=== PATIENT | female | born 1980 | race American Indian/Alaskan Native ===

== ENCOUNTER 2016-06-23 22:30 | Emergency (ER) | payer BC, MEDICAID ==
[2016-06-23] MEDS ORDERED: Sodium Chloride 0.9% 1,000 ML IV ONE (22:44)
[2016-06-23 22:50] VITALS: BP 124/79
[2016-06-23 23:21] LABS: CHLORIDE,CL 105 mmol/L (101-111); SODIUM,NA 134 mmol/L (135-145)
[2016-06-23] MEDS ORDERED: Potassium Chloride 10 MEQ in Premix Bag 1 BAG IV ONE (23:30)
[2016-06-24] MEDS ORDERED: Sodium Chloride 0.9% 1,000 ML IV ONE (00:09)
[2016-06-24] MEDS ORDERED: Metoclopramide 10 MG/2 ML SDV IVPUSH ONE (00:13)
[2016-06-24] MEDS ORDERED: Potassium Chloride 10 MEQ in Premix Bag 1 BAG IV ONE (01:13)
--- NOTE | 2016-06-24 02:43 | EDM.PDOC ---
ED HPI GENERAL MEDICAL PROBLEM - General Chief Complaint: Gastrointestinal Problem Stated Complaint: VOMITING X4 DAYS, Time Seen by Provider: 06/23/16 23:00 Source of Information: Reports: Patient History Limitations: Reports: No Limitations - History of Present Illness INITIAL COMMENTS - FREE TEXT/NARRATIVE: c/o nausea and vomiting x 4 days, not feeling movement, estimates 21 weeks , LMP sometime around end january. At S on Saturday, given 2 liters of fluid and potassium , notes was told would get something for nausea but only got vitamins. No OB visit yet. Staes with vomiting feels like she is leaking mucus type fluid. Quality: Reports: Burning Severity: Moderate Associated Symptoms: Reports: Loss of Appetite, Malaise, Nausea/Vomiting ( unable to keep even sips of liquid down today.) Abdomen Pain Score (Numeric/FACES): 8 - Related Data Allergies Allergy/AdvReac Type Severity Reaction Status Date / Time No Known Allergies Allergy Verified 06/23/16 22:47 Home Meds: Home Meds Vits #93/Iron Fum/FA [ Formula Tablet] 1 tab PO DAILY 09/09/15 [History] Past Medical History HEENT History: Reports: None Cardiovascular History: Reports: None Respiratory History: Reports: None Gastrointestinal History: Reports: Other (See Below) Other Gastrointestinal History: "stomach infection" Genitourinary History: Reports: None [employer] History: Reports: Other OB/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 21 weeks along Musculoskeletal History: Reports: RA Neurological History: Reports: None Psychiatric History: Reports: Addiction, Depression Endocrine/Metabolic History: Reports: None Hematologic History: Reports: Anemia Other Immunologic History: RA Oncologic (Cancer) History: Reports: None Dermatologic History: Reports: Cellulitis, Eczema Other Dermatologic History: eczema - Infectious Disease History Infectious Disease History: Reports: Chicken Pox, Shingles Social & Family History - Tobacco Use Smoking Status *Q: Never Smoker Years of Tobacco use: 10 Packs/Tins Daily: 0.3 Used Tobacco, but Quit: No Second Hand Smoke Exposure: No - Caffeine Use Caffeine Use: Reports: Coffee - Recreational Drug Use Recreational Drug Use: No Drug Use in Last 12 Months: Yes Recreational Drug Type: Reports: Marijuana/Hashish Recreational Drug Use Frequency: Socially Recreational Drug Last Use: t-3 ED ROS GENERAL - Review of Systems Review Of Systems: ROS reveals no pertinent complaints other than HPI. ED EXAM, GI/ABD - Physical Exam Exam: See Below Exam Limited By: No Limitations General Appearance: Alert, Moderate Distress, Thin Eyes: Bilateral: EOMI Ears: Normal External Exam, Normal TMs Nose: Normal Inspection Throat/Mouth: Normal Inspection Head: Atraumatic, Normocephalic Neck: Normal Inspection, Supple, Non-Tender Respiratory/Chest: No Respiratory Distress, Lungs Clear Cardiovascular: Normal Peripheral Pulses, Regular Rate, Rhythm GI/Abdominal: Normal Bowel Sounds, Soft (Female) Exam: Deferred, Other (FHT doppled 140-150) Extremities: Normal Inspection Neurological: Alert, Oriented, Normal Cognition Psychiatric: Normal Affect Skin Exam: Warm, Dry, Intact, Normal Color Course - Vital Signs Last Recorded V/S: Last Vital Signs Temp 97.0 F 06/23/16 22:47 Pulse 85 06/23/16 22:47 Resp 18 06/23/16 22:47 BP 124/79 06/23/16 22:47 Pulse Ox 100 06/23/16 22:47 - Orders/Labs/Meds Orders: Active Orders 24 hr Category Date Time Status EKG 12 Lead [EKG Documentation Completion] [RC] URGENT Care 06/23/16 23:33 Active OB Ltd 1 or More Fetus [US] Urgent Exams 06/23/16 23:10 Taken Labs: Laboratory Tests 06/23/16 06/23/16 06/23/16 Range/Units 22:43 22:43 22:54 WBC 6.7 (5.0-10.0) 10^3/uL RBC 4.21 (4.2-5.4) 10^6/uL Hgb 12.0 (12.0-16.0) g/dL Hct 35.3 L (37.0-47.0) % MCV 83.8 (80-100) fL MCH 28.5 (27.0-34.0) pg MCHC 34.0 (33.0-35.0) g/dL Plt Count 240 (150-450) 10^3/uL Neut % (Auto) 73.3 (42.2-75.2) % Lymph % (Auto) 15.9 L (20.5-50.1) % [place] % (Auto) 10.7 H (2-8) % Eos % (Auto) 0.0 L (1.0-3.0) % Baso % (Auto) 0.1 (0.0-1.0) % Sodium (135-145) mmol/L Potassium (3.6-5.0) mmol/L Chloride (101-111) mmol/L Carbon Dioxide (21.0-31.0) mmol/L Anion Gap BUN (7-18) mg/dL Creatinine (0.6-1.3) mg/dL Est Cr Clr Drug Dosing mL/min Estimated GFR (MDRD) BUN/Creatinine Ratio Glucose (74-105) mg/dL Calcium (8.4-10.2) mg/dl Magnesium (1.8-2.5) mg/dL Total Bilirubin (0.2-1.0) mg/dL AST (10-42) IU/L ALT (10-60) IU/L Alkaline Phosphatase (42-121) IU/L Total Protein (6.7-8.2) g/dl Albumin (3.2-5.5) g/dl Globulin Albumin/Globulin Ratio Amylase (28-100) U/L Lipase (22-51) U/L HCG, Quant (0-25) mIU/ml Beta HCG, Quant mIU/ml Urine Color Dark yellow (YELLOW) Urine Appearance Slightly cloudy (CLEAR) Urine pH 7.0 (5.0-9.0) Ur Specific [place] 1.015 (1.005-1.030) Urine Protein 30 H (NEGATIVE) Urine Glucose (UA) Negative (NEGATIVE) Urine Ketones 80 H (NEGATIVE) Urine Occult Blood Negative (NEGATIVE) Urine Nitrite Negative (NEGATIVE) Urine Bilirubin Moderate H (NEGATIVE) Urine Urobilinogen 2.0 H (0.2-1.0) mg/dL Ur Leukocyte Esterase Negative (NEGATIVE) Urine RBC 0-5 /HPF Urine WBC 10-20 H (0-5/HPF) /HPF Ur Epithelial Cells Moderate H /HPF Urine Bacteria Few (0-FEW/HPF) /HPF Urine Mucus Few H /LPF Urine Opiates Screen Negative (NEGATIVE) Ur Oxycodone Screen Negative (NEGATIVE) Urine Methadone Screen Negative (NEGATIVE) Ur Barbiturates Screen Negative (NEGATIVE) U Tricyclic Antidepress Negative (NEGATIVE) Ur Phencyclidine Scrn Negative (NEGATIVE) Ur Amphetamine Screen Negative (NEGATIVE) U Methamphetamines Scrn Negative (NEGATIVE) Urine MDMA Screen Negative (NEGATIVE) U Benzodiazepines Scrn Negative (NEGATIVE) Urine Cocaine Screen Negative (NEGATIVE) U Marijuana (THC) Screen Positive H (NEGATIVE) Ethyl Alcohol mg/dL 06/23/16 06/23/16 Range/Units 22:54 22:54 WBC (5.0-10.0) 10^3/uL RBC (4.2-5.4) 10^6/uL Hgb (12.0-16.0) g/dL Hct (37.0-47.0) % MCV (80-100) fL MCH (27.0-34.0) pg MCHC (33.0-35.0) g/dL Plt Count (150-450) 10^3/uL Neut % (Auto) (42.2-75.2) % Lymph % (Auto) (20.5-50.1) % [place] % (Auto) (2-8) % Eos % (Auto) (1.0-3.0) % Baso % (Auto) (0.0-1.0) % Sodium 134 L (135-145) mmol/L Potassium 2.4 L (3.6-5.0) mmol/L Chloride 105 (101-111) mmol/L Carbon Dioxide 23.0 (21.0-31.0) mmol/L Anion Gap 8.4 BUN 9 (7-18) mg/dL Creatinine 0.4 L (0.6-1.3) mg/dL Est Cr Clr Drug Dosing 166.28 mL/min Estimated GFR (MDRD) > 60 BUN/Creatinine Ratio 22.50 Glucose 92 (74-105) mg/dL Calcium 8.4 (8.4-10.2) mg/dl Magnesium 1.8 (1.8-2.5) mg/dL Total Bilirubin 0.9 (0.2-1.0) mg/dL AST 18 (10-42) IU/L ALT 13 (10-60) IU/L Alkaline Phosphatase 37 L (42-121) IU/L Total Protein 6.9 (6.7-8.2) g/dl Albumin 3.2 (3.2-5.5) g/dl Globulin 3.7 Albumin/Globulin Ratio 0.86 Amylase 131 H (28-100) U/L Lipase 42 (22-51) U/L HCG, Quant > 1370 H (0-25) mIU/ml Beta HCG, Quant 61662 mIU/ml Urine Color (YELLOW) Urine Appearance (CLEAR) Urine pH (5.0-9.0) Ur Specific [place] (1.005-1.030) Urine Protein (NEGATIVE) Urine Glucose (UA) (NEGATIVE) Urine Ketones (NEGATIVE) Urine Occult Blood (NEGATIVE) Urine Nitrite (NEGATIVE) Urine Bilirubin (NEGATIVE) Urine Urobilinogen (0.2-1.0) mg/dL Ur Leukocyte Esterase (NEGATIVE) Urine RBC /HPF Urine WBC (0-5/HPF) /HPF Ur Epithelial Cells /HPF Urine Bacteria (0-FEW/HPF) /HPF Urine Mucus /LPF Urine Opiates Screen (NEGATIVE) Ur Oxycodone Screen (NEGATIVE) Urine Methadone Screen (NEGATIVE) Ur Barbiturates Screen (NEGATIVE) U Tricyclic Antidepress (NEGATIVE) Ur Phencyclidine Scrn (NEGATIVE) Ur Amphetamine Screen (NEGATIVE) U Methamphetamines Scrn (NEGATIVE) Urine MDMA Screen (NEGATIVE) U Benzodiazepines Scrn (NEGATIVE) Urine Cocaine Screen (NEGATIVE) U Marijuana (THC) Screen (NEGATIVE) Ethyl Alcohol < 5 mg/dL Meds: Medications Discontinued Medications Generic Name Dose Route Start Last Admin Trade Name Freq PRN Reason Stop Dose Admin Famotidine Confirm 06/24/16 02:45 06/24/16 02:49 Pepcid Administered 06/24/16 02:46 Not Given Dose 20 mg .ROUTE .STK-MED ONE Sodium Chloride 1,000 mls @ 999 mls/hr 06/23/16 22:44 06/23/16 22:56 Normal Saline IV 06/23/16 23:44 999 mls/hr .BOLUS ONE Administration Potassium Chloride 10 meq/ 100 mls @ 100 mls/hr 06/23/16 23:30 06/23/16 23:54 Premix IV 06/24/16 00:29 100 mls/hr ONETIME ONE Administration Sodium Chloride 1,000 mls @ 400 mls/hr 06/24/16 00:09 06/24/16 00:10 Normal Saline IV 06/24/16 02:38 400 mls/hr .BOLUS ONE Administration Potassium Chloride 10 meq/ 100 mls @ 100 mls/hr 06/24/16 01:13 06/24/16 01:25 Premix IV 06/24/16 02:12 100 mls/hr ONETIME ONE Administration Metoclopramide HCl 10 mg 06/24/16 00:13 06/24/16 00:18 Reglan IVPUSH 06/24/16 00:14 10 mg ONETIME ONE Administration Ondansetron HCl Confirm 06/24/16 02:45 06/24/16 02:49 Zofran Odt Administered 06/24/16 02:46 Not Given Dose 12 mg .ROUTE .STK-MED ONE - Radiology Interpretation Free Text/Narrative:: OB ultrasound, 31/03, normal appearing placenta and level of amniotic fluid. - Re-Assessments/Exams Free Text/Narrative Re-Assessment/Exam: 06/24/16 05:14 nausea improved, continued mild burning in stomach TC consult dr Jansen, recommend continued outpatient management with adition of pepcid and zofran to manage symptoms. Patient is agreeable. Departure - Departure Time of Disposition: 02:35 Disposition: Home, Self-Care 01 Condition: fair Clinical Impression: Hypokalemia, Second trimester Hyperemesis Qualifiers: Vomiting type: cyclical vomiting Nausea presence: with nausea Qualified Code(s) : G43.A1 - Cyclical vomiting, intractable - Discharge Information Instructions: Dehydration, Adult, [id number] Forms: ED Department Discharge Additional Instructions: Recheck potassium on saturday high potassium food, watermelon potatoes, melons and bananas zofran odt 4mg every 6 hours as needed for nausea pepcid 20mg daily for indigestion heartburn follow up with OB - My Orders Last 24 Hours: My Active Orders 06/23/16 23:10 OB Ltd 1 or More Fetus [US] Urgent 06/23/16 23:33 EKG 12 Lead [EKG Documentation Completion] [RC] URGENT - Assessment/Plan Last 24 Hours: My Active Orders 06/23/16 23:10 OB Ltd 1 or More Fetus [US] Urgent 06/23/16 23:33 EKG 12 Lead [EKG Documentation Completion] [RC] URGENT
[2016-06-24] MEDS ORDERED: Famotidine 20 MG Tab ONE (02:45)
[2016-06-24] MEDS ORDERED: Ondansetron 4 MG Tab.DIS ONE (02:45)
[2016-06-24] MEDS ORDERED: Famotidine 20 MG Tab PO ONE (02:45)
[2016-06-24] MEDS ORDERED: Ondansetron 4 MG Tab.DIS PO ONE (02:45)
--- NOTE | 2016-06-26 14:07 | EKG ---
06/23/2016 - SELVIN SHEA I reviewed the EKG, agree with the machine's reading. [facility] /[id number]
== END 2016-06-24 02:47 | disposition home or self-care (01) ==
LOC: DL.ED 22:30
DX: O09.522 Supervision of elderly multigravida, second trimester (principal); O99.282 Endocrine, nutritional and metabolic diseases complicating pregnancy, second trimester; E87.6 Hypokalemia; G43.A1 Cyclical vomiting, in migraine, intractable; F32.9 Major depressive disorder, single episode, unspecified; D64.9 Anemia, unspecified; M06.9 Rheumatoid arthritis, unspecified; Z3A.21 21 weeks gestation of pregnancy; Z79.899 Other long term (current) drug therapy
CPT/HCPCS: 36415; 76815; 80053; 80305; 81001; 82150; 83690; 83735; 84702; 85025; 93005; 93010; 96361; 96365; 96366; 96375; 99284; G0480; J2765; J3480; J7030; A9270-GY

== ENCOUNTER 2017-02-20 13:39 | Observation (INO) | payer MEDICAID, OTHER ==
[2017-02-20] MEDS ORDERED: Ondansetron 4 MG/2 ML SDV IV ONE ×2 (16:01→21:26)
[2017-02-20] MEDS ORDERED: Sodium Chloride 0.9% 1,000 ML IV ONE (16:01)
--- NOTE | 2017-02-20 16:07 | EDM.PDOC ---
<Naila Faith - Last Filed: 02/20/17 17:15> ED HPI GENERAL MEDICAL PROBLEM - General Chief Complaint: Abdominal Pain Stated Complaint: SICK X 3 DAYS, [facility] WOULD NOT SEE Time Seen by Provider: 02/20/17 15:56 Source of Information: Reports: Patient, RN, RN Notes Reviewed History Limitations: Reports: No Limitations - History of Present Illness INITIAL COMMENTS - FREE TEXT/NARRATIVE: Pt presents to the ER with c/o vomiting for 3 days. She states she cannot hold water down. She c/o "stomach and kidney pain". She rates the pain 11/20. Pt admits to fever, chills, N/V/D, chest pain, SOB, burning, frequency, urgency with urination. Pt also c/o metallic taste in the mouth. Onset: Sudden Onset Date: 02/17/17 Duration: Getting Worse Location: Reports: Abdomen Quality: Reports: Sharp, Throbbing Improves with: Reports: None Worsens with: Reports: None Associated Symptoms: Reports: Chest Pain, Cough, Fever/Chills, Loss of Appetite , Nausea/Vomiting, Shortness of Breath, Weakness Abdomen Pain Score (Numeric/FACES): 10 - Related Data Allergies Allergy/AdvReac Type Severity Reaction Status Date / Time No Known Allergies Allergy Verified 02/20/17 14:27 Past Medical History HEENT History: Reports: None Cardiovascular History: Reports: None Respiratory History: Reports: None Gastrointestinal History: Reports: Other (See Below) Other Gastrointestinal History: "stomach infection" Genitourinary History: Reports: 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 21 weeks along Musculoskeletal History: Reports: RA Neurological History: Reports: None Psychiatric History: Reports: Addiction, Depression Endocrine/Metabolic History: Reports: None Hematologic History: Reports: Anemia Other Immunologic History: RA Oncologic (Cancer) History: Reports: None Dermatologic History: Reports: Cellulitis, Eczema Other Dermatologic History: eczema - Infectious Disease History Infectious Disease History: Reports: Chicken Pox, Shingles Social & Family History - Tobacco Use Smoking Status *Q: Never Smoker Years of Tobacco use: 10 Packs/Tins Daily: 0.3 Used Tobacco, but Quit: No Second Hand Smoke Exposure: Yes - Caffeine Use Caffeine Use: Reports: Coffee, Soda - Recreational Drug Use Recreational Drug Use: No Drug Use in Last 12 Months: Yes Recreational Drug Type: Reports: Marijuana/Hashish Recreational Drug Use Frequency: Socially Recreational Drug Last Use: t-3 ED ROS GENERAL - Review of Systems Review Of Systems: ROS reveals no pertinent complaints other than HPI. ED EXAM, GI/ABD - Physical Exam Exam: See Below Exam Limited By: No Limitations General Appearance: Alert, WD/WN, Moderate Distress Eyes: Bilateral: Normal Appearance, EOMI Ears: Normal External Exam, Hearing Grossly Normal Nose: Normal Inspection Throat/Mouth: Normal Inspection, Normal Voice, No Airway Compromise Head: Atraumatic, Normocephalic Neck: Normal Inspection, Full Range of Motion Respiratory/Chest: No Respiratory Distress, Lungs Clear, Normal Breath Sounds, No Accessory Muscle Use, Chest Non-Tender Cardiovascular: Normal Peripheral Pulses, Regular Rate, Rhythm, No Edema, No Gallop, No JVD, No Murmur, No Rub GI/Abdominal Exam: Normal Bowel Sounds, Soft, Tender (Female) Exam: Deferred Rectal (Female) Exam: Deferred Back Exam: Normal Inspection, Full Range of Motion Extremities: Normal Inspection, Normal Range of Motion, Non-Tender, No Pedal Edema, Normal Capillary Refill Neurological: Alert, Oriented, CN II-XII Intact, Normal Cognition, No Motor/ Sensory Deficits Psychiatric: Normal Affect, Depressed Mood, Tearful Skin Exam: Warm, Dry, Intact, Normal Color, No Rash Lymphatic: No Adenopathy Course - Vital Signs Last Recorded V/S: Last Vital Signs Temp 38.2 C H 02/21/17 02:55 Pulse 93 02/21/17 02:55 Resp 16 02/21/17 02:55 BP 135/79 02/21/17 02:55 Pulse Ox 100 02/21/17 02:55 - Orders/Labs/Meds Orders: Active Orders 24 hr Category Date Time Status Vital Signs [RC] Q4H Care 02/20/17 21:46 Active Clear Liquid Diet [DIET] Diet 02/20/17 Dinner Active CBC WITH AUTO DIFF [HEME] Stat Lab 02/21/17 07:01 Ordered COMPREHENSIVE METABOLIC PN,CMP [CHEM] Stat Lab 02/21/17 07:01 Ordered CULTURE BLOOD [BC] Stat Lab 02/20/17 15:48 Received CULTURE BLOOD [BC] Stat Lab 02/20/17 17:16 Received MAGNESIUM [CHEM] Stat Lab 02/21/17 07:01 Ordered Acetaminophen [Tylenol] Med 02/21/17 03:19 Active 650 mg PO ONETIME PRN Blood Culture x2 Reflex Set [OM.PC] Stat Oth 02/20/17 16:01 Ordered Medication Orders Acetaminophen (Tylenol) 650 mg PO ONETIME PRN PRN Reason: Fever Stop: 02/21/17 07:30 Last Admin: 02/21/17 03:54 Dose: 650 mg Labs: Laboratory Tests 02/20/17 02/20/17 02/20/17 Range/Units 14:45 14:45 14:45 WBC (5.0-10.0) 10^3/uL RBC (4.2-5.4) 10^6/uL Hgb (12.0-16.0) g/dL Hct (37.0-47.0) % MCV (80-100) fL MCH (27.0-34.0) pg MCHC (33.0-35.0) g/dL Plt Count (150-450) 10^3/uL Neut % (Auto) (42.2-75.2) % Lymph % (Auto) (20.5-50.1) % [place] % (Auto) (2-8) % Eos % (Auto) (1.0-3.0) % Baso % (Auto) (0.0-1.0) % Sodium (135-145) mmol/L Potassium (3.6-5.0) mmol/L Chloride (101-111) mmol/L Carbon Dioxide (21.0-31.0) mmol/L Anion Gap BUN (7-18) mg/dL Creatinine (0.6-1.3) mg/dL Est Cr Clr Drug Dosing mL/min Estimated GFR (MDRD) BUN/Creatinine Ratio Glucose (74-105) mg/dL Lactic Acid (0.5-2.2) mmol/L Calcium (8.4-10.2) mg/dl Total Bilirubin (0.2-1.0) mg/dL AST (10-42) IU/L ALT (10-60) IU/L Alkaline Phosphatase (42-121) IU/L Total Protein (6.7-8.2) g/dl Albumin (3.2-5.5) g/dl Globulin Albumin/Globulin Ratio Urine Color Dark yellow (YELLOW) Urine Appearance Turbid (CLEAR) Urine pH 5.5 (5.0-9.0) Ur Specific [place] 1.025 (1.005-1.030) Urine Protein 30 H (NEGATIVE) Urine Glucose (UA) Negative (NEGATIVE) Urine Ketones Trace H (NEGATIVE) Urine Occult Blood Negative (NEGATIVE) Urine Nitrite Negative (NEGATIVE) Urine Bilirubin Negative (NEGATIVE) Urine Urobilinogen 0.2 (0.2-1.0) mg/dL Ur Leukocyte Esterase Negative (NEGATIVE) Urine RBC 0-5 /HPF Urine WBC 5-10 H (0-5/HPF) /HPF Ur Epithelial Cells Few /HPF Amorphous Sediment Many H (0/HPF) /HPF Urine Bacteria Few (0-FEW/HPF) /HPF Urine Mucus Moderate H /LPF Urine HCG, Qual Negative Urine Opiates Screen Negative (NEGATIVE) Ur Oxycodone Screen Negative (NEGATIVE) Urine Methadone Screen Negative (NEGATIVE) Ur Barbiturates Screen Negative (NEGATIVE) U Tricyclic Antidepress Negative (NEGATIVE) Ur Phencyclidine Scrn Negative (NEGATIVE) Ur Amphetamine Screen Negative (NEGATIVE) U Methamphetamines Scrn Negative (NEGATIVE) Urine MDMA Screen Negative (NEGATIVE) U Benzodiazepines Scrn Negative (NEGATIVE) Urine Cocaine Screen Negative (NEGATIVE) U Marijuana (THC) Screen Positive H (NEGATIVE) Ethyl Alcohol mg/dL 02/20/17 02/20/17 02/20/17 Range/Units 15:48 15:48 15:48 WBC 8.6 (5.0-10.0) 10^3/uL RBC 5.56 H (4.2-5.4) 10^6/uL Hgb 13.4 (12.0-16.0) g/dL Hct 41.4 (37.0-47.0) % MCV 74.5 L D (80-100) fL MCH 24.1 L (27.0-34.0) pg MCHC 32.4 L (33.0-35.0) g/dL Plt Count 423 D (150-450) 10^3/uL Neut % (Auto) 67.7 (42.2-75.2) % Lymph % (Auto) 20.4 L (20.5-50.1) % [place] % (Auto) 11.8 H (2-8) % Eos % (Auto) 0.0 L (1.0-3.0) % Baso % (Auto) 0.1 (0.0-1.0) % Sodium 138 (135-145) mmol/L Potassium 2.8 L (3.6-5.0) mmol/L Chloride 98 L (101-111) mmol/L Carbon Dioxide 29.0 (21.0-31.0) mmol/L Anion Gap 13.8 BUN 20 H (7-18) mg/dL Creatinine 0.7 (0.6-1.3) mg/dL Est Cr Clr Drug Dosing 86.18 mL/min Estimated GFR (MDRD) > 60 BUN/Creatinine Ratio 28.57 Glucose 101 (74-105) mg/dL Lactic Acid 1.5 (0.5-2.2) mmol/L Calcium 9.6 (8.4-10.2) mg/dl Total Bilirubin 0.4 (0.2-1.0) mg/dL AST 27 (10-42) IU/L ALT 17 (10-60) IU/L Alkaline Phosphatase 73 (42-121) IU/L Total Protein 9.7 H (6.7-8.2) g/dl Albumin 5.0 (3.2-5.5) g/dl Globulin 4.7 Albumin/Globulin Ratio 1.06 Urine Color (YELLOW) Urine Appearance (CLEAR) Urine pH (5.0-9.0) Ur Specific [place] (1.005-1.030) Urine Protein (NEGATIVE) Urine Glucose (UA) (NEGATIVE) Urine Ketones (NEGATIVE) Urine Occult Blood (NEGATIVE) Urine Nitrite (NEGATIVE) Urine Bilirubin (NEGATIVE) Urine Urobilinogen (0.2-1.0) mg/dL Ur Leukocyte Esterase (NEGATIVE) Urine RBC /HPF Urine WBC (0-5/HPF) /HPF Ur Epithelial Cells /HPF Amorphous Sediment (0/HPF) /HPF Urine Bacteria (0-FEW/HPF) /HPF Urine Mucus /LPF Urine HCG, Qual Urine Opiates Screen (NEGATIVE) Ur Oxycodone Screen (NEGATIVE) Urine Methadone Screen (NEGATIVE) Ur Barbiturates Screen (NEGATIVE) U Tricyclic Antidepress (NEGATIVE) Ur Phencyclidine Scrn (NEGATIVE) Ur Amphetamine Screen (NEGATIVE) U Methamphetamines Scrn (NEGATIVE) Urine MDMA Screen (NEGATIVE) U Benzodiazepines Scrn (NEGATIVE) Urine Cocaine Screen (NEGATIVE) U Marijuana (THC) Screen (NEGATIVE) Ethyl Alcohol < 5 mg/dL 02/20/17 Range/Units 20:10 WBC (5.0-10.0) 10^3/uL RBC (4.2-5.4) 10^6/uL Hgb (12.0-16.0) g/dL Hct (37.0-47.0) % MCV (80-100) fL MCH (27.0-34.0) pg MCHC (33.0-35.0) g/dL Plt Count (150-450) 10^3/uL Neut % (Auto) (42.2-75.2) % Lymph % (Auto) (20.5-50.1) % [place] % (Auto) (2-8) % Eos % (Auto) (1.0-3.0) % Baso % (Auto) (0.0-1.0) % Sodium 140 (135-145) mmol/L Potassium 3.4 L (3.6-5.0) mmol/L Chloride 108 (101-111) mmol/L Carbon Dioxide 26.0 (21.0-31.0) mmol/L Anion Gap 9.4 BUN 16 (7-18) mg/dL Creatinine 0.5 L (0.6-1.3) mg/dL Est Cr Clr Drug Dosing 120.66 mL/min Estimated GFR (MDRD) > 60 BUN/Creatinine Ratio Glucose 112 H (74-105) mg/dL Lactic Acid (0.5-2.2) mmol/L Calcium 7.8 L D (8.4-10.2) mg/dl Total Bilirubin (0.2-1.0) mg/dL AST (10-42) IU/L ALT (10-60) IU/L Alkaline Phosphatase (42-121) IU/L Total Protein (6.7-8.2) g/dl Albumin (3.2-5.5) g/dl Globulin Albumin/Globulin Ratio Urine Color (YELLOW) Urine Appearance (CLEAR) Urine pH (5.0-9.0) Ur Specific [place] (1.005-1.030) Urine Protein (NEGATIVE) Urine Glucose (UA) (NEGATIVE) Urine Ketones (NEGATIVE) Urine Occult Blood (NEGATIVE) Urine Nitrite (NEGATIVE) Urine Bilirubin (NEGATIVE) Urine Urobilinogen (0.2-1.0) mg/dL Ur Leukocyte Esterase (NEGATIVE) Urine RBC /HPF Urine WBC (0-5/HPF) /HPF Ur Epithelial Cells /HPF Amorphous Sediment (0/HPF) /HPF Urine Bacteria (0-FEW/HPF) /HPF Urine Mucus /LPF Urine HCG, Qual Urine Opiates Screen (NEGATIVE) Ur Oxycodone Screen (NEGATIVE) Urine Methadone Screen (NEGATIVE) Ur Barbiturates Screen (NEGATIVE) U Tricyclic Antidepress (NEGATIVE) Ur Phencyclidine Scrn (NEGATIVE) Ur Amphetamine Screen (NEGATIVE) U Methamphetamines Scrn (NEGATIVE) Urine MDMA Screen (NEGATIVE) U Benzodiazepines Scrn (NEGATIVE) Urine Cocaine Screen (NEGATIVE) U Marijuana (THC) Screen (NEGATIVE) Ethyl Alcohol mg/dL Meds: Medications Generic Name Dose Route Start Last Admin Trade Name Freq PRN Reason Stop Dose Admin Acetaminophen 650 mg 02/21/17 03:19 02/21/17 03:54 Tylenol PO 02/21/17 07:30 650 mg ONETIME PRN Administration Fever Discontinued Medications Generic Name Dose Route Start Last Admin Trade Name Freq PRN Reason Stop Dose Admin Acetaminophen 650 mg 02/20/17 17:06 02/20/17 18:04 Tylenol PO 02/20/17 17:07 650 mg NOW ONE Administration Famotidine 20 mg 02/20/17 21:25 02/20/17 21:40 Pepcid IVPUSH 02/20/17 21:26 20 mg ONETIME ONE Administration Sodium Chloride 1,000 mls @ 999 mls/hr 02/20/17 16:01 02/20/17 16:12 Normal Saline IV 02/20/17 17:01 999 mls/hr .BOLUS ONE Administration Potassium Chloride/Sodium Chloride 1,000 mls @ 500 mls/hr 02/20/17 17:00 11/28 20:19 Normal Saline With 20 Meq Kcl IV 500 mls/hr ASDIRECTED LINA Administration Dextrose/Sodium Chloride 1,000 mls @ 150 mls/hr 02/20/17 22:27 Dextrose 5%-1/4 Ns IV 02/21/17 05:06 ONETIME ONE Dextrose/Sodium Chloride 1,000 mls @ 125 mls/hr 02/20/17 22:37 02/21/17 01:44 Dextrose 5%-1/2 Ns IV 02/21/17 06:36 Not Given ONETIME ONE Dextrose/Sodium Chloride 500 mls @ 150 mls/hr 02/20/17 22:44 02/21/17 01:45 Dextrose 5%-1/4 Ns IV 02/21/17 01:46 150 mls/hr ONETIME ONE Administration Metoclopramide HCl 10 mg 02/21/17 03:51 02/21/17 03:54 Reglan IVPUSH 02/21/17 03:52 10 mg ONETIME ONE Administration Ondansetron HCl 4 mg 02/20/17 16:01 02/20/17 16:12 Zofran IV 02/20/17 16:02 4 mg ONETIME ONE Administration Ondansetron HCl 4 mg 02/20/17 21:26 02/20/17 21:38 Zofran IV 02/20/17 21:27 4 mg ONETIME ONE Administration Departure - Departure Disposition: Refer to Observation Clinical Impression: Gastroenteritis, Hypokalemia - Discharge Information Forms: ED Department Discharge - My Orders Last 24 Hours: My Active Orders 02/20/17 Dinner Clear Liquid Diet [DIET] 02/21/17 07:01 CBC WITH AUTO DIFF [HEME] Stat COMPREHENSIVE METABOLIC PN,CMP [CHEM] Stat MAGNESIUM [CHEM] Stat - Assessment/Plan Last 24 Hours: My Active Orders 02/20/17 Dinner Clear Liquid Diet [DIET] 02/21/17 07:01 CBC WITH AUTO DIFF [HEME] Stat COMPREHENSIVE METABOLIC PN,CMP [CHEM] Stat MAGNESIUM [CHEM] Stat <Taina Martinez - Last Filed: 02/21/17 06:51> Course - Re-Assessments/Exams Free Text/Narrative Re-Assessment/Exam: 02/20/17 21:26 Resting, VSS. C/O nausea and burning in stomach. IVF continue infusing. Orders for IV pepcid and zofran. 02/21/17 06:50 Intermittent dozing through night. C/o continued nausea, no vomiting, limited oral intake. Fever T max 100.[address] Barney. Departure - Departure Time of Disposition: 22:39 - My Orders Last 24 Hours: My Active Orders 02/20/17 Dinner Clear Liquid Diet [DIET] 02/21/17 07:01 CBC WITH AUTO DIFF [HEME] Stat COMPREHENSIVE METABOLIC PN,CMP [CHEM] Stat MAGNESIUM [CHEM] Stat - Assessment/Plan Last 24 Hours: My Active Orders 02/20/17 Dinner Clear Liquid Diet [DIET] 02/21/17 07:01 CBC WITH AUTO DIFF [HEME] Stat COMPREHENSIVE METABOLIC PN,CMP [CHEM] Stat MAGNESIUM [CHEM] Stat <EctorFengian - Last Filed: 02/21/17 07:27> Course - Re-Assessments/Exams Free Text/Narrative Re-Assessment/Exam: 02/21/17 07:23 Assumed care of pt from Taina BUCHANAN at 0700HR shift change with pt on the medical floor as an extended ER stay. The pt is well past a 4HR extended ER stay with continued nausea and low potassium. Morning labs pending. Pt will be converted to observation status and admitted by Dr. Mitchell. Departure - Departure Time of Disposition: 07:26 (admitted to Dr. Mitchell) Condition: Fair
[2017-02-20 16:34] LABS: CHLORIDE,CL 98 mmol/L (101-111); SODIUM,NA 138 mmol/L (135-145)
[2017-02-20] MEDS ORDERED: Acetaminophen 325 MG Tab PO ONE (17:06)
[2017-02-20] MEDS: NS + KCl 20mEq/L 1,000 ML IV SCH ×2 (18:04→20:19)
[2017-02-20 20:41] LABS: CHLORIDE,CL 108 mmol/L (101-111); SODIUM,NA 140 mmol/L (135-145)
[2017-02-20] MEDS ORDERED: Famotidine 20 MG/2 ML SDV IVPUSH ONE (21:25)
[2017-02-20] MEDS ORDERED: Dextrose 5 %-0.2 % NaCl 1,000 ML IV ONE (22:27)
[2017-02-20] MEDS ORDERED: Dextrose 5%-0.45% NaCl 1,000 ML IV ONE (22:37)
[2017-02-21] MEDS ORDERED: Acetaminophen 325 MG Tab PO PRN ×2 (03:19→08:00)
[2017-02-21] MEDS ORDERED: Metoclopramide 10 MG/2 ML SDV IVPUSH ONE (03:51)
[2017-02-21 07:52] LABS: CHLORIDE,CL 108 mmol/L (101-111); SODIUM,NA 138 mmol/L (135-145)
[2017-02-21] MEDS ORDERED: Ondansetron 4 MG/2 ML SDV IV PRN (07:58)
[2017-02-21] MEDS ORDERED: Sodium Chloride 0.9% 10 ML Syringe FLUSH PRN (08:00)
[2017-02-21] MEDS ORDERED: Zolpidem 5 MG Tab PO PRN (08:00)
--- NOTE | 2017-02-21 08:15 | PCM.HP ---
H&P History of Present Illness - General Date of Service: 02/21/17 Admit Problem/Dx: Admission Diagnosis/Problem Admission Diagnosis/Problem Nausea and vomiting Source of Information: Patient - History of Present Illness Initial Comments - Free Text/Narative: The patient is a 37-year-old lady with a history of alcohol use, marijuana use, rheumatoid arthritis. She presented with about 3 days of nausea vomiting. Associated with moderate lower abdominal pain. The pain is crampy. She describes foul-smelling urine, decreased oral intake, no blood in stool or urine. She had low-grade fever. She was noted to have severe hypokalemia. During an extended ER visit the patient has been receiving IV fluid and potassium supplement. She feels somewhat better but still has crampy pain and nausea. 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 21 weeks along Musculoskeletal History: Reports: RA Neurological History: Reports: None Psychiatric History: Reports: Addiction, Depression Endocrine/Metabolic History: Reports: None Hematologic History: Reports: Anemia Other Immunologic History: RA Oncologic (Cancer) History: Reports: None Dermatologic History: Reports: Cellulitis, Eczema Other Dermatologic History: eczema - Infectious Disease History Infectious Disease History: Reports: Chicken Pox, Shingles Social & Family History - Tobacco Use Smoking Status *Q: Never Smoker Years of Tobacco use: 10 Packs/Tins Daily: 0.3 Used Tobacco, but Quit: No Second Hand Smoke Exposure: Yes - Caffeine Use Caffeine Use: Reports: Coffee, Soda - Recreational Drug Use Recreational Drug Use: No Drug Use in Last 12 Months: Yes Recreational Drug Type: Reports: Marijuana/Hashish Recreational Drug Use Frequency: Socially Recreational Drug Last Use: t-3 H&P Review of Systems - Review of Systems: Review Of Systems: See Below General: Reports: Fever Pulmonary: Denies: Shortness of Breath, Wheezing Cardiovascular: Denies: Chest Pain, Edema Gastrointestinal: Reports: Abdominal Pain (Low abdominal, cramping) Genitourinary: Reports: Dysuria Neurological: Denies: Confusion Exam - Exam Exam: See Below - Vital Signs Vital Signs: Last Vital Signs Temp 38.2 C H 02/21/17 02:55 Pulse 93 02/21/17 02:55 Resp 16 02/21/17 02:55 BP 135/79 02/21/17 02:55 Pulse Ox 100 02/21/17 02:55 Weight: 52.163 kg - Exam General: Alert, Oriented Neck: Supple Lungs: Clear to Auscultation, Normal Respiratory Effort Cardiovascular: Regular Rate, Regular Rhythm GI/Abdominal Exam: Normal Bowel Sounds, Tender (Diffusely) Extremities: No Pedal Edema Skin: Warm, Dry Neuro Extensive - Mental Status: Alert, Oriented x3 - Patient Data Result Diagrams: 02/21/17 07:18 02/21/17 07:18 *Q Meaningful Use (ADM) - VTE *Q VTE Criteria *Q: - Stroke *Q Stroke Criteria *Q: - AMI *Q AMI Criteria *Q: - Problem List (1) Gastroenteritis SNOMED Code(s): 86855750 ICD Code: K52.9 - NONINFECTIVE GASTROENTERITIS AND COLITIS, UNSPECIFIED Status: Acute Current Visit: Yes (2) Hypokalemia SNOMED Code(s): 80807233 ICD Code: E87.6 - HYPOKALEMIA Status: Acute Current Visit: Yes (3) Fever SNOMED Code(s): 801133192 ICD Code: R50.9 - FEVER, UNSPECIFIED Status: Acute Current Visit: No Problem List Initiated/Reviewed/Updated: Yes Orders Last 24hrs: Active Orders 24 hr Category Date Time Status Patient Status [ADT] Routine ADT 02/21/17 08:00 Active Antiembolic Devices [RC] PER UNIT ROUTINE Care 02/21/17 08:01 Active Oxygen Therapy [RC] PRN Care 02/21/17 08:00 Active Peripheral IV Care [RC] . DIRECTED Care 02/21/17 08:01 Active Up With Assistance [RC] ASDIRECTED Care 02/21/17 08:00 Active VTE/DVT Education [RC] PER UNIT ROUTINE Care 02/21/17 08:00 Active Vital Signs [RC] Q4H Care 02/21/17 08:00 Active Nothing per Oral Now Diet [DIET] Diet 02/21/17 Lunch Active Acetaminophen [Tylenol] Med 02/21/17 08:00 Active 650 mg PO Q4H PRN Acetaminophen/HYDROcodone [[place] 325-10 MG] Med 02/21/17 08:00 Active 1 tab PO Q4H PRN Heparin Sodium Med 02/21/17 14:00 Active 5,000 units SUBCUT Q8HR Lactated Ringers [Ringers, Lactated] 1,000 ml Med 02/21/17 08:00 Active IV ASDIRECTED Morphine Med 02/21/17 07:59 Active 1 mg IVPUSH Q4H PRN Ondansetron [Zofran] Med 02/21/17 07:58 Active 4 mg IV Q6H PRN Pantoprazole [ProTONIX IV] Med 02/21/17 08:00 Active 40 mg IVPUSH Q12H Potassium Chloride [KCl 10 MEQ in Water 100 ML] 10 meq Med 02/21/17 08:15 Ordered Premix Bag 1 bag IV .Q2H Sodium Chloride 0.9% [Saline Flush] Med 02/21/17 08:00 Active 10 ml FLUSH ASDIRECTED PRN Zolpidem [Ambien] Med 02/21/17 08:00 Active 5 mg PO BEDTIME PRN Antiembolic Hose [OM.PC] Per Unit Routine Oth 02/21/17 08:01 Ordered Peripheral IV Insertion Adult [OM.PC] Routine Oth 02/21/17 08:00 Ordered Resuscitation Status Routine Resus Stat 02/21/17 08:00 Ordered Medication Orders Acetaminophen (Tylenol) 650 mg PO Q4H PRN PRN Reason: Pain (Mild 1-3)/fever Hydrocodone Bitart/Acetaminophen ([place] 325-10 Mg) 1 tab PO Q4H PRN PRN Reason: Pain (moderate 4-6) Heparin Sodium (Porcine) (Heparin Sodium) 5,000 units SUBCUT Q8HR LINA Lactated Ringer's (Ringers, Lactated) 1,000 mls @ 100 mls/hr IV ASDIRECTED LINA Potassium Chloride 10 meq/ (Premix) 100 mls @ 100 mls/hr IV .Q2H LINA Morphine Sulfate (Morphine) 1 mg IVPUSH Q4H PRN PRN Reason: Pain Ondansetron HCl (Zofran) 4 mg IV Q6H PRN PRN Reason: Nausea/Vomiting Pantoprazole Sodium (Protonix Iv) 40 mg IVPUSH Q12H LINA Sodium Chloride (Saline Flush) 10 ml FLUSH ASDIRECTED PRN PRN Reason: Keep Vein Open Zolpidem Tartrate (Ambien) 5 mg PO BEDTIME PRN PRN Reason: Sleep Assessment/Plan Comment:: Nausea, vomiting abdominal pain Patient's labs other than hypokalemia relatively benign. There is increased prevalence of similar nausea and vomiting episodes in the community activity relating to a viral infection. We'll treat the patient symptomatically For now keep nothing by mouth, use pain medication, nausea medication, Protonix. Hypokalemia Likely relates to the nausea, vomiting, decreased oral intake Will continue to supplement IV Hydrate the patient No apparent urinary tract infection or signs of kidney dysfunction or kidney stone Discussed with Dr. Barney
[2017-02-21] MEDS: Lactated Ringers 1,000 ML IV SCH ×2 (08:40→19:59)
[2017-02-21] MEDS: Pantoprazole 40 MG Vial IVPUSH SCH ×2 (08:47→19:48)
[2017-02-21] MEDS: Morphine 2 MG/ML Syringe IVPUSH PRN ×2 (08:51→14:03)
[2017-02-21] MEDS: Potassium Chloride 10 MEQ in Premix Bag 1 BAG IV SCH ×7 (12:56→19:45)
[2017-02-21] MEDS: Heparin Sodium 5,000 Units/ML Vial SUBCUT SCH ×2 (13:06→22:03)
[2017-02-21] MEDS: Acetaminophen/HYDROcodone 325-10 MG Tab PO PRN ×2 (17:16→22:02)
[2017-02-22] MEDS: Heparin Sodium 5,000 Units/ML Vial SUBCUT SCH (06:02)
[2017-02-22] MEDS: Lactated Ringers 1,000 ML IV SCH (06:07)
[2017-02-22] MEDS: Acetaminophen/HYDROcodone 325-10 MG Tab PO PRN ×2 (06:08→10:49)
[2017-02-22] MEDS: Pantoprazole 40 MG Vial IVPUSH SCH (08:36)
[2017-02-22] MEDS ORDERED: Potassium Chloride 10 MEQ Tab.ER PO ONE (10:27)
--- NOTE | 2017-02-22 10:43 | PCM.DCSUM1 ---
Discharge Summary - Hospital Course Free Text/Narrative:: Presented with nausea, vomiting, few watery bowel movements. Was complaining of abdominal pain, crampy pain. Noted to have severe hypokalemia Nausea, vomiting abdominal pain Patient's labs other than hypokalemia relatively benign. There is increased incidence of similar nausea and vomiting episodes in the community activity relating to a viral infection. Treated the patient symptomatically Hypokalemia Likely relates to the nausea, vomiting, decreased oral intake received IV supplement No apparent urinary tract infection or signs of kidney dysfunction or kidney stone has normal WBC, doubt abdominal infection, Follow-up with her primary care physician in a few days - Discharge Data Discharge Date: 02/22/17 Discharge Disposition: Home, Self-Care 01 Condition: Good - Discharge Diagnosis/Problem(s) (1) Gastroenteritis SNOMED Code(s): 15249620 ICD Code: K52.9 - NONINFECTIVE GASTROENTERITIS AND COLITIS, UNSPECIFIED Status: Acute Current Visit: Yes (2) Hypokalemia SNOMED Code(s): 27456353 ICD Code: E87.6 - HYPOKALEMIA Status: Acute Current Visit: Yes (3) Fever SNOMED Code(s): 495805736 ICD Code: R50.9 - FEVER, UNSPECIFIED Status: Acute Current Visit: No - Patient Instructions Diet: Usual Diet as Tolerated Activity: As Tolerated - Discharge Plan Prescriptions/Med Rec: Acetaminophen/HYDROcodone [[place] 325-10 MG] 1 tab PO Q4H PRN #12 tablet PRN Reason: Pain (Moderate 4-6) Home Medications: Home Meds Acetaminophen/HYDROcodone [[place] 325-10 MG] 1 tab PO Q4H PRN #12 tablet [Rx] Forms: ED Department Discharge Referrals: Bianca Sousa MD [Physician] - (in 3 days re: hypokalemia, abd pain, n/v) - General Info Date of Service: 02/22/17 - Review of Systems General: Denies: Fever, Weakness Pulmonary: Denies: Shortness of Breath Cardiovascular: Denies: Chest Pain Gastrointestinal: Reports: Abdominal Pain (Still some crampy pain but has improved). Denies: Nausea, Vomiting Genitourinary: Denies: Dysuria Neurological: Denies: Confusion - Patient Data Vitals - Most Recent: Last Vital Signs Temp 35.9 C 02/22/17 08:00 Pulse 55 L 02/22/17 08:00 Resp 18 02/22/17 08:00 BP 126/72 02/22/17 08:00 Pulse Ox 100 02/22/17 10:06 Weight - Most Recent: 51.347 kg I&O - Last 24 hours: Intake & Output 02/21/17 02/22/17 02/22/17 22:59 06:59 14:59 Intake Total 1083 1260 Balance 1083 1260 Med Orders - Current: Current Medications Acetaminophen (Tylenol) 650 mg PO Q4H PRN PRN Reason: Pain (Mild 1-3)/fever Hydrocodone Bitart/Acetaminophen ([place] 325-10 Mg) 1 tab PO Q4H PRN PRN Reason: Pain (moderate 4-6) Last Admin: 02/22/17 06:08 Dose: 1 tab Heparin Sodium (Porcine) (Heparin Sodium) 5,000 units SUBCUT Q8HR [facility] Last Admin: 02/22/17 06:02 Dose: 5,000 units Lactated Ringer's (Ringers, Lactated) 1,000 mls @ 100 mls/hr IV ASDIRECTED [facility] Last Admin: 02/22/17 06:07 Dose: 100 mls/hr Morphine Sulfate (Morphine) 1 mg IVPUSH Q4H PRN PRN Reason: Pain Last Admin: 02/21/17 14:03 Dose: 1 mg Ondansetron HCl (Zofran) 4 mg IV Q6H PRN PRN Reason: Nausea/Vomiting Last Admin: 02/21/17 13:18 Dose: 4 mg Pantoprazole Sodium (Protonix Iv) 40 mg IVPUSH Q12H [facility] Last Admin: 02/22/17 08:36 Dose: 40 mg Sodium Chloride (Saline Flush) 10 ml FLUSH ASDIRECTED PRN PRN Reason: Keep Vein Open Last Admin: 02/22/17 08:36 Dose: 10 ml Zolpidem Tartrate (Ambien) 5 mg PO BEDTIME PRN PRN Reason: Sleep Last Admin: 02/21/17 22:02 Dose: 5 mg Discontinued Medications Acetaminophen (Tylenol) 650 mg PO NOW ONE Stop: 02/20/17 17:07 Last Admin: 02/20/17 18:04 Dose: 650 mg Acetaminophen (Tylenol) 650 mg PO ONETIME PRN PRN Reason: Fever Stop: 02/21/17 07:30 Last Admin: 02/21/17 03:54 Dose: 650 mg Famotidine (Pepcid) 20 mg IVPUSH ONETIME ONE Stop: 02/20/17 21:26 Last Admin: 02/20/17 21:40 Dose: 20 mg Sodium Chloride (Normal Saline) 1,000 mls @ 999 mls/hr IV .BOLUS ONE Stop: 02/20/17 17:01 Last Admin: 02/20/17 16:12 Dose: 999 mls/hr Potassium Chloride/Sodium Chloride (Normal Saline With 20 Meq Kcl) 1,000 mls @ 500 mls/hr IV ASDIRECTED [facility] Last Admin: 02/20/17 20:19 Dose: 500 mls/hr Dextrose/Sodium Chloride (Dextrose 5%-1/4 Ns) 1,000 mls @ 150 mls/hr IV ONETIME ONE Stop: 02/21/17 05:06 Last Admin: 02/21/17 12:57 Dose: Not Given Dextrose/Sodium Chloride (Dextrose 5%-1/2 Ns) 1,000 mls @ 125 mls/hr IV ONETIME ONE Stop: 02/21/17 06:36 Last Admin: 02/21/17 01:44 Dose: Not Given Dextrose/Sodium Chloride (Dextrose 5%-1/4 Ns) 500 mls @ 150 mls/hr IV ONETIME ONE Stop: 02/21/17 01:46 Last Admin: 02/21/17 12:59 Dose: Not Given Potassium Chloride 10 meq/ (Premix) 100 mls @ 100 mls/hr IV Q2H [facility] Stop: 02/21/17 15:29 Last Admin: 02/21/17 13:24 Dose: Not Given Potassium Chloride 10 meq/ (Premix) 100 mls @ 100 mls/hr IV Q2H [facility] Stop: 02/21/17 19:59 Last Admin: 02/21/17 19:45 Dose: 50 mls/hr Metoclopramide HCl (Reglan) 10 mg IVPUSH ONETIME ONE Stop: 02/21/17 03:52 Last Admin: 02/21/17 03:54 Dose: 10 mg Ondansetron HCl (Zofran) 4 mg IV ONETIME ONE Stop: 02/20/17 16:02 Last Admin: 02/20/17 16:12 Dose: 4 mg Ondansetron HCl (Zofran) 4 mg IV ONETIME ONE Stop: 02/20/17 21:27 Last Admin: 02/20/17 21:38 Dose: 4 mg Potassium Chloride (Klor-Con 10) 40 meq PO ONETIME ONE Stop: 02/22/17 10:28 - Exam General: Reports: Alert, Oriented Neck: Reports: Supple Lungs: Reports: Clear to Auscultation, Normal Respiratory Effort GI/Abdominal Exam: Normal Bowel Sounds, Soft, Non-Tender, No Distention. No: Distended Extremities: No Pedal Edema *Q Meaningful Use (DIS) - VTE *Q VTE Criteria *Q: - Stroke *Q Stroke Criteria *Q: - AMI *Q AMI Criteria *Q:
[2017-02-22 11:29] VITALS: BP 137/78
== END 2017-02-22 13:25 | disposition home or self-care (01) ==
LOC: DL.ED 13:39 → DL.MS 02-21 07:42 → UNDOADMOB 02-21 07:42 → DL.MS 02-21 08:00
PROVIDERS: ADMIT Internal Medicine; ATTEND Internal Medicine
DX: K52.9 Noninfective gastroenteritis and colitis, unspecified (principal); E87.6 Hypokalemia; R50.9 Fever, unspecified; M06.9 Rheumatoid arthritis, unspecified
CPT/HCPCS: 36415; 80048; 80053; 80305; 81001; 81025; 83605; 83735; 85025; 87040; A9270; C9113; G0480; J1644; J2270; J2405; J2765; J3480; J7030; J7042; J7050; J7120; 96365; 96366; 96367; 96375; 96376; 99285; S0028

== ENCOUNTER 2017-02-27 12:21 | Emergency (ER) | payer OTHER ==
[2017-02-27 12:41] VITALS: BP 117/72
[2017-02-27 13:23] LABS: ACETAMINOPHEN < 10; CHLORIDE,CL 97 mmol/L (101-111); SODIUM,NA 138 mmol/L (135-145)
[2017-02-27] MEDS ORDERED: Ondansetron 4 MG/2 ML SDV IV ONE (13:51)
[2017-02-27] MEDS ORDERED: Sodium Chloride 0.9% 1,000 ML IV ONE (13:51)
[2017-02-27] MEDS ORDERED: Iopamidol 612 MG/ML 75 ML Bottle IVPUSH ONE (14:03)
--- NOTE | 2017-02-27 14:03 | EDM.PDOC ---
ED HPI GENERAL MEDICAL PROBLEM - General Chief Complaint: Abdominal Pain Stated Complaint: VOMITTING,STOMACH CRAMPING X 2 DAYS Time Seen by Provider: 02/27/17 13:45 Source of Information: Reports: Patient History Limitations: Reports: No Limitations - History of Present Illness INITIAL COMMENTS - FREE TEXT/NARRATIVE: This 37 yo female patient reports to the ED with a 2 day history of lower abdominal cramping and nausea. The patient reports she was seen in the ED about 1 week ago with similar symptoms. The patient reports that she was feeling well up to last night (after eating potatoes and velez). The patient reports she tried to smoke marijuana to stimulate her appetite. The patient questioned if it was possible to test for anyone poisoning her at her home. The patient reports that there are people at her house that she does not trust. Onset: Sudden Onset Date: 02/26/17 Duration: Constant Location: Reports: Abdomen Quality: Reports: Ache, Dull Severity: Moderate Improves with: Reports: None Worsens with: Reports: None Associated Symptoms: Reports: No Other Symptoms Lower Abdominal Pain Score (Numeric/FACES): 8 - Related Data Allergies Allergy/AdvReac Type Severity Reaction Status Date / Time No Known Allergies Allergy Verified 02/21/17 12:28 Home Meds: Home Meds Acetaminophen/HYDROcodone [[place] 325-10 MG] 1 tab PO Q4H PRN #12 tablet [Rx] Past Medical History HEENT History: Reports: None Cardiovascular History: Reports: None Respiratory History: Reports: None Gastrointestinal History: Reports: Other (See Below) Other Gastrointestinal History: "stomach infection" Genitourinary History: Reports: None [employer] History: Reports: Other OB/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 21 weeks along Musculoskeletal History: Reports: RA Neurological History: Reports: None Psychiatric History: Reports: Addiction, Depression Endocrine/Metabolic History: Reports: None Hematologic History: Reports: Anemia Other Immunologic History: RA Oncologic (Cancer) History: Reports: None Dermatologic History: Reports: Cellulitis, Eczema Other Dermatologic History: eczema - Infectious Disease History Infectious Disease History: Reports: Chicken Pox, Shingles - Past Surgical History HEENT Surgical History: Reports: None Cardiovascular Surgical History: Reports: None Respiratory Surgical History: Reports: None GI Surgical History: Reports: None Female Surgical History: Reports: Tubal Ligation Endocrine Surgical History: Reports: None Neurological Surgical History: Reports: None Musculoskeletal Surgical History: Reports: None Oncologic Surgical History: Reports: None Dermatological Surgical History: Reports: None Social & Family History - Family History Family Medical History: Noncontributory - Tobacco Use Smoking Status *Q: Never Smoker Years of Tobacco use: 15 Packs/Tins Daily: 1 Used Tobacco, but Quit: Yes Month Tobacco Last Used: 1-14 Second Hand Smoke Exposure: Yes - Caffeine Use Caffeine Use: Reports: Coffee, Energy Drinks, Soda, Tea - Recreational Drug Use Recreational Drug Use: Yes Drug Use in Last 12 Months: Yes Recreational Drug Type: Reports: Marijuana/Hashish Recreational Drug Use Frequency: Socially Recreational Drug Last Use: t-3 ED ROS GENERAL - Review of Systems Review Of Systems: ROS reveals no pertinent complaints other than HPI. ED EXAM, GI/ABD - Physical Exam Exam: See Below Exam Limited By: No Limitations General Appearance: Alert, WD/WN, Moderate Distress Eyes: Bilateral: Normal Appearance, EOMI Ears: Normal External Exam, Normal Canal, Hearing Grossly Normal, Normal TMs Nose: Normal Inspection, Normal Mucosa, No Blood Throat/Mouth: Normal Inspection, Normal Lips, Normal Teeth, Normal Gums, Normal Oropharynx, Normal Voice, No Airway Compromise Head: Atraumatic, Normocephalic Neck: Normal Inspection, Supple, Non-Tender, Full Range of Motion Respiratory/Chest: No Respiratory Distress, Lungs Clear, Normal Breath Sounds, No Accessory Muscle Use, Chest Non-Tender GI/Abdominal Exam: Normal Bowel Sounds, Soft, No Organomegaly, No Distention, No Abnormal Bruit, No Mass, Pelvis Stable, Tender (lower abdomen) (Female) Exam: Deferred Rectal (Female) Exam: Deferred Back Exam: Normal Inspection, Full Range of Motion, NT Extremities: Normal Inspection, Normal Range of Motion, Non-Tender, Normal Capillary Refill, No Pedal Edema Neurological: Alert, Oriented, CN II-XII Intact, Normal Cognition, Normal Gait, Normal Reflexes, No Motor/Sensory Deficits Psychiatric: Normal Affect, Normal Mood Skin Exam: Warm, Dry, Intact, Normal Color, No Rash Lymphatic: No Adenopathy Course - Vital Signs Last Recorded V/S: Last Vital Signs Temp 36.4 C 02/27/17 12:30 Pulse 111 H 02/27/17 12:30 Resp 18 02/27/17 12:30 BP 117/72 02/27/17 12:30 Pulse Ox 99 02/27/17 12:30 - Orders/Labs/Meds Orders: Active Orders 24 hr Category Date Time Status Abdomen Pelvis w Cont [CT] Urgent Exams 02/27/17 14:03 Taken Labs: Laboratory Tests 02/27/17 02/27/17 02/27/17 Range/Units 12:46 12:46 12:46 WBC (5.0-10.0) 10^3/uL RBC (4.2-5.4) 10^6/uL Hgb (12.0-16.0) g/dL Hct (37.0-47.0) % MCV (80-100) fL MCH (27.0-34.0) pg MCHC (33.0-35.0) g/dL Plt Count (150-450) 10^3/uL Neut % (Auto) (42.2-75.2) % Lymph % (Auto) (20.5-50.1) % [place] % (Auto) (2-8) % Eos % (Auto) (1.0-3.0) % Baso % (Auto) (0.0-1.0) % Sodium (135-145) mmol/L Potassium (3.6-5.0) mmol/L Chloride (101-111) mmol/L Carbon Dioxide (21.0-31.0) mmol/L Anion Gap BUN (7-18) mg/dL Creatinine (0.6-1.3) mg/dL Est Cr Clr Drug Dosing mL/min Estimated GFR (MDRD) BUN/Creatinine Ratio Glucose (74-105) mg/dL Calcium (8.4-10.2) mg/dl Magnesium (1.8-2.5) mg/dL Total Bilirubin (0.2-1.0) mg/dL AST (10-42) IU/L ALT (10-60) IU/L Alkaline Phosphatase (42-121) IU/L Ammonia (11-35) umol/L Total Protein (6.7-8.2) g/dl Albumin (3.2-5.5) g/dl Globulin Albumin/Globulin Ratio Amylase (28-100) U/L Lipase (22-51) U/L Urine Color Yellow (YELLOW) Urine Appearance Slightly cloudy (CLEAR) Urine pH 5.5 (5.0-9.0) Ur Specific [place] 1.020 (1.005-1.030) Urine Protein 100 H (NEGATIVE) Urine Glucose (UA) Negative (NEGATIVE) Urine Ketones 40 H (NEGATIVE) Urine Occult Blood Negative (NEGATIVE) Urine Nitrite Negative (NEGATIVE) Urine Bilirubin Small H (NEGATIVE) Urine Urobilinogen 0.2 (0.2-1.0) mg/dL Ur Leukocyte Esterase Trace H (NEGATIVE) Urine RBC 0-5 /HPF Urine WBC 5-10 H (0-5/HPF) /HPF Ur Epithelial Cells Moderate H /HPF Amorphous Sediment Many H (0/HPF) /HPF Urine Bacteria Few (0-FEW/HPF) /HPF Urine Mucus Many H /LPF Urine HCG, Qual Negative Urine Opiates Screen Negative (NEGATIVE) Ur Oxycodone Screen Negative (NEGATIVE) Urine Methadone Screen Negative (NEGATIVE) Acetaminophen Ur Barbiturates Screen Negative (NEGATIVE) U Tricyclic Antidepress Negative (NEGATIVE) Ur Phencyclidine Scrn Negative (NEGATIVE) Ur Amphetamine Screen Negative (NEGATIVE) U Methamphetamines Scrn Negative (NEGATIVE) Urine MDMA Screen Negative (NEGATIVE) U Benzodiazepines Scrn Negative (NEGATIVE) Urine Cocaine Screen Negative (NEGATIVE) U Marijuana (THC) Screen Positive H (NEGATIVE) 02/27/17 02/27/17 02/27/17 Range/Units 12:55 12:55 12:55 WBC 4.7 L (5.0-10.0) 10^3/uL RBC 5.71 H (4.2-5.4) 10^6/uL Hgb 13.9 D (12.0-16.0) g/dL Hct 43.3 (37.0-47.0) % MCV 75.8 L (80-100) fL MCH 24.3 L (27.0-34.0) pg MCHC 32.1 L (33.0-35.0) g/dL Plt Count 402 D (150-450) 10^3/uL Neut % (Auto) 63.6 (42.2-75.2) % Lymph % (Auto) 21.7 (20.5-50.1) % [place] % (Auto) 14.3 H (2-8) % Eos % (Auto) 0.2 L (1.0-3.0) % Baso % (Auto) 0.2 (0.0-1.0) % Sodium (135-145) mmol/L Potassium (3.6-5.0) mmol/L Chloride (101-111) mmol/L Carbon Dioxide (21.0-31.0) mmol/L Anion Gap BUN (7-18) mg/dL Creatinine (0.6-1.3) mg/dL Est Cr Clr Drug Dosing mL/min Estimated GFR (MDRD) BUN/Creatinine Ratio Glucose (74-105) mg/dL Calcium (8.4-10.2) mg/dl Magnesium 2.3 (1.8-2.5) mg/dL Total Bilirubin (0.2-1.0) mg/dL AST (10-42) IU/L ALT (10-60) IU/L Alkaline Phosphatase (42-121) IU/L Ammonia 20 (11-35) umol/L Total Protein (6.7-8.2) g/dl Albumin (3.2-5.5) g/dl Globulin Albumin/Globulin Ratio Amylase 92 (28-100) U/L Lipase 40 (22-51) U/L Urine Color (YELLOW) Urine Appearance (CLEAR) Urine pH (5.0-9.0) Ur Specific [place] (1.005-1.030) Urine Protein (NEGATIVE) Urine Glucose (UA) (NEGATIVE) Urine Ketones (NEGATIVE) Urine Occult Blood (NEGATIVE) Urine Nitrite (NEGATIVE) Urine Bilirubin (NEGATIVE) Urine Urobilinogen (0.2-1.0) mg/dL Ur Leukocyte Esterase (NEGATIVE) Urine RBC /HPF Urine WBC (0-5/HPF) /HPF Ur Epithelial Cells /HPF Amorphous Sediment (0/HPF) /HPF Urine Bacteria (0-FEW/HPF) /HPF Urine Mucus /LPF Urine HCG, Qual Urine Opiates Screen (NEGATIVE) Ur Oxycodone Screen (NEGATIVE) Urine Methadone Screen (NEGATIVE) Acetaminophen < 10 Ur Barbiturates Screen (NEGATIVE) U Tricyclic Antidepress (NEGATIVE) Ur Phencyclidine Scrn (NEGATIVE) Ur Amphetamine Screen (NEGATIVE) U Methamphetamines Scrn (NEGATIVE) Urine MDMA Screen (NEGATIVE) U Benzodiazepines Scrn (NEGATIVE) Urine Cocaine Screen (NEGATIVE) U Marijuana (THC) Screen (NEGATIVE) 02/27/17 Range/Units 12:55 WBC (5.0-10.0) 10^3/uL RBC (4.2-5.4) 10^6/uL Hgb (12.0-16.0) g/dL Hct (37.0-47.0) % MCV (80-100) fL MCH (27.0-34.0) pg MCHC (33.0-35.0) g/dL Plt Count (150-450) 10^3/uL Neut % (Auto) (42.2-75.2) % Lymph % (Auto) (20.5-50.1) % [place] % (Auto) (2-8) % Eos % (Auto) (1.0-3.0) % Baso % (Auto) (0.0-1.0) % Sodium 138 (135-145) mmol/L Potassium 3.1 L (3.6-5.0) mmol/L Chloride 97 L (101-111) mmol/L Carbon Dioxide 29.0 (21.0-31.0) mmol/L Anion Gap 15.1 BUN 18 (7-18) mg/dL Creatinine 0.9 (0.6-1.3) mg/dL Est Cr Clr Drug Dosing 67.03 mL/min Estimated GFR (MDRD) > 60 BUN/Creatinine Ratio 20.00 Glucose 131 H (74-105) mg/dL Calcium 9.5 (8.4-10.2) mg/dl Magnesium (1.8-2.5) mg/dL Total Bilirubin 0.7 (0.2-1.0) mg/dL AST 29 (10-42) IU/L ALT 31 (10-60) IU/L Alkaline Phosphatase 67 (42-121) IU/L Ammonia (11-35) umol/L Total Protein 9.1 H (6.7-8.2) g/dl Albumin 4.9 (3.2-5.5) g/dl Globulin 4.2 Albumin/Globulin Ratio 1.17 Amylase (28-100) U/L Lipase (22-51) U/L Urine Color (YELLOW) Urine Appearance (CLEAR) Urine pH (5.0-9.0) Ur Specific [place] (1.005-1.030) Urine Protein (NEGATIVE) Urine Glucose (UA) (NEGATIVE) Urine Ketones (NEGATIVE) Urine Occult Blood (NEGATIVE) Urine Nitrite (NEGATIVE) Urine Bilirubin (NEGATIVE) Urine Urobilinogen (0.2-1.0) mg/dL Ur Leukocyte Esterase (NEGATIVE) Urine RBC /HPF Urine WBC (0-5/HPF) /HPF Ur Epithelial Cells /HPF Amorphous Sediment (0/HPF) /HPF Urine Bacteria (0-FEW/HPF) /HPF Urine Mucus /LPF Urine HCG, Qual Urine Opiates Screen (NEGATIVE) Ur Oxycodone Screen (NEGATIVE) Urine Methadone Screen (NEGATIVE) Acetaminophen Ur Barbiturates Screen (NEGATIVE) U Tricyclic Antidepress (NEGATIVE) Ur Phencyclidine Scrn (NEGATIVE) Ur Amphetamine Screen (NEGATIVE) U Methamphetamines Scrn (NEGATIVE) Urine MDMA Screen (NEGATIVE) U Benzodiazepines Scrn (NEGATIVE) Urine Cocaine Screen (NEGATIVE) U Marijuana (THC) Screen (NEGATIVE) Meds: Medications Discontinued Medications Generic Name Dose Route Start Last Admin Trade Name Freq PRN Reason Stop Dose Admin Sodium Chloride 1,000 mls @ 999 mls/hr 02/27/17 13:51 02/27/17 14:15 Normal Saline IV 02/27/17 14:51 999 mls/hr .BOLUS ONE Administration Iopamidol 75 ml 02/27/17 14:03 02/27/17 14:59 Isovue-300 (61%) IVPUSH 02/27/17 14:04 75 ml ONETIME ONE Administration Ondansetron HCl 4 mg 02/27/17 13:51 02/27/17 14:16 Zofran IV 02/27/17 13:52 4 mg ONETIME ONE Administration Departure - Departure Time of Disposition: 15:34 Disposition: Home, Self-Care 01 Condition: Fair Clinical Impression: Gastroenteritis Adverse effect of cannabis Qualifiers: Encounter type: initial encounter Qualified Code(s): T40.7X5A - Adverse effect of cannabis (derivatives), initial encounter - Discharge Information Instructions: Viral Gastroenteritis, Adult, [id number], Cannabis Use Disorder Forms: ED Department Discharge Care Plan Goals: The patient was advised of the examination, lab and CT results during the visit. The patient was encouraged to avoid marijuana use. The patient was given a script for Zofran (4 mg) #20 to take 1 by mouth every 6 hours as needed for nausea. The patient was encouraged to stick to a BRAT diet (Bananas, Rice, Applesauce and [place]) over the next 48 hours with small frequent sips of fluid. If the patient has any additional symptoms or concern, the patient should follow -up with her primary care facility or return to the emergency department. - My Orders Last 24 Hours: My Active Orders 02/27/17 14:03 Abdomen Pelvis w Cont [CT] Urgent - Assessment/Plan Last 24 Hours: My Active Orders 02/27/17 14:03 Abdomen Pelvis w Cont [CT] Urgent
== END 2017-02-27 16:04 | disposition home or self-care (01) ==
LOC: DL.ED 12:21
DX: K52.9 Noninfective gastroenteritis and colitis, unspecified (principal); T40.7X5A Adverse effect of cannabis (derivatives), initial encounter
CPT/HCPCS: 36415; 74177; 80053; 80305; 81001; 81025; 82140; 82150; 83690; 83735; 85025; 87804; 96361; 96374; 99284; G0480; J2405; J7030; Q9967

== ENCOUNTER 2017-06-30 13:14 | Emergency (ER) | payer OTHER ==
[2017-06-30] MEDS ORDERED: Ondansetron 4 MG Tab.DIS PO ONE (13:15)
[2017-06-30] MEDS ORDERED: Sodium Chloride 0.9% 1,000 ML IV ONE (14:15)
[2017-06-30] MEDS ORDERED: Ondansetron 4 MG/2 ML SDV IV ONE (14:15)
[2017-06-30 14:31] LABS: ACETAMINOPHEN < 10
[2017-06-30 14:46] LABS: CHLORIDE,CL 104 mmol/L (101-111); SODIUM,NA 138 mmol/L (135-145)
[2017-06-30] MEDS ORDERED: Potassium Chloride 10 MEQ in Premix Bag 1 BAG IV ONE (14:53)
--- NOTE | 2017-06-30 17:39 | EDM.PDOC ---
Scribed by Winnie Garcia 06/30/17 1739 for Fermín Duval PA ED HPI GENERAL MEDICAL PROBLEM - General Chief Complaint: Gastrointestinal Problem Stated Complaint: vomiting sick [id number] Time Seen by Provider: 06/30/17 14:10 Source of Information: Reports: Patient, RN, RN Notes Reviewed History Limitations: Reports: No Limitations - History of Present Illness INITIAL COMMENTS - FREE TEXT/NARRATIVE: Patient presents to ER stating that on Saturday she started feeling sick with a headache and went home and vomited. She stopped drinking coffee and started drinking other liquids. She vomited 3 times today. She has painful urination today as well as diarrhea. Onset: Gradual Duration: Getting Worse Location: Reports: Abdomen Quality: Reports: Ache Severity: Moderate Improves with: Reports: None Worsens with: Reports: None Associated Symptoms: Reports: No Other Symptoms Abdomen Pain Score (Numeric/FACES): 10 - Related Data Allergies Allergy/AdvReac Type Severity Reaction Status Date / Time No Known Allergies Allergy Verified 02/21/17 12:28 Past Medical History HEENT History: Reports: None Cardiovascular History: Reports: None Respiratory History: Reports: None Gastrointestinal History: Reports: Other (See Below) Other Gastrointestinal History: "stomach infection" Genitourinary History: Reports: None 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 21 weeks along Musculoskeletal History: Reports: RA Neurological History: Reports: None Psychiatric History: Reports: Addiction, Depression Endocrine/Metabolic History: Reports: None Hematologic History: Reports: Anemia Other Immunologic History: RA Oncologic (Cancer) History: Reports: None Dermatologic History: Reports: Cellulitis, Eczema Other Dermatologic History: eczema - Infectious Disease History Infectious Disease History: Reports: Chicken Pox, Shingles - Past Surgical History HEENT Surgical History: Reports: None Cardiovascular Surgical History: Reports: None Respiratory Surgical History: Reports: None GI Surgical History: Reports: None Female Surgical History: Reports: Tubal Ligation Endocrine Surgical History: Reports: None Neurological Surgical History: Reports: None Musculoskeletal Surgical History: Reports: None Oncologic Surgical History: Reports: None Dermatological Surgical History: Reports: None Social & Family History - Family History Family Medical History: Noncontributory - Tobacco Use Smoking Status *Q: Former Smoker Used Tobacco, but Quit: Yes Month/Year Tobacco Last Used: 06/2013 - Caffeine Use Caffeine Use: Reports: Coffee, Energy Drinks, Soda, Tea - Recreational Drug Use Recreational Drug Use: No ED ROS GENERAL - Review of Systems Review Of Systems: ROS reveals no pertinent complaints other than HPI. ED EXAM, GI/ABD - Physical Exam Exam: See Below Exam Limited By: No Limitations General Appearance: Other (weak and pale.) Eyes: Bilateral: Normal Appearance Ears: Normal External Exam, Normal Canal, Hearing Grossly Normal, Normal TMs Nose: Normal Inspection, Normal Mucosa, No Blood Throat/Mouth: Normal Inspection, Normal Lips, Normal Teeth, Normal Gums, Normal Oropharynx, Normal Voice, No Airway Compromise Head: Atraumatic, Normocephalic Neck: Normal Inspection, Supple, Non-Tender, Full Range of Motion Respiratory/Chest: No Respiratory Distress, Lungs Clear, Normal Breath Sounds, No Accessory Muscle Use, Chest Non-Tender Cardiovascular: Normal Peripheral Pulses, Regular Rate, Rhythm, No Edema, No Gallop, No JVD, No Murmur, No Rub GI/Abdominal Exam: Other (diffuse tenderness) (Female) Exam: Deferred Rectal (Female) Exam: Deferred Back Exam: Normal Inspection, Full Range of Motion, NT Extremities: Normal Inspection, Normal Range of Motion, Non-Tender, Normal Capillary Refill, No Pedal Edema Neurological: Alert, Oriented, CN II-XII Intact, Normal Cognition, Normal Gait, Normal Reflexes, No Motor/Sensory Deficits Psychiatric: Normal Affect, Normal Mood Skin Exam: Warm, Dry, Intact, Normal Color, No Rash Lymphatic: No Adenopathy Course - Vital Signs Last Recorded V/S: Last Vital Signs Temp 37.9 C 06/30/17 15:24 Pulse 71 06/30/17 16:20 Resp 16 06/30/17 16:20 BP 140/86 06/30/17 16:20 Pulse Ox 100 06/30/17 16:20 - Orders/Labs/Meds Orders: Active Orders 24 hr Category Date Time Status CULTURE BLOOD [BC] Stat Lab 06/30/17 14:00 Received CULTURE BLOOD [BC] Stat Lab 06/30/17 14:05 Received DRUG SCREEN URINE BIORAD [URCHEM] Stat Lab 06/30/17 16:51 Ordered UA W/MICROSCOPIC [URIN] Stat Lab 06/30/17 16:51 Ordered Blood Culture x2 Reflex Set [OM.PC] Stat Oth 06/30/17 13:53 Ordered Labs: Laboratory Tests 06/30/17 06/30/17 06/30/17 Range/Units 14:00 14:00 14:00 WBC (5.0-10.0) 10^3/uL RBC (4.2-5.4) 10^6/uL Hgb (12.0-16.0) g/dL Hct (37.0-47.0) % MCV (80-100) fL MCH (27.0-34.0) pg MCHC (33.0-35.0) g/dL Plt Count (150-450) 10^3/uL Neut % (Auto) (42.2-75.2) % Lymph % (Auto) (20.5-50.1) % Kern % (Auto) (2-8) % Eos % (Auto) (1.0-3.0) % Baso % (Auto) (0.0-1.0) % Sodium (135-145) mmol/L Potassium (3.6-5.0) mmol/L Chloride (101-111) mmol/L Carbon Dioxide (21.0-31.0) mmol/L Anion Gap BUN (7-18) mg/dL Creatinine (0.6-1.3) mg/dL Est Cr Clr Drug Dosing mL/min Estimated GFR (MDRD) BUN/Creatinine Ratio Glucose (74-105) mg/dL Lactic Acid 1.0 (0.5-2.2) mmol/L Calcium (8.4-10.2) mg/dl Total Bilirubin (0.2-1.0) mg/dL AST (10-42) IU/L ALT (10-60) IU/L Alkaline Phosphatase (42-121) IU/L Ammonia 16 (11-35) umol/L Total Protein (6.7-8.2) g/dl Albumin (3.2-5.5) g/dl Globulin Albumin/Globulin Ratio Amylase 103 H (28-100) U/L Lipase 35 (22-51) U/L Urine Color (YELLOW) Urine Appearance (CLEAR) Urine pH (5.0-9.0) Ur Specific [place] (1.005-1.030) Urine Protein (NEGATIVE) Urine Glucose (UA) (NEGATIVE) Urine Ketones (NEGATIVE) Urine Occult Blood (NEGATIVE) Urine Nitrite (NEGATIVE) Urine Bilirubin (NEGATIVE) Urine Urobilinogen (0.2-1.0) mg/dL Ur Leukocyte Esterase (NEGATIVE) Urine RBC /HPF Urine WBC (0-5/HPF) /HPF Ur Epithelial Cells /HPF Urine Bacteria (0-FEW/HPF) /HPF Urine Mucus /LPF Salicylates < 4 Urine Opiates Screen (NEGATIVE) Ur Oxycodone Screen (NEGATIVE) Urine Methadone Screen (NEGATIVE) Acetaminophen < 10 Ur Barbiturates Screen (NEGATIVE) U Tricyclic Antidepress (NEGATIVE) Ur Phencyclidine Scrn (NEGATIVE) Ur Amphetamine Screen (NEGATIVE) U Methamphetamines Scrn (NEGATIVE) Urine MDMA Screen (NEGATIVE) U Benzodiazepines Scrn (NEGATIVE) Urine Cocaine Screen (NEGATIVE) U Marijuana (THC) Screen (NEGATIVE) 06/30/17 06/30/17 06/30/17 Range/Units 14:00 14:00 16:51 WBC 6.0 (5.0-10.0) 10^3/uL RBC 4.83 (4.2-5.4) 10^6/uL Hgb 10.5 L D (12.0-16.0) g/dL Hct 33.6 L (37.0-47.0) % MCV 69.6 L D (80-100) fL MCH 21.7 L (27.0-34.0) pg MCHC 31.3 L (33.0-35.0) g/dL Plt Count 374 (150-450) 10^3/uL Neut % (Auto) 72.2 (42.2-75.2) % Lymph % (Auto) 18.1 L (20.5-50.1) % Kern % (Auto) 9.7 H (2-8) % Eos % (Auto) 0.0 L (1.0-3.0) % Baso % (Auto) 0.0 (0.0-1.0) % Sodium 138 (135-145) mmol/L Potassium 2.9 L (3.6-5.0) mmol/L Chloride 104 (101-111) mmol/L Carbon Dioxide 26.0 (21.0-31.0) mmol/L Anion Gap 10.9 BUN 14 (7-18) mg/dL Creatinine 0.4 L (0.6-1.3) mg/dL Est Cr Clr Drug Dosing 150.82 mL/min Estimated GFR (MDRD) > 60 BUN/Creatinine Ratio 35.00 Glucose 103 (74-105) mg/dL Lactic Acid (0.5-2.2) mmol/L Calcium 9.0 (8.4-10.2) mg/dl Total Bilirubin 0.3 (0.2-1.0) mg/dL AST 21 (10-42) IU/L ALT 14 (10-60) IU/L Alkaline Phosphatase 56 (42-121) IU/L Ammonia (11-35) umol/L Total Protein 8.3 H (6.7-8.2) g/dl Albumin 4.2 (3.2-5.5) g/dl Globulin 4.1 Albumin/Globulin Ratio 1.02 Amylase (28-100) U/L Lipase (22-51) U/L Urine Color Yellow (YELLOW) Urine Appearance Slightly cloudy (CLEAR) Urine pH 6.0 (5.0-9.0) Ur Specific [place] 1.025 (1.005-1.030) Urine Protein 100 H (NEGATIVE) Urine Glucose (UA) Negative (NEGATIVE) Urine Ketones 80 H (NEGATIVE) Urine Occult Blood Negative (NEGATIVE) Urine Nitrite Negative (NEGATIVE) Urine Bilirubin Negative (NEGATIVE) Urine Urobilinogen 0.2 (0.2-1.0) mg/dL Ur Leukocyte Esterase Negative (NEGATIVE) Urine RBC 0-5 /HPF Urine WBC 5-10 H (0-5/HPF) /HPF Ur Epithelial Cells Many H /HPF Urine Bacteria Many H (0-FEW/HPF) /HPF Urine Mucus Many H /LPF Salicylates Urine Opiates Screen (NEGATIVE) Ur Oxycodone Screen (NEGATIVE) Urine Methadone Screen (NEGATIVE) Acetaminophen Ur Barbiturates Screen (NEGATIVE) U Tricyclic Antidepress (NEGATIVE) Ur Phencyclidine Scrn (NEGATIVE) Ur Amphetamine Screen (NEGATIVE) U Methamphetamines Scrn (NEGATIVE) Urine MDMA Screen (NEGATIVE) U Benzodiazepines Scrn (NEGATIVE) Urine Cocaine Screen (NEGATIVE) U Marijuana (THC) Screen (NEGATIVE) 06/30/17 Range/Units 16:51 WBC (5.0-10.0) 10^3/uL RBC (4.2-5.4) 10^6/uL Hgb (12.0-16.0) g/dL Hct (37.0-47.0) % MCV (80-100) fL MCH (27.0-34.0) pg MCHC (33.0-35.0) g/dL Plt Count (150-450) 10^3/uL Neut % (Auto) (42.2-75.2) % Lymph % (Auto) (20.5-50.1) % Kern % (Auto) (2-8) % Eos % (Auto) (1.0-3.0) % Baso % (Auto) (0.0-1.0) % Sodium (135-145) mmol/L Potassium (3.6-5.0) mmol/L Chloride (101-111) mmol/L Carbon Dioxide (21.0-31.0) mmol/L Anion Gap BUN (7-18) mg/dL Creatinine (0.6-1.3) mg/dL Est Cr Clr Drug Dosing mL/min Estimated GFR (MDRD) BUN/Creatinine Ratio Glucose (74-105) mg/dL Lactic Acid (0.5-2.2) mmol/L Calcium (8.4-10.2) mg/dl Total Bilirubin (0.2-1.0) mg/dL AST (10-42) IU/L ALT (10-60) IU/L Alkaline Phosphatase (42-121) IU/L Ammonia (11-35) umol/L Total Protein (6.7-8.2) g/dl Albumin (3.2-5.5) g/dl Globulin Albumin/Globulin Ratio Amylase (28-100) U/L Lipase (22-51) U/L Urine Color (YELLOW) Urine Appearance (CLEAR) Urine pH (5.0-9.0) Ur Specific [place] (1.005-1.030) Urine Protein (NEGATIVE) Urine Glucose (UA) (NEGATIVE) Urine Ketones (NEGATIVE) Urine Occult Blood (NEGATIVE) Urine Nitrite (NEGATIVE) Urine Bilirubin (NEGATIVE) Urine Urobilinogen (0.2-1.0) mg/dL Ur Leukocyte Esterase (NEGATIVE) Urine RBC /HPF Urine WBC (0-5/HPF) /HPF Ur Epithelial Cells /HPF Urine Bacteria (0-FEW/HPF) /HPF Urine Mucus /LPF Salicylates Urine Opiates Screen Negative (NEGATIVE) Ur Oxycodone Screen Negative (NEGATIVE) Urine Methadone Screen Negative (NEGATIVE) Acetaminophen Ur Barbiturates Screen Negative (NEGATIVE) U Tricyclic Antidepress Negative (NEGATIVE) Ur Phencyclidine Scrn Negative (NEGATIVE) Ur Amphetamine Screen Negative (NEGATIVE) U Methamphetamines Scrn Negative (NEGATIVE) Urine MDMA Screen Negative (NEGATIVE) U Benzodiazepines Scrn Negative (NEGATIVE) Urine Cocaine Screen Negative (NEGATIVE) U Marijuana (THC) Screen Positive H (NEGATIVE) Meds: Medications Discontinued Medications Generic Name Dose Route Start Last Admin Trade Name Freq PRN Reason Stop Dose Admin Sodium Chloride 1,000 mls @ 999 mls/hr 06/30/17 14:15 06/30/17 15:02 Normal Saline IV 06/30/17 15:15 999 mls/hr .BOLUS ONE Administration Potassium Chloride 10 meq/ 100 mls @ 100 mls/hr 06/30/17 14:53 06/30/17 15:07 Premix IV 06/30/17 15:52 100 mls/hr ONETIME ONE Administration Ondansetron HCl 4 mg 06/30/17 14:15 06/30/17 15:05 Zofran IV 06/30/17 14:16 4 mg ONETIME ONE Administration Departure - Departure Time of Disposition: 17:35 Disposition: Home, Self-Care 01 Condition: Fair Clinical Impression: Gastroenteritis, Hypokalemia Nausea & vomiting Qualifiers: Vomiting type: unspecified Vomiting Intractability: intractable Qualified Code( s): R11.2 - Nausea with vomiting, unspecified - Discharge Information Instructions: Viral Gastroenteritis, Adult, [id number], Dehydration, Adult, [id number], Nausea and Vomiting, Adult, [id number], Potassium Content of Foods Referrals: PCP,None [Primary Care Provider] - Forms: ED Department Discharge Care Plan Goals: The patient was advised of the examination and lab results during the visit. The patient was given IV fluids for dehydration, IV Zofran for nausea and IV potassium for low potassium levels. The patient was discharged with Zofran ODT ( 4 mg) #3 to take 1 by mouth every 6 hours as well as a script for Zofran (4 mg) #20 to take 1 by mouth every 6 hours as needed. The patient was encouraged to stick to a BRAT diet (bananas, rice, applesauce and toast) with small frequent sips of fluid over the next 48 hours. If the patient has any additional symptoms or concerns, the patient should follow-up with her primary care facility or return to the emergency department. - My Orders Last 24 Hours: My Active Orders 06/30/17 13:53 Blood Culture x2 Reflex Set [OM.PC] Stat 06/30/17 14:00 CULTURE BLOOD [BC] Stat 06/30/17 14:05 CULTURE BLOOD [BC] Stat 06/30/17 16:51 DRUG SCREEN URINE BIORAD [URCHEM] Stat UA W/MICROSCOPIC [URIN] Stat - Assessment/Plan Last 24 Hours: My Active Orders 06/30/17 13:53 Blood Culture x2 Reflex Set [OM.PC] Stat 06/30/17 14:00 CULTURE BLOOD [BC] Stat 06/30/17 14:05 CULTURE BLOOD [BC] Stat 06/30/17 16:51 DRUG SCREEN URINE BIORAD [URCHEM] Stat UA W/MICROSCOPIC [URIN] Stat I have read and agree with the documentation that has been completed regarding this visit. By signing this record, I attest that the documentation was completed in my physical presence and is an accurate record of the encounter.
[2017-06-30] MEDS ORDERED: Ondansetron 4 MG Tab.DIS ONE (17:42)
[2017-06-30 17:57] VITALS: BP 122/70
== END 2017-06-30 17:51 | disposition home or self-care (01) ==
LOC: DL.ED 13:14
DX: K52.9 Noninfective gastroenteritis and colitis, unspecified (principal); E87.6 Hypokalemia; Z87.891 Personal history of nicotine dependence
CPT/HCPCS: 36415; 80053; 80305; 81001; 82140; 82150; 83605; 83690; 85025; 87040; 96361; 96365; 96375; 99284; A9270; G0480; J2405; J3480; J7030

== ENCOUNTER 2017-07-01 17:43 | Observation (INO) | payer MEDICAID, OTHER ==
[2017-07-01] MEDS ORDERED: Sodium Chloride 0.9% 1,000 ML IV ONE ×2 (19:00→20:57)
[2017-07-01] MEDS ORDERED: Metoclopramide 10 MG/2 ML SDV IVPUSH ONE (19:00)
[2017-07-01 20:14] LABS: CHLORIDE,CL 105 mmol/L (101-111); SODIUM,NA 140 mmol/L (135-145)
[2017-07-01] MEDS ORDERED: Potassium Chloride 10 MEQ in Premix Bag 1 BAG IV ONE (20:30)
[2017-07-01] MEDS ORDERED: Morphine 2 MG/ML Syringe IVPUSH PRN (22:28)
[2017-07-01] MEDS ORDERED: Ondansetron 4 MG/2 ML SDV IVPUSH PRN (22:28)
[2017-07-01] MEDS ORDERED: Ondansetron 4 MG Tab.DIS PO PRN (22:28)
[2017-07-01] MEDS ORDERED: Zolpidem 5 MG Tab PO PRN (22:28)
[2017-07-01] MEDS ORDERED: NS + KCl 20mEq/L 1,000 ML IV SCH (22:30)
--- NOTE | 2017-07-01 22:39 | PCM.HP ---
H&P History of Present Illness - General Date of Service: 07/01/17 Admit Problem/Dx: Admission Diagnosis/Problem Admission Diagnosis/Problem Abdominal pain Source of Information: Patient - History of Present Illness Initial Comments - Free Text/Narative: The patient is a 37-year-old lady with no chronic medical history. The patient developed abdominal pain, nausea, vomiting, diarrhea last Saturday. There is no associated fever. No vomiting is clear, diarrhea was watery clear. No blood. The abdominal pain is crampy, lower abdomen. The pain improved after using marijuana. The patient was seen in the emergency room on 30 June was felt as a viral gastroenteritis. She was also noted severe hypokalemia. She was given nausea medication. She came back to the emergency room with continued nausea, abdominal pain. 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 21 weeks along Musculoskeletal History: Reports: RA Neurological History: Reports: None Psychiatric History: Reports: Addiction, Depression Endocrine/Metabolic History: Reports: None Hematologic History: Reports: Anemia Other Immunologic History: RA Oncologic (Cancer) History: Reports: None Dermatologic History: Reports: Cellulitis, Eczema Other Dermatologic History: eczema - Infectious Disease History Infectious Disease History: Reports: Chicken Pox, Shingles - Past Surgical History HEENT Surgical History: Reports: None Cardiovascular Surgical History: Reports: None Respiratory Surgical History: Reports: None GI Surgical History: Reports: None Female Surgical History: Reports: Section, Tubal Ligation Endocrine Surgical History: Reports: None Neurological Surgical History: Reports: None Musculoskeletal Surgical History: Reports: None Oncologic Surgical History: Reports: None Dermatological Surgical History: Reports: None Social & Family History - Family History Family Medical History: Noncontributory - Tobacco Use Smoking Status *Q: Never Smoker - Caffeine Use Caffeine Use: Reports: Coffee, Energy Drinks, Soda, Tea - Recreational Drug Use Recreational Drug Use: No H&P Review of Systems - Review of Systems: Review Of Systems: See Below General: Reports: Malaise, Decreased Appetite. Denies: Fever Pulmonary: Denies: Shortness of Breath Cardiovascular: Denies: Chest Pain Gastrointestinal: Reports: Abdominal Pain, Diarrhea, Nausea, Vomiting. Denies: Black Stool, Bloody Stool, Hematochezia, Melena Genitourinary: Denies: Dysuria, Frequency, Burning Musculoskeletal: Denies: Neck Pain Skin: Reports: No Symptoms Psychiatric: Reports: No Symptoms Neurological: Reports: No Symptoms Exam - Exam Exam: See Below - Vital Signs Vital Signs: Last Vital Signs Temp 37.1 C 07/01/17 21:43 Pulse 72 07/01/17 21:43 Resp 18 07/01/17 21:43 BP 145/82 H 07/01/17 21:43 Pulse Ox 100 07/01/17 21:43 Orthostatic Blood Pressure [ 138/81 Standing] Orthostatic Blood Pressure [ 141/82 Sitting] Orthostatic Blood Pressure [ 129/61 Supine] Weight: 58.967 kg - Exam General: Alert, Oriented HEENT: EOMI Neck: Supple Lungs: Clear to Auscultation, Normal Respiratory Effort Cardiovascular: Regular Rate, Regular Rhythm GI/Abdominal Exam: Normal Bowel Sounds, Soft, No Organomegaly, No Distention, No Abnormal Bruit, No Mass, Tender (Diffusely tender). No: Distended, Rigid, Rebound Extremities: No Pedal Edema Skin: Warm, Dry Neuro Extensive - Mental Status: Alert, Oriented x3, Normal Mood/Affect - Patient Data Lab Results Last 24 hrs: Laboratory Results - last 24 hr 07/01/17 07/01/17 07/01/17 Range/Units 19:43 19:43 19:43 WBC 5.3 (5.0-10.0) 10^3/uL RBC 5.12 (4.2-5.4) 10^6/uL Hgb 11.1 L (12.0-16.0) g/dL Hct 35.6 L (37.0-47.0) % MCV 69.5 L (80-100) fL MCH 21.7 L (27.0-34.0) pg MCHC 31.2 L (33.0-35.0) g/dL Plt Count 379 (150-450) 10^3/uL Neut % (Auto) 55.4 (42.2-75.2) % Lymph % (Auto) 31.5 (20.5-50.1) % [place] % (Auto) 12.9 H (2-8) % Eos % (Auto) 0.0 L (1.0-3.0) % Baso % (Auto) 0.2 (0.0-1.0) % Sodium 140 (135-145) mmol/L Potassium 2.9 L (3.6-5.0) mmol/L Chloride 105 (101-111) mmol/L Carbon Dioxide 26.0 (21.0-31.0) mmol/L Anion Gap 11.9 BUN 13 (7-18) mg/dL Creatinine 0.5 L (0.6-1.3) mg/dL Est Cr Clr Drug Dosing 120.66 mL/min Estimated GFR (MDRD) > 60 BUN/Creatinine Ratio 26.00 Glucose 103 (74-105) mg/dL Lactic Acid 1.0 (0.5-2.2) mmol/L Calcium 9.1 (8.4-10.2) mg/dl Total Bilirubin 0.4 (0.2-1.0) mg/dL AST 20 (10-42) IU/L ALT 15 (10-60) IU/L Alkaline Phosphatase 61 (42-121) IU/L Total Protein 8.3 H (6.7-8.2) g/dl Albumin 4.2 (3.2-5.5) g/dl Globulin 4.1 Albumin/Globulin Ratio 1.02 Amylase 103 H (28-100) U/L Lipase 36 (22-51) U/L Result Diagrams: 07/01/17 19:43 07/01/17 19:43 - Problem List (1) Nausea & vomiting SNOMED Code(s): 98265303 ICD Code: R11.2 - NAUSEA WITH VOMITING, UNSPECIFIED Status: Acute Current Visit: Yes (2) Abdominal pain SNOMED Code(s): 73890209 ICD Code: R10.9 - UNSPECIFIED ABDOMINAL PAIN Status: Acute Current Visit : Yes (3) Hypokalemia SNOMED Code(s): 39084798 ICD Code: E87.6 - HYPOKALEMIA Status: Acute Current Visit: No Problem List Initiated/Reviewed/Updated: Yes Orders Last 24hrs: Active Orders 24 hr Category Date Time Status Patient Status [ADT] Routine ADT 07/01/17 22:28 Active EKG 12 Lead [EKG Documentation Completion] [RC] URGENT Care 07/01/17 20:31 Active Orthostatic Vital Signs [RC] ASDIRECTED Care 07/01/17 20:30 Active Oxygen Therapy [RC] PRN Care 07/01/17 22:28 Active Up With Assistance [RC] ASDIRECTED Care 07/01/17 22:28 Active VTE/DVT Education [RC] PER UNIT ROUTINE Care 07/01/17 22:28 Active Vital Signs [RC] Q4H Care 07/01/17 22:28 Active Clear Liquid Diet [DIET] Diet 07/01/17 Breakfast Active BASIC METABOLIC PANEL,BMP [CHEM] AM Lab 07/02/17 05:15 Ordered CBC WITH AUTO DIFF [HEME] AM Lab 07/02/17 05:15 Ordered HCG QUALITATIVE,URINE [URCHEM] Routine Lab 07/01/17 22:31 Ordered MAGNESIUM [CHEM] AM Lab 07/02/17 05:11 Ordered PHOSPHORUS [CHEM] AM Lab 07/02/17 05:11 Ordered UA W/MICROSCOPIC [URIN] Stat Lab 07/01/17 19:01 Ordered Acetaminophen [Tylenol] Med 07/01/17 22:28 Ordered 650 mg PO Q4H PRN Heparin Sodium Med 07/02/17 06:00 Ordered 5,000 units SUBCUT Q8HR Morphine Med 07/01/17 22:28 Ordered 2 mg IVPUSH Q2H PRN NS + KCl 20mEq/L [Normal Saline with 20 mEq KCl] 1,000 Med 07/01/17 22:30 Ordered ml IV ASDIRECTED Ondansetron [Zofran ODT] Med 07/01/17 22:28 Ordered 4 mg PO Q6H PRN Ondansetron [Zofran] Med 07/01/17 22:28 Ordered 4 mg IVPUSH Q6H PRN Pantoprazole [ProTONIX IV] Med 07/01/17 23:00 Ordered 40 mg IVPUSH Q12HR Potassium Chloride [KCl 10 MEQ in Water 100 ML] 10 meq Med 07/01/17 22:30 Ordered Premix Bag 1 bag IV Q2H Zolpidem [Ambien] Med 07/01/17 22:28 Ordered 5 mg PO BEDTIME PRN oxyCODONE Med 07/01/17 22:28 Ordered 5 mg PO Q4H PRN Antiembolic Hose [OM.PC] Per Unit Routine Oth 07/01/17 22:29 Ordered Resuscitation Status Routine Resus Stat 07/01/17 22:28 Ordered Medication Orders Acetaminophen (Tylenol) 650 mg PO Q4H PRN PRN Reason: Pain (Mild 1-3)/fever Heparin Sodium (Porcine) (Heparin Sodium) 5,000 units SUBCUT Q8HR [facility] Potassium Chloride 10 meq/ (Premix) 100 mls @ 50 mls/hr IV Q2H LINA Stop: 07/02/17 08:29 Potassium Chloride/Sodium Chloride (Normal Saline With 20 Meq Kcl) 1,000 mls @ 50 mls/hr IV ASDIRECTED [facility] Morphine Sulfate (Morphine) 2 mg IVPUSH Q2H PRN PRN Reason: Pain (severe 7-10) Ondansetron HCl (Zofran Odt) 4 mg PO Q6H PRN PRN Reason: nausea, able to take PO Ondansetron HCl (Zofran) 4 mg IVPUSH Q6H PRN PRN Reason: Nausea/Vomiting Oxycodone HCl (Oxycodone) 5 mg PO Q4H PRN PRN Reason: Pain (moderate 4-6) Pantoprazole Sodium (Protonix Iv) 40 mg IVPUSH Q12HR [facility] Zolpidem Tartrate (Ambien) 5 mg PO BEDTIME PRN PRN Reason: Sleep Assessment/Plan Comment:: 37-year-old lady who presented with a few days history of abdominal pain, nausea , vomiting, diarrhea. Noted to have severe hypokalemia. #1 abdominal discomfort, nausea vomiting. The differential diagnosis is wide. The patient's abdominal exam is benign, no apparent surgical abdomen. Laboratory studies are also quite unremarkable. This might represent gastroenteritis, ulcer. For now treat empirically. Will use oxycodone, morphine as needed for pain control. Rehydrate. Electrolytes supplement. Check urine . If no improvement in 12 hours with the treatment consider further imaging. #2 nausea, vomiting Treat empirically with Zofran, Give Protonix #3 severe hypokalemia This is likely due to nausea, vomiting, diarrhea, GI losses. Give IV potassium, hydration. #4 DVT prophylaxis with subcutaneous heparin
[2017-07-01] MEDS: oxyCODONE 5 MG Tab PO PRN (23:02)
[2017-07-01] MEDS: Pantoprazole 40 MG Vial IVPUSH SCH (23:02)
[2017-07-01] MEDS: Potassium Chloride 10 MEQ in Premix Bag 1 BAG IV SCH (23:05)
[2017-07-02] MEDS ORDERED: Potassium Chloride 100 ML ONE (00:56)
[2017-07-02] MEDS: Potassium Chloride 10 MEQ in Premix Bag 1 BAG IV SCH ×3 (00:57→07:38)
[2017-07-02] MEDS: Heparin Sodium 5,000 Units/ML Vial SUBCUT SCH ×2 (05:55→13:24)
[2017-07-02] MEDS: oxyCODONE 5 MG Tab PO PRN ×2 (06:14→10:19)
[2017-07-02] MEDS: Acetaminophen 325 MG Tab PO PRN ×2 (06:19→10:18)
[2017-07-02 07:00] LABS: CHLORIDE,CL 110 mmol/L (101-111); SODIUM,NA 139 mmol/L (135-145)
[2017-07-02] MEDS: Pantoprazole 40 MG Vial IVPUSH SCH (08:53)
--- NOTE | 2017-07-02 09:37 | PCM.DCSUM1 ---
Discharge Summary - Hospital Course Free Text/Narrative:: 37-year-old lady who presented with a few days history of abdominal pain, nausea , vomiting, diarrhea. Noted to have severe hypokalemia. #1 abdominal discomfort, nausea vomiting. The differential diagnosis is wide. Symptoms started after eating hamburger and hot dog. According to the patient other family members had similar symptoms after same meal. The patient's abdominal exam is benign, no apparent surgical abdomen. Laboratory studies are also quite unremarkable. This might represent gastroenteritis, ulcer. Overnight that was treated with IV fluids, electrolyte replacement, pain medication and Zofran. By the morning of her symptoms much improved. Abdominal pain resolved. Able to tolerate food. She has already called and arranged appointment with her primary care physician for tomorrow #2 severe hypokalemia This is likely due to nausea, vomiting, diarrhea, GI losses. Resolved with IV potassium, hydration. - Discharge Data Discharge Date: 07/02/17 Discharge Disposition: Home, Self-Care 01 Condition: Fair - Discharge Diagnosis/Problem(s) (1) Nausea & vomiting SNOMED Code(s): 49262463 ICD Code: R11.2 - NAUSEA WITH VOMITING, UNSPECIFIED Status: Acute Current Visit: Yes (2) Abdominal pain SNOMED Code(s): 45730680 ICD Code: R10.9 - UNSPECIFIED ABDOMINAL PAIN Status: Acute Current Visit : Yes (3) Hypokalemia SNOMED Code(s): 01236072 ICD Code: E87.6 - HYPOKALEMIA Status: Acute Current Visit: No - Discharge Plan Prescriptions/Med Rec: Pantoprazole Sodium 40 mg PO DAILY #10 tablet.dr Georges Medications: Home Meds Ondansetron [Zofran ODT] 4 mg PO Q6H PRN 07/01/17 [History] Pantoprazole Sodium 40 mg PO DAILY #10 tablet. 07/02/17 [Rx] Forms: ED Department Discharge - General Info Date of Service: 07/02/17 Functional Status: Reports: Pain Controlled - Review of Systems General: Denies: Fever, Weakness Pulmonary: Denies: Shortness of Breath Cardiovascular: Denies: Chest Pain Gastrointestinal: Denies: Abdominal Pain, Nausea, Vomiting Neurological: Denies: Confusion - Patient Data Vitals - Most Recent: Last Vital Signs Temp 37.1 C 07/02/17 07:44 Pulse 63 07/02/17 07:44 Resp 20 07/02/17 07:44 BP 142/76 H 07/02/17 07:44 Pulse Ox 100 07/02/17 07:44 Orthostatic Blood Pressure [ 138/81 Standing] Orthostatic Blood Pressure [ 141/82 Sitting] Orthostatic Blood Pressure [ 129/61 Supine] Weight - Most Recent: 58.967 kg I&O - Last 24 hours: Intake & Output 07/01/17 07/02/17 07/02/17 22:59 06:59 14:59 Intake Total 250 Output Total 400 200 Balance -400 50 Lab Results - Last 24 hrs: Laboratory Results - last 24 hr 07/01/17 07/01/17 07/01/17 Range/Units 19:43 19:43 19:43 WBC 5.3 (5.0-10.0) 10^3/uL RBC 5.12 (4.2-5.4) 10^6/uL Hgb 11.1 L (12.0-16.0) g/dL Hct 35.6 L (37.0-47.0) % MCV 69.5 L (80-100) fL MCH 21.7 L (27.0-34.0) pg MCHC 31.2 L (33.0-35.0) g/dL Plt Count 379 (150-450) 10^3/uL Neut % (Auto) 55.4 (42.2-75.2) % Lymph % (Auto) 31.5 (20.5-50.1) % [place] % (Auto) 12.9 H (2-8) % Eos % (Auto) 0.0 L (1.0-3.0) % Baso % (Auto) 0.2 (0.0-1.0) % Sodium 140 (135-145) mmol/L Potassium 2.9 L (3.6-5.0) mmol/L Chloride 105 (101-111) mmol/L Carbon Dioxide 26.0 (21.0-31.0) mmol/L Anion Gap 11.9 BUN 13 (7-18) mg/dL Creatinine 0.5 L (0.6-1.3) mg/dL Est Cr Clr Drug Dosing 120.66 mL/min Estimated GFR (MDRD) > 60 BUN/Creatinine Ratio 26.00 Glucose 103 (74-105) mg/dL Lactic Acid 1.0 (0.5-2.2) mmol/L Calcium 9.1 (8.4-10.2) mg/dl Phosphorus (2.5-4.6) mg/dL Magnesium (1.8-2.5) mg/dL Total Bilirubin 0.4 (0.2-1.0) mg/dL AST 20 (10-42) IU/L ALT 15 (10-60) IU/L Alkaline Phosphatase 61 (42-121) IU/L Total Protein 8.3 H (6.7-8.2) g/dl Albumin 4.2 (3.2-5.5) g/dl Globulin 4.1 Albumin/Globulin Ratio 1.02 Amylase 103 H (28-100) U/L Lipase 36 (22-51) U/L Urine Color (YELLOW) Urine Appearance (CLEAR) Urine pH (5.0-9.0) Ur Specific [place] (1.005-1.030) Urine Protein (NEGATIVE) Urine Glucose (UA) (NEGATIVE) Urine Ketones (NEGATIVE) Urine Occult Blood (NEGATIVE) Urine Nitrite (NEGATIVE) Urine Bilirubin (NEGATIVE) Urine Urobilinogen (0.2-1.0) mg/dL Ur Leukocyte Esterase (NEGATIVE) Urine RBC /HPF Urine WBC (0-5/HPF) /HPF Ur Epithelial Cells /HPF Urine Bacteria (0-FEW/HPF) /HPF Urine Mucus /LPF Urine HCG, Qual 07/01/17 07/01/17 07/02/17 Range/Units 22:24 22:24 06:08 WBC (5.0-10.0) 10^3/uL RBC (4.2-5.4) 10^6/uL Hgb (12.0-16.0) g/dL Hct (37.0-47.0) % MCV (80-100) fL MCH (27.0-34.0) pg MCHC (33.0-35.0) g/dL Plt Count (150-450) 10^3/uL Neut % (Auto) (42.2-75.2) % Lymph % (Auto) (20.5-50.1) % [place] % (Auto) (2-8) % Eos % (Auto) (1.0-3.0) % Baso % (Auto) (0.0-1.0) % Sodium 139 (135-145) mmol/L Potassium 3.6 (3.6-5.0) mmol/L Chloride 110 (101-111) mmol/L Carbon Dioxide 23.0 (21.0-31.0) mmol/L Anion Gap 9.6 BUN 12 (7-18) mg/dL Creatinine 0.4 L (0.6-1.3) mg/dL Est Cr Clr Drug Dosing 150.82 mL/min Estimated GFR (MDRD) > 60 BUN/Creatinine Ratio Glucose 114 H (74-105) mg/dL Lactic Acid (0.5-2.2) mmol/L Calcium 8.2 L (8.4-10.2) mg/dl Phosphorus 2.6 (2.5-4.6) mg/dL Magnesium 1.8 (1.8-2.5) mg/dL Total Bilirubin (0.2-1.0) mg/dL AST (10-42) IU/L ALT (10-60) IU/L Alkaline Phosphatase (42-121) IU/L Total Protein (6.7-8.2) g/dl Albumin (3.2-5.5) g/dl Globulin Albumin/Globulin Ratio Amylase (28-100) U/L Lipase (22-51) U/L Urine Color Yellow (YELLOW) Urine Appearance Slightly cloudy (CLEAR) Urine pH 7.0 (5.0-9.0) Ur Specific [place] 1.020 (1.005-1.030) Urine Protein 30 H (NEGATIVE) Urine Glucose (UA) Negative (NEGATIVE) Urine Ketones Trace H (NEGATIVE) Urine Occult Blood Negative (NEGATIVE) Urine Nitrite Negative (NEGATIVE) Urine Bilirubin Negative (NEGATIVE) Urine Urobilinogen 0.2 (0.2-1.0) mg/dL Ur Leukocyte Esterase Negative (NEGATIVE) Urine RBC 0-5 /HPF Urine WBC 0-5 (0-5/HPF) /HPF Ur Epithelial Cells Few /HPF Urine Bacteria Few (0-FEW/HPF) /HPF Urine Mucus Many H /LPF Urine HCG, Qual Negative 07/02/17 Range/Units 06:08 WBC 5.3 (5.0-10.0) 10^3/uL RBC 4.54 (4.2-5.4) 10^6/uL Hgb 9.7 L (12.0-16.0) g/dL Hct 31.8 L (37.0-47.0) % MCV 70.0 L (80-100) fL MCH 21.4 L (27.0-34.0) pg MCHC 30.5 L (33.0-35.0) g/dL Plt Count 329 (150-450) 10^3/uL Neut % (Auto) 49.7 (42.2-75.2) % Lymph % (Auto) 37.2 (20.5-50.1) % [place] % (Auto) 12.7 H (2-8) % Eos % (Auto) 0.2 L (1.0-3.0) % Baso % (Auto) 0.2 (0.0-1.0) % Sodium (135-145) mmol/L Potassium (3.6-5.0) mmol/L Chloride (101-111) mmol/L Carbon Dioxide (21.0-31.0) mmol/L Anion Gap BUN (7-18) mg/dL Creatinine (0.6-1.3) mg/dL Est Cr Clr Drug Dosing mL/min Estimated GFR (MDRD) BUN/Creatinine Ratio Glucose (74-105) mg/dL Lactic Acid (0.5-2.2) mmol/L Calcium (8.4-10.2) mg/dl Phosphorus (2.5-4.6) mg/dL Magnesium (1.8-2.5) mg/dL Total Bilirubin (0.2-1.0) mg/dL AST (10-42) IU/L ALT (10-60) IU/L Alkaline Phosphatase (42-121) IU/L Total Protein (6.7-8.2) g/dl Albumin (3.2-5.5) g/dl Globulin Albumin/Globulin Ratio Amylase (28-100) U/L Lipase (22-51) U/L Urine Color (YELLOW) Urine Appearance (CLEAR) Urine pH (5.0-9.0) Ur Specific [place] (1.005-1.030) Urine Protein (NEGATIVE) Urine Glucose (UA) (NEGATIVE) Urine Ketones (NEGATIVE) Urine Occult Blood (NEGATIVE) Urine Nitrite (NEGATIVE) Urine Bilirubin (NEGATIVE) Urine Urobilinogen (0.2-1.0) mg/dL Ur Leukocyte Esterase (NEGATIVE) Urine RBC /HPF Urine WBC (0-5/HPF) /HPF Ur Epithelial Cells /HPF Urine Bacteria (0-FEW/HPF) /HPF Urine Mucus /LPF Urine HCG, Qual Med Orders - Current: Current Medications Acetaminophen (Tylenol) 650 mg PO Q4H PRN PRN Reason: Pain (Mild 1-3)/fever Last Admin: 07/02/17 06:19 Dose: 650 mg Heparin Sodium (Porcine) (Heparin Sodium) 5,000 units SUBCUT Q8HR [facility] Last Admin: 07/02/17 05:55 Dose: Not Given Potassium Chloride/Sodium Chloride (Normal Saline With 20 Meq Kcl) 1,000 mls @ 50 mls/hr IV ASDIRECTED [facility] Morphine Sulfate (Morphine) 2 mg IVPUSH Q2H PRN PRN Reason: Pain (severe 7-10) Last Admin: 07/02/17 06:20 Dose: 2 mg Ondansetron HCl (Zofran Odt) 4 mg PO Q6H PRN PRN Reason: nausea, able to take PO Ondansetron HCl (Zofran) 4 mg IVPUSH Q6H PRN PRN Reason: Nausea/Vomiting Last Admin: 07/01/17 23:00 Dose: 4 mg Oxycodone HCl (Oxycodone) 5 mg PO Q4H PRN PRN Reason: Pain (moderate 4-6) Last Admin: 07/02/17 06:14 Dose: 5 mg Pantoprazole Sodium (Protonix Iv) 40 mg IVPUSH Q12HR [facility] Last Admin: 07/02/17 08:53 Dose: 40 mg Zolpidem Tartrate (Ambien) 5 mg PO BEDTIME PRN PRN Reason: Sleep Last Admin: 07/01/17 23:16 Dose: 5 mg Discontinued Medications Sodium Chloride (Normal Saline) 1,000 mls @ 999 mls/hr IV .BOLUS ONE Stop: 07/01/17 20:00 Last Admin: 07/01/17 19:50 Dose: 999 mls/hr Potassium Chloride 10 meq/ (Premix) 100 mls @ 100 mls/hr IV ONETIME ONE Stop: 07/01/17 21:29 Last Admin: 07/01/17 20:40 Dose: 100 mls/hr Sodium Chloride (Normal Saline) 1,000 mls @ 999 mls/hr IV .BOLUS ONE Stop: 07/01/17 21:57 Last Admin: 07/01/17 20:59 Dose: 999 mls/hr Potassium Chloride 10 meq/ (Premix) 100 mls @ 50 mls/hr IV Q2H [facility] Stop: 07/02/17 08:29 Last Admin: 07/02/17 07:38 Dose: 50 mls/hr Potassium Chloride (Kcl 10 Meq In Water 100 Ml) Confirm Administered Dose 100 mls @ as directed .ROUTE .STK-MED ONE Stop: 07/02/17 00:57 Last Admin: 07/02/17 01:11 Dose: Not Given Metoclopramide HCl (Reglan) 10 mg IVPUSH ONETIME ONE Stop: 07/01/17 19:01 Last Admin: 07/01/17 19:46 Dose: 10 mg - Exam General: Reports: Alert, Oriented Neck: Reports: Supple Lungs: Reports: Clear to Auscultation, Normal Respiratory Effort GI/Abdominal Exam: Normal Bowel Sounds, Soft, Non-Tender Skin: Reports: Warm, Dry Neurological: Reports: No New Focal Deficit Psy/Mental Status: Reports: Alert, Normal Affect, Normal Mood
[2017-07-02 11:25] VITALS: BP 141/74
--- NOTE | 2017-07-03 00:26 | EDM.PDOC ---
ED HPI GENERAL MEDICAL PROBLEM - General Chief Complaint: Gastrointestinal Problem Stated Complaint: SAME YESTERDAY,CAN'T KEEP ANYTHING DONE Time Seen by Provider: 07/01/17 19:00 Source of Information: Reports: Patient History Limitations: Reports: No Limitations - History of Present Illness INITIAL COMMENTS - FREE TEXT/NARRATIVE: ED with c/o generalized weakness, has had vomiting and diarrhea since Saturday. In ED yesterday for fluids, home with zzofran. Has not helped, continued to vomit at lest 30 times today. Abdominal Pain Score (Numeric/FACES): 7 - Related Data Allergies Allergy/AdvReac Type Severity Reaction Status Date / Time No Known Allergies Allergy Verified 07/01/17 22:23 Home Meds: Home Meds Ondansetron [Zofran ODT] 4 mg PO Q6H PRN 07/01/17 [History] Pantoprazole Sodium 40 mg PO DAILY #10 tablet. 07/02/17 [Rx] Past Medical History HEENT History: Reports: None Cardiovascular History: Reports: None Respiratory History: Reports: None Gastrointestinal History: Reports: Other (See Below) Other Gastrointestinal History: "stomach infection" Genitourinary History: Reports: None [employer] History: Reports: Other OB/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 21 weeks along Musculoskeletal History: Reports: RA Neurological History: Reports: None Psychiatric History: Reports: Addiction, Depression Endocrine/Metabolic History: Reports: None Hematologic History: Reports: Anemia Other Immunologic History: RA Oncologic (Cancer) History: Reports: None Dermatologic History: Reports: Cellulitis, Eczema Other Dermatologic History: eczema - Infectious Disease History Infectious Disease History: Reports: Chicken Pox, Shingles - Past Surgical History HEENT Surgical History: Reports: None Cardiovascular Surgical History: Reports: None Respiratory Surgical History: Reports: None GI Surgical History: Reports: None Female Surgical History: Reports: Section, Tubal Ligation Endocrine Surgical History: Reports: None Neurological Surgical History: Reports: None Musculoskeletal Surgical History: Reports: None Oncologic Surgical History: Reports: None Dermatological Surgical History: Reports: None Social & Family History - Family History Family Medical History: Noncontributory - Tobacco Use Smoking Status *Q: Never Smoker Second Hand Smoke Exposure: No - Caffeine Use Caffeine Use: Reports: Coffee, Energy Drinks, Soda, Tea - Recreational Drug Use Recreational Drug Use: No ED ROS GENERAL - Review of Systems Review Of Systems: See Below Constitutional: Reports: Chills, Weakness, Decreased Appetite HEENT: Reports: No Symptoms Respiratory: Reports: No Symptoms Cardiovascular: Reports: Lightheadedness GI/Abdominal: Reports: Abdominal Pain (general), Diarrhea, Decreased Appetite, Nausea, Vomiting : Reports: No Symptoms Musculoskeletal: Reports: No Symptoms Skin: Reports: No Symptoms Neurological: Reports: No Symptoms ED EXAM, GENERAL - Physical Exam Exam: See Below Exam Limited By: No Limitations General Appearance: Alert, Moderate Distress Eye Exam: Bilateral Eye: EOMI Ears: Normal External Exam, Normal TMs Nose: Normal Inspection Throat/Mouth: Normal Inspection, Normal Lips Head: Atraumatic, Normocephalic Neck: Normal Inspection Respiratory/Chest: No Respiratory Distress, Lungs Clear Cardiovascular: Normal Peripheral Pulses, Regular Rate, Rhythm, No Murmur GI/Abdominal: Normal Bowel Sounds, Soft, Non-Tender Back Exam: Normal Inspection Extremities: Normal Inspection, Normal Range of Motion Neurological: Alert, Oriented, Normal Cognition Psychiatric: Normal Affect, Normal Mood Skin Exam: Warm, Dry, Intact, Pallor Course - Vital Signs Last Recorded V/S: Last Vital Signs Temp 98.5 F 07/02/17 11:20 Pulse 61 07/02/17 11:20 Resp 20 07/02/17 11:20 BP 141/74 H 07/02/17 11:20 Pulse Ox 100 07/02/17 11:20 Orthostatic Blood Pressure [ 138/81 Standing] Orthostatic Blood Pressure [ 141/82 Sitting] Orthostatic Blood Pressure [ 129/61 Supine] - Orders/Labs/Meds Labs: Laboratory Tests 07/01/17 07/01/17 07/01/17 Range/Units 19:43 19:43 19:43 WBC 5.3 (5.0-10.0) 10^3/uL RBC 5.12 (4.2-5.4) 10^6/uL Hgb 11.1 L (12.0-16.0) g/dL Hct 35.6 L (37.0-47.0) % MCV 69.5 L (80-100) fL MCH 21.7 L (27.0-34.0) pg MCHC 31.2 L (33.0-35.0) g/dL Plt Count 379 (150-450) 10^3/uL Neut % (Auto) 55.4 (42.2-75.2) % Lymph % (Auto) 31.5 (20.5-50.1) % [place] % (Auto) 12.9 H (2-8) % Eos % (Auto) 0.0 L (1.0-3.0) % Baso % (Auto) 0.2 (0.0-1.0) % Sodium 140 (135-145) mmol/L Potassium 2.9 L (3.6-5.0) mmol/L Chloride 105 (101-111) mmol/L Carbon Dioxide 26.0 (21.0-31.0) mmol/L Anion Gap 11.9 BUN 13 (7-18) mg/dL Creatinine 0.5 L (0.6-1.3) mg/dL Est Cr Clr Drug Dosing 120.66 mL/min Estimated GFR (MDRD) > 60 BUN/Creatinine Ratio 26.00 Glucose 103 (74-105) mg/dL Lactic Acid 1.0 (0.5-2.2) mmol/L Calcium 9.1 (8.4-10.2) mg/dl Total Bilirubin 0.4 (0.2-1.0) mg/dL AST 20 (10-42) IU/L ALT 15 (10-60) IU/L Alkaline Phosphatase 61 (42-121) IU/L Total Protein 8.3 H (6.7-8.2) g/dl Albumin 4.2 (3.2-5.5) g/dl Globulin 4.1 Albumin/Globulin Ratio 1.02 Amylase 103 H (28-100) U/L Lipase 36 (22-51) U/L Urine Color (YELLOW) Urine Appearance (CLEAR) Urine pH (5.0-9.0) Ur Specific [place] (1.005-1.030) Urine Protein (NEGATIVE) Urine Glucose (UA) (NEGATIVE) Urine Ketones (NEGATIVE) Urine Occult Blood (NEGATIVE) Urine Nitrite (NEGATIVE) Urine Bilirubin (NEGATIVE) Urine Urobilinogen (0.2-1.0) mg/dL Ur Leukocyte Esterase (NEGATIVE) Urine RBC /HPF Urine WBC (0-5/HPF) /HPF Ur Epithelial Cells /HPF Urine Bacteria (0-FEW/HPF) /HPF Urine Mucus /LPF Urine HCG, Qual 05/21/18 05/21/18 Range/Units 22:24 22:24 WBC (5.0-10.0) 10^3/uL RBC (4.2-5.4) 10^6/uL Hgb (12.0-16.0) g/dL Hct (37.0-47.0) % MCV (80-100) fL MCH (27.0-34.0) pg MCHC (33.0-35.0) g/dL Plt Count (150-450) 10^3/uL Neut % (Auto) (42.2-75.2) % Lymph % (Auto) (20.5-50.1) % [place] % (Auto) (2-8) % Eos % (Auto) (1.0-3.0) % Baso % (Auto) (0.0-1.0) % Sodium (135-145) mmol/L Potassium (3.6-5.0) mmol/L Chloride (101-111) mmol/L Carbon Dioxide (21.0-31.0) mmol/L Anion Gap BUN (7-18) mg/dL Creatinine (0.6-1.3) mg/dL Est Cr Clr Drug Dosing mL/min Estimated GFR (MDRD) BUN/Creatinine Ratio Glucose (74-105) mg/dL Lactic Acid (0.5-2.2) mmol/L Calcium (8.4-10.2) mg/dl Total Bilirubin (0.2-1.0) mg/dL AST (10-42) IU/L ALT (10-60) IU/L Alkaline Phosphatase (42-121) IU/L Total Protein (6.7-8.2) g/dl Albumin (3.2-5.5) g/dl Globulin Albumin/Globulin Ratio Amylase (28-100) U/L Lipase (22-51) U/L Urine Color Yellow (YELLOW) Urine Appearance Slightly cloudy (CLEAR) Urine pH 7.0 (5.0-9.0) Ur Specific [place] 1.020 (1.005-1.030) Urine Protein 30 H (NEGATIVE) Urine Glucose (UA) Negative (NEGATIVE) Urine Ketones Trace H (NEGATIVE) Urine Occult Blood Negative (NEGATIVE) Urine Nitrite Negative (NEGATIVE) Urine Bilirubin Negative (NEGATIVE) Urine Urobilinogen 0.2 (0.2-1.0) mg/dL Ur Leukocyte Esterase Negative (NEGATIVE) Urine RBC 0-5 /HPF Urine WBC 0-5 (0-5/HPF) /HPF Ur Epithelial Cells Few /HPF Urine Bacteria Few (0-FEW/HPF) /HPF Urine Mucus Many H /LPF Urine HCG, Qual Negative Meds: Medications Discontinued Medications Generic Name Dose Route Start Last Admin Trade Name Freq PRN Reason Stop Dose Admin Acetaminophen 650 mg 07/01/17 22:28 07/02/17 10:18 Tylenol PO 650 mg Q4H PRN Administration Pain (Mild 1-3)/fever Heparin Sodium (Porcine) 5,000 units 07/02/17 06:00 07/02/17 13:24 Heparin Sodium SUBCUT Not Given Q8HR [facility] Sodium Chloride 1,000 mls @ 999 mls/hr 07/01/17 19:00 07/01/17 19:50 Normal Saline IV 07/01/17 20:00 999 mls/hr .BOLUS ONE Administration Potassium Chloride 10 meq/ 100 mls @ 100 mls/hr 07/01/17 20:30 07/01/17 20:40 Premix IV 07/01/17 21:29 100 mls/hr ONETIME ONE Administration Sodium Chloride 1,000 mls @ 999 mls/hr 07/01/17 20:57 07/01/17 20:59 Normal Saline IV 07/01/17 21:57 999 mls/hr .BOLUS ONE Administration Potassium Chloride 10 meq/ 100 mls @ 50 mls/hr 07/01/17 22:30 07/02/17 09:56 Premix IV 07/02/17 08:29 Infused Q2H [facility] Infusion Potassium Chloride/Sodium Chloride 1,000 mls @ 50 mls/hr 07/01/17 22:30 Normal Saline With 20 Meq Kcl IV ASDIRECTED [facility] Potassium Chloride Confirm 07/02/17 00:56 07/02/17 01:11 Kcl 10 Meq In Water 100 Ml Administered 07/02/17 00:57 Not Given Dose 100 mls @ as directed .ROUTE .STK-MED ONE Metoclopramide HCl 10 mg 07/01/17 19:00 07/01/17 19:46 Reglan IVPUSH 07/01/17 19:01 10 mg ONETIME ONE Administration Morphine Sulfate 2 mg 07/01/17 22:28 07/02/17 06:20 Morphine IVPUSH 2 mg Q2H PRN Administration Pain (severe 7-10) Ondansetron HCl 4 mg 07/01/17 22:28 Zofran Odt PO Q6H PRN nausea, able to take PO Ondansetron HCl 4 mg 07/01/17 22:28 07/01/17 23:00 Zofran IVPUSH 4 mg Q6H PRN Administration Nausea/Vomiting Oxycodone HCl 5 mg 07/01/17 22:28 07/02/17 10:19 Oxycodone PO 5 mg Q4H PRN Administration Pain (moderate 4-6) Pantoprazole Sodium 40 mg 07/01/17 23:00 07/02/17 08:53 Protonix Iv IVPUSH 40 mg Q12HR [facility] Administration Zolpidem Tartrate 5 mg 07/01/17 22:28 07/01/17 23:16 Ambien PO 5 mg BEDTIME PRN Administration Sleep - Re-Assessments/Exams Free Text/Narrative Re-Assessment/Exam: 07/03/17 00:24 Dr. Mitchell accepting of patient for admission for further evaluation and managment of hypokalemia and vomiting Departure - Departure Time of Disposition: 21:55 Disposition: Admitted As Inpatient 65 Condition: Fair Clinical Impression: Gastroenteritis, Hypokalemia Nausea & vomiting Qualifiers: Vomiting type: unspecified Vomiting Intractability: unspecified Qualified Code( s): R11.2 - Nausea with vomiting, unspecified - Discharge Information
== END 2017-07-02 14:30 | disposition home or self-care (01) ==
LOC: DL.ED 17:43 → UNDOADMOB 22:06 → DL.MS 22:06
PROVIDERS: ADMIT Internal Medicine; ATTEND Internal Medicine
DX: R10.30 Lower abdominal pain, unspecified (principal); R11.2 Nausea with vomiting, unspecified; R19.7 Diarrhea, unspecified; E87.6 Hypokalemia; F32.9 Major depressive disorder, single episode, unspecified; Z79.899 Other long term (current) drug therapy
CPT/HCPCS: 36415; 80048; 80053; 81001; 81025; 82150; 83605; 83690; 83735; 84100; 85025; 93005; 96361; 96372; 96374; 96375; 99284; A9270; C9113; G0378; J2270; J2405; J2765; J3480; J7030; 96365

== ENCOUNTER 2018-02-21 13:07 | Emergency (ER) | payer SELFPAY ==
[2018-02-21] MEDS ORDERED: Sodium Chloride 0.9% 1,000 ML IV ONE ×2 (13:15→15:28)
[2018-02-21] MEDS ORDERED: Ondansetron 4 MG/2 ML SDV IV ONE ×2 (13:15→15:28)
[2018-02-21 13:29] VITALS: BP 146/97
[2018-02-21] MEDS: Sodium Chloride 0.9% 10 ML Syringe FLUSH PRN ×2 (13:34→16:12)
[2018-02-21] MEDS ORDERED: diphenhydrAMINE 50 MG/ML SDV IVPUSH ONE (13:45)
[2018-02-21] MEDS ORDERED: HYDROmorphone 1 MG/ML Syringe IVPUSH ONE (13:45)
[2018-02-21 13:55] LABS: ANION GAP 17.4; CHLORIDE,CL 99 mmol/L (101-111); SODIUM,NA 139 mmol/L (135-145)
[2018-02-21] MEDS ORDERED: Pantoprazole 40 MG Vial IVPUSH ONE (15:28)
--- NOTE | 2018-02-21 15:39 | EDM.PDOC ---
Scribed by Winnie Garcia 02/21/18 2041 for Feng Barney MD ED HPI GENERAL MEDICAL PROBLEM - General Chief Complaint: Abdominal Pain Stated Complaint: UNKNOWN Time Seen by Provider: 02/21/18 13:08 Source of Information: Reports: Patient, EMS, EMS Notes Reviewed, RN, RN Notes Reviewed History Limitations: Reports: No Limitations - History of Present Illness INITIAL COMMENTS - FREE TEXT/NARRATIVE: Patient presents to ER per [facility] with complaint of generalized abdominal pain with nausea and vomiting for 2 days. She feels like she might have diarrhea but has not had a bowel movement since she became ill. Admits to marijuana and methamphetamine use. Denies fever or chills. Has some urinary frequency but no pain. Pt states this has happened several times in the past, and soaking in a very hot bath seems to help. Onset Date: 02/19/18 Duration: Constant Location: Reports: Generalized Severity: Severe Improves with: Reports: None Worsens with: Reports: None Associated Symptoms: Reports: No Other Symptoms Generalized Pain Score (Numeric/FACES): 10 - Related Data Allergies Allergy/AdvReac Type Severity Reaction Status Date / Time No Known Allergies Allergy Verified 07/01/17 22:23 Home Meds: Home Meds Ondansetron [Zofran ODT] 4 mg PO Q6H PRN 07/01/17 [History] Pantoprazole Sodium 40 mg PO DAILY #10 tablet. 07/02/17 [Rx] Past Medical History HEENT History: Reports: None Cardiovascular History: Reports: None Respiratory History: Reports: None Gastrointestinal History: Reports: Other (See Below) Other Gastrointestinal History: "stomach infection" Genitourinary History: Reports: None CHILD CARE SPECIALIST History: Reports: Other CHILD CARE SPECIALIST History: 4, para 3. 21 weeks along Musculoskeletal History: Reports: RA Neurological History: Reports: None Psychiatric History: Reports: Addiction, Depression Endocrine/Metabolic History: Reports: None Hematologic History: Reports: Anemia Other Immunologic History: RA Oncologic (Cancer) History: Reports: None Dermatologic History: Reports: Cellulitis, Eczema Other Dermatologic History: eczema - Infectious Disease History Infectious Disease History: Reports: Chicken Pox, Shingles - Past Surgical History HEENT Surgical History: Reports: None Cardiovascular Surgical History: Reports: None Respiratory Surgical History: Reports: None GI Surgical History: Reports: None Female Surgical History: Reports: Section, Tubal Ligation Endocrine Surgical History: Reports: None Neurological Surgical History: Reports: None Musculoskeletal Surgical History: Reports: None Oncologic Surgical History: Reports: None Dermatological Surgical History: Reports: None Social & Family History - Family History Family Medical History: Noncontributory - Caffeine Use Caffeine Use: Reports: Coffee, Energy Drinks, Soda, Tea - Recreational Drug Use Recreational Drug Use: Yes Drug Use in Last 12 Months: Yes Recreational Drug Type: Reports: Marijuana/Hashish Recreational Drug Use Frequency: Daily (and binges on methamphetamine) ED ROS GENERAL - Review of Systems Review Of Systems: ROS reveals no pertinent complaints other than HPI. ED EXAM, GENERAL - Physical Exam Exam: See Below Exam Limited By: No Limitations General Appearance: Alert, WD/WN, No Apparent Distress, Thin Eye Exam: Bilateral Eye: Normal Inspection Nose: Normal Inspection, Normal Mucosa, No Blood Throat/Mouth: Normal Lips, Normal Teeth, Normal Gums, Normal Oropharynx, Normal Voice, No Airway Compromise, Other (Dry oral membranes) Head: Atraumatic, Normocephalic Neck: Normal Inspection, Supple, Non-Tender, Full Range of Motion Respiratory/Chest: No Respiratory Distress, Lungs Clear, Normal Breath Sounds, No Accessory Muscle Use, Chest Non-Tender Cardiovascular: Regular Rate, Rhythm, No Edema GI/Abdominal: Normal Bowel Sounds, Soft, No Distention, Tender (generalized). No: Guarding, Rigid, Rebound Back Exam: Normal Inspection, Full Range of Motion. No: CVA Tenderness (L), CVA Tenderness (R) Extremities: Normal Inspection, Normal Range of Motion, Non-Tender, Normal Capillary Refill, No Pedal Edema Neurological: Alert, Oriented, CN II-XII Intact, Normal Cognition, Normal Gait, No Motor/Sensory Deficits Psychiatric: Anxious Skin Exam: Warm, Dry, Intact, Normal Color, No Rash Course - Vital Signs Last Recorded V/S: Last Vital Signs Temp 37.2 C 02/21/18 13:08 Pulse 93 02/21/18 13:08 Resp 16 02/21/18 13:08 BP 146/97 H 02/21/18 13:08 Pulse Ox 100 02/21/18 13:08 - Orders/Labs/Meds Orders: Active Orders 24 hr Category Date Time Status Peripheral IV Care [RC] . DIRECTED Care 02/21/18 13:14 Active CHLAMYDIA AND GONORRHEA BY TMA Routine Lab 02/21/18 13:57 Ordered CULTURE URINE [RM] Stat Lab 02/21/18 13:27 Received Ondansetron [Zofran] Med 02/21/18 15:28 Once 4 mg IV ONETIME ONE Pantoprazole [ProTONIX IV] Med 02/21/18 15:28 Once 40 mg IVPUSH ONETIME ONE Sodium Chloride 0.9% [Normal Saline] 1,000 ml Med 02/21/18 15:28 Ordered IV .BOLUS Sodium Chloride 0.9% [Saline Flush] Med 02/21/18 13:13 Active 10 ml FLUSH ASDIRECTED PRN Peripheral IV Insertion Adult [OM.PC] Stat Oth 02/21/18 13:14 Ordered Medication Orders Sodium Chloride (Saline Flush) 10 ml FLUSH ASDIRECTED PRN PRN Reason: Keep Vein Open Last Admin: 02/21/18 13:34 Dose: 10 ml Labs: Laboratory Tests 02/21/18 02/21/18 02/21/18 Range/Units 13:28 13:28 13:30 WBC 4.8 L (5.0-10.0) 10^3/uL RBC 5.64 H (4.2-5.4) 10^6/uL Hgb 11.2 L D (12.0-16.0) g/dL Hct 36.5 L (37.0-47.0) % MCV 64.7 L D (80-100) fL MCH 19.9 L (27.0-34.0) pg MCHC 30.7 L (33.0-35.0) g/dL Plt Count 469 H D (150-450) 10^3/uL Neut % (Auto) 78.6 H (42.2-75.2) % Lymph % (Auto) 16.6 L (20.5-50.1) % [place] % (Auto) 4.6 (2-8) % Eos % (Auto) 0.0 L (1.0-3.0) % Baso % (Auto) 0.2 (0.0-1.0) % Sodium 139 (135-145) mmol/L Potassium 3.4 L (3.6-5.0) mmol/L Chloride 99 L (101-111) mmol/L Carbon Dioxide 26.0 (21.0-31.0) mmol/L Anion Gap 17.4 BUN 18 (7-18) mg/dL Creatinine 0.7 (0.6-1.3) mg/dL Est Cr Clr Drug Dosing 84.99 mL/min Estimated GFR (MDRD) > 60 BUN/Creatinine Ratio 25.71 Glucose 154 H (74-105) mg/dL Calcium 9.2 (8.4-10.2) mg/dl Total Bilirubin 0.6 (0.2-1.0) mg/dL AST 37 (10-42) IU/L ALT 18 (10-60) IU/L Alkaline Phosphatase 65 (42-121) IU/L Total Protein 8.6 H (6.7-8.2) g/dl Albumin 4.4 (3.2-5.5) g/dl Globulin 4.2 Albumin/Globulin Ratio 1.05 Amylase 81 (28-100) U/L Lipase 29 (22-51) U/L Urine Color (YELLOW) Urine Appearance (CLEAR) Urine pH (5.0-9.0) Ur Specific [place] (1.005-1.030) Urine Protein (NEGATIVE) Urine Glucose (UA) (NEGATIVE) Urine Ketones (NEGATIVE) Urine Occult Blood (NEGATIVE) Urine Nitrite (NEGATIVE) Urine Bilirubin (NEGATIVE) Urine Urobilinogen (0.2-1.0) mg/dL Ur Leukocyte Esterase (NEGATIVE) Urine RBC /HPF Urine WBC (0-5/HPF) /HPF Ur Epithelial Cells /HPF Urine Bacteria (0-FEW/HPF) /HPF Urine Mucus /LPF Urinalysis Comment Urine HCG, Qual Negative Urine Opiates Screen (NEGATIVE) Ur Oxycodone Screen (NEGATIVE) Urine Methadone Screen (NEGATIVE) Ur Barbiturates Screen (NEGATIVE) U Tricyclic Antidepress (NEGATIVE) Ur Phencyclidine Scrn (NEGATIVE) Ur Amphetamine Screen (NEGATIVE) U Methamphetamines Scrn (NEGATIVE) Urine MDMA Screen (NEGATIVE) U Benzodiazepines Scrn (NEGATIVE) Urine Cocaine Screen (NEGATIVE) U Marijuana (THC) Screen (NEGATIVE) 02/21/18 02/21/18 Range/Units 13:30 13:30 WBC (5.0-10.0) 10^3/uL RBC (4.2-5.4) 10^6/uL Hgb (12.0-16.0) g/dL Hct (37.0-47.0) % MCV (80-100) fL MCH (27.0-34.0) pg MCHC (33.0-35.0) g/dL Plt Count (150-450) 10^3/uL Neut % (Auto) (42.2-75.2) % Lymph % (Auto) (20.5-50.1) % [place] % (Auto) (2-8) % Eos % (Auto) (1.0-3.0) % Baso % (Auto) (0.0-1.0) % Sodium (135-145) mmol/L Potassium (3.6-5.0) mmol/L Chloride (101-111) mmol/L Carbon Dioxide (21.0-31.0) mmol/L Anion Gap BUN (7-18) mg/dL Creatinine (0.6-1.3) mg/dL Est Cr Clr Drug Dosing mL/min Estimated GFR (MDRD) BUN/Creatinine Ratio Glucose (74-105) mg/dL Calcium (8.4-10.2) mg/dl Total Bilirubin (0.2-1.0) mg/dL AST (10-42) IU/L ALT (10-60) IU/L Alkaline Phosphatase (42-121) IU/L Total Protein (6.7-8.2) g/dl Albumin (3.2-5.5) g/dl Globulin Albumin/Globulin Ratio Amylase (28-100) U/L Lipase (22-51) U/L Urine Color Dark yellow (YELLOW) Urine Appearance Cloudy (CLEAR) Urine pH 8.5 (5.0-9.0) Ur Specific [place] 1.015 (1.005-1.030) Urine Protein >=300 H (NEGATIVE) Urine Glucose (UA) Negative (NEGATIVE) Urine Ketones 15 H (NEGATIVE) Urine Occult Blood Negative (NEGATIVE) Urine Nitrite Negative (NEGATIVE) Urine Bilirubin Small H (NEGATIVE) Urine Urobilinogen 1.0 (0.2-1.0) mg/dL Ur Leukocyte Esterase Negative (NEGATIVE) Urine RBC 0-5 /HPF Urine WBC 5-10 H (0-5/HPF) /HPF Ur Epithelial Cells Moderate H /HPF Urine Bacteria Many H (0-FEW/HPF) /HPF Urine Mucus Many H /LPF Urinalysis Comment Urine HCG, Qual Urine Opiates Screen Negative (NEGATIVE) Ur Oxycodone Screen Negative (NEGATIVE) Urine Methadone Screen Negative (NEGATIVE) Ur Barbiturates Screen Negative (NEGATIVE) U Tricyclic Antidepress Negative (NEGATIVE) Ur Phencyclidine Scrn Negative (NEGATIVE) Ur Amphetamine Screen Negative (NEGATIVE) U Methamphetamines Scrn Positive H (NEGATIVE) Urine MDMA Screen Negative (NEGATIVE) U Benzodiazepines Scrn Negative (NEGATIVE) Urine Cocaine Screen Negative (NEGATIVE) U Marijuana (THC) Screen Positive H (NEGATIVE) Meds: Medications Generic Name Dose Route Start Last Admin Trade Name Freq PRN Reason Stop Dose Admin Sodium Chloride 10 ml 02/21/18 13:13 02/21/18 13:34 Saline Flush FLUSH 10 ml ASDIRECTED PRN Administration Keep Vein Open Discontinued Medications Generic Name Dose Route Start Last Admin Trade Name Freq PRN Reason Stop Dose Admin Diphenhydramine HCl 25 mg 02/21/18 13:45 02/21/18 13:59 Benadryl IVPUSH 02/21/18 13:46 25 mg ONETIME ONE Administration Hydromorphone HCl 0.5 mg 02/21/18 13:45 02/21/18 13:59 Dilaudid IVPUSH 02/21/18 13:46 0.5 mg ONETIME ONE Administration Sodium Chloride 1,000 mls @ 999 mls/hr 02/21/18 13:15 02/21/18 13:34 Normal Saline IV 02/21/18 14:15 999 mls/hr .BOLUS ONE Administration Ondansetron HCl 4 mg 02/21/18 13:15 02/21/18 13:34 Zofran IV 02/21/18 13:16 4 mg ONETIME ONE Administration Departure - Departure Time of Disposition: 16:00 Disposition: Home, Self-Care 01 Condition: Good Clinical Impression: Cannabinoid hyperemesis syndrome Abdominal pain Qualifiers: Abdominal location: generalized Qualified Code(s): R10.84 - Generalized abdominal pain - Discharge Information *PRESCRIPTION DRUG MONITORING PROGRAM REVIEWED*: No *COPY OF PRESCRIPTION DRUG MONITORING REPORT IN PATIENT STEVE: No Instructions: Cannabinoid Hyperemesis Syndrome Forms: ED Department Discharge Additional Instructions: Rx: Carafate 1g Rx: Zofran 4mg Abstain from marijuana use. Follow up in clinic for recheck and for a referral to GI specialist. - My Orders Last 24 Hours: My Active Orders 02/21/18 13:13 Sodium Chloride 0.9% [Saline Flush] 10 ml FLUSH ASDIRECTED PRN 02/21/18 13:14 Peripheral IV Care [RC] . DIRECTED Peripheral IV Insertion Adult [OM.PC] Stat 02/21/18 13:27 CULTURE URINE [RM] Stat 02/21/18 13:57 CHLAMYDIA AND GONORRHEA BY TMA Routine 02/21/18 15:28 Ondansetron [Zofran] 4 mg IV ONETIME ONE Pantoprazole [ProTONIX IV] 40 mg IVPUSH ONETIME ONE Sodium Chloride 0.9% [Normal Saline] 1,000 ml IV .BOLUS - Assessment/Plan Last 24 Hours: My Active Orders 02/21/18 13:13 Sodium Chloride 0.9% [Saline Flush] 10 ml FLUSH ASDIRECTED PRN 02/21/18 13:14 Peripheral IV Care [RC] . DIRECTED Peripheral IV Insertion Adult [OM.PC] Stat 02/21/18 13:27 CULTURE URINE [RM] Stat 02/21/18 13:57 CHLAMYDIA AND GONORRHEA BY TMA Routine 02/21/18 15:28 Ondansetron [Zofran] 4 mg IV ONETIME ONE Pantoprazole [ProTONIX IV] 40 mg IVPUSH ONETIME ONE Sodium Chloride 0.9% [Normal Saline] 1,000 ml IV .BOLUS I have read and agree with the documentation that has been completed regarding this visit. By signing this record, I attest that the documentation was completed in my physical presence and is an accurate record of the encounter.
[2018-02-21] MEDS ORDERED: cefTRIAXone 500 MG Vial IVPUSH ONE (16:20)
[2018-02-21] MEDS ORDERED: Azithromycin 250 MG Tab PO ONE (16:23)
== END 2018-02-21 17:10 | disposition home or self-care (01) ==
LOC: DL.ED 13:07
DX: R11.10 Vomiting, unspecified (principal); F12.988 Cannabis use, unspecified with other cannabis-induced disorder; N76.0 Acute vaginitis; B96.89 Other specified bacterial agents as the cause of diseases classified elsewhere; Z79.899 Other long term (current) drug therapy
CPT/HCPCS: 36415; 80053; 80305; 81001; 81025; 82150; 83690; 85025; 87086; 87491; 87591; 96361; 96374; 96375; 99284; A9270; C9113; J0696; J1170; J1200; J2405; J7030

== ENCOUNTER 2020-05-13 22:25 | Emergency (ER) | payer MEDICAID, OTHER ==
[2020-05-13] MEDS ORDERED: LORazepam 1 MG Tab PO ONE (22:26)
[2020-05-13 23:36] LABS: CHLORIDE,CL 103 mmol/L (98-107); SODIUM,NA 140 mmol/L (136-145)
[2020-05-14 00:08] VITALS: BP 115/58; PULSE 95
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
[2020-05-14] MEDS ORDERED: LORazepam 1 MG Tab ONE (01:18)
== END 2020-05-14 01:22 | disposition home or self-care (01) ==
LOC: DL.ED 22:25
DX: O99.312 Alcohol use complicating pregnancy, second trimester (principal); F10.10 Alcohol abuse, uncomplicated; O99.322 Drug use complicating pregnancy, second trimester; F15.10 Other stimulant abuse, uncomplicated; F22 Delusional disorders; Z72.820 Sleep deprivation; Z72.0 Tobacco use; Z3A.21 21 weeks gestation of pregnancy
CPT/HCPCS: 36415; 80053; 80305; 80307; 81001; 85025; 87086; 87088; 87186; 99283; 99284; A9270

== ENCOUNTER 2021-01-22 01:48 | Emergency (ER) | payer MEDICAID ==
[2021-01-22 02:15] VITALS: BP 114/76; PULSE 95
[2021-01-22] MEDS ORDERED: MVI, Adult with Vitamin K 10 ML, Folic Acid 1 MG, Thiamine 100 MG in Lactated Ringers 1... IV ONE ×4 (03:02)
[2021-01-22 04:02] LABS: ANION GAP 17.2 mEq/L (7-13); CHLORIDE,CL 109 mmol/L (98-107); SODIUM,NA 145 mmol/L (136-145)
--- NOTE | 2021-01-22 04:48 | EDM.PDOC ---
<Fermín Duval - Last Filed: 01/22/21 07:25> ED HPI GENERAL MEDICAL PROBLEM - General Chief Complaint: General Stated Complaint: AMBULANCE Time Seen by Provider: 01/22/21 02:30 - Related Data Allergies Allergy/AdvReac Type Severity Reaction Status Date / Time No Known Allergies Allergy Verified 07/01/17 22:23 Home Meds: Home Meds Ondansetron [Zofran ODT] 4 mg PO Q6H PRN 07/01/17 [History] Pantoprazole Sodium 40 mg PO DAILY #10 tablet. 07/02/17 [Rx] Departure - Departure Time of Disposition: 07:26 Disposition: Home, Self-Care 01 Condition: Fair Clinical Impression: Alcohol abuse - Discharge Information *PRESCRIPTION DRUG MONITORING PROGRAM REVIEWED*: Not Applicable *COPY OF PRESCRIPTION DRUG MONITORING REPORT IN PATIENT STEVE: Not Applicable Instructions: Alcohol Abuse and Dependence Information, Adult Forms: ED Department Discharge Care Plan Goals: The patient was advised of the examination and lab results during the visit. The patient was given a liter of IV fluids with multivitamins during the visit. The patient was advised to avoid alcohol use/abuse. The patient should follow-up with her primary care facility next week. If the patient has any additional symptoms or concerns, the patient should either return to the emergency department or visit her primary care facility. <Taina Martinez - Last Filed: 01/23/21 06:23> ED HPI GENERAL MEDICAL PROBLEM - General Source of Information: Reports: Patient, EMS History Limitations: Reports: Intoxication - History of Present Illness INITIAL COMMENTS - FREE TEXT/NARRATIVE: ED via [facility]. Patient reported to have been arguing with sister Karlos [place] [employer] called. Patient admitted that she had been drinking tonight and had recently done some meth. PD then call [facility] because "intoxicated" she could n't go to [facility]". Patient yelling and swearing on arrival. Un cooperative but non combative on arrival. 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 21 weeks along Musculoskeletal History: Reports: RA Neurological History: Reports: None Psychiatric History: Reports: Addiction, Depression Endocrine/Metabolic History: Reports: None Hematologic History: Reports: Anemia Other Immunologic History: RA Oncologic (Cancer) History: Reports: None Dermatologic History: Reports: Cellulitis, Eczema Other Dermatologic History: eczema - Infectious Disease History Infectious Disease History: Reports: Chicken Pox, Shingles - Past Surgical History Head Surgeries/Procedures: Reports: None HEENT Surgical History: Reports: None Cardiovascular Surgical History: Reports: None Respiratory Surgical History: Reports: None GI Surgical History: Reports: None Female Surgical History: Reports: Section, Tubal Ligation Endocrine Surgical History: Reports: None Neurological Surgical History: Reports: None Musculoskeletal Surgical History: Reports: None Oncologic Surgical History: Reports: None Dermatological Surgical History: Reports: None Social & Family History - Family History Family Medical History: No Pertinent Family History - Tobacco Use Tobacco Use Status *Q: Current Status Unknown Second Hand Smoke Exposure: Yes - Caffeine Use Caffeine Use: Reports: Coffee, Soda - Recreational Drug Use Recreational Drug Use: Yes Drug Use in Last 12 Months: Yes Recreational Drug Type: Reports: Methamphetamine ED ROS GENERAL - Review of Systems Review Of Systems: Comprehensive ROS is negative, except as noted in HPI. Reason Not Obtained: intoxicated, uncooperative Constitutional: Reports: No Symptoms HEENT: Reports: No Symptoms ED EXAM, GENERAL - Physical Exam Exam: See Below Exam Limited By: No Limitations General Appearance: Alert, No Apparent Distress, Thin Eye Exam: Bilateral Eye: EOMI, PERRL Ears: Normal External Exam Nose: Normal Inspection Throat/Mouth: Normal Inspection, Normal Lips, Normal Gums, Normal Oropharynx, Normal Voice Head: Atraumatic, Normocephalic Neck: Normal Inspection Respiratory/Chest: No Respiratory Distress Cardiovascular: Normal Peripheral Pulses, Regular Rate, Rhythm GI/Abdominal: Guarding, Rigid (Female) Exam: Normal External Exam Extremities: Normal Inspection Neurological: Alert, Oriented, Normal Cognition, Abnormal Reflexes Psychiatric: Normal Mood Skin Exam: Warm, Dry, Intact Course - Vital Signs Last Recorded V/S: Last Vital Signs Temp 97.7 F 01/22/21 02:10 Pulse 95 01/22/21 02:10 Resp 16 01/22/21 02:10 BP 114/76 01/22/21 02:10 Pulse Ox 98 01/22/21 02:10 - Orders/Labs/Meds Labs: Laboratory Tests 1201/22/21 01/22/21 Range/Units 03:35 03:35 04:30 WBC 4.8 L (5.0-10.0) 10^3/uL RBC 5.19 (4.2-5.4) 10^6/uL Hgb 10.2 L (12.0-16.0) g/dL Hct 34.3 L (37.0-47.0) % MCV 66.1 L (80-100) fL MCH 19.7 L (27.0-34.0) pg MCHC 29.7 L (33.0-35.0) g/dL Plt Count 522 H D (150-450) 10^3/uL Neut % (Auto) 71.7 (42.2-75.2) % Lymph % (Auto) 22.9 (20.5-50.1) % [place] % (Auto) 4.8 (2-8) % Eos % (Auto) 0.4 L (1.0-3.0) % Baso % (Auto) 0.2 (0.0-1.0) % Sodium 145 (136-145) mmol/L Potassium 4.2 (3.5-5.1) mmol/L Chloride 109 H (98-107) mmol/L Carbon Dioxide 23 (21-32) mmol/L Anion Gap 17.2 H (7-13) mEq/L BUN 9 (7-18) mg/dL Creatinine 0.51 L (0.55-1.02) mg/dL Est Cr Clr Drug Dosing TNP Estimated GFR (MDRD) > 60 BUN/Creatinine Ratio 17.6 (No establ ref range) Glucose 103 H (70-99) mg/dL Calcium 7.9 L (8.5-10.1) mg/dL Total Bilirubin 0.1 L (0.2-1.0) mg/dL AST 27 (15-37) U/L ALT 21 (14-59) U/L Alkaline Phosphatase 122 H (46-116) U/L Total Protein 8.2 (6.4-8.2) g/dL Albumin 3.3 L (3.4-5.0) g/dL Globulin 4.9 Albumin/Globulin Ratio 0.67 Urine Opiates Screen Negative (NEGATIVE) Ur Oxycodone Screen Negative (NEGATIVE) Urine Methadone Screen Negative (NEGATIVE) Ur Barbiturates Screen Negative (NEGATIVE) U Tricyclic Antidepress Negative (NEGATIVE) Ur Phencyclidine Scrn Negative (NEGATIVE) Ur Amphetamine Screen Negative (NEGATIVE) U Methamphetamines Scrn Negative (NEGATIVE) Urine MDMA Screen Negative (NEGATIVE) U Benzodiazepines Scrn Negative (NEGATIVE) Urine Cocaine Screen Negative (NEGATIVE) U Marijuana (THC) Screen Positive H (NEGATIVE) Ethyl Alcohol 360 (0) mg/dL Meds: Medications Discontinued Medications Generic Name Dose Route Start Last Admin Trade Name Freq PRN Reason Stop Dose Admin Multivitamins/Minerals 10 ml/ 1,011.2 mls @ 999 mls/hr 01/22/21 03:02 01/22/21 03:38 Folic Acid 1 mg/ Thiamine HCl IV 01/22/21 04:02 999 mls/hr 100 mg/ Lactated Ringer's ONETIME ONE Administration Sepsis Event Note (ED) - Evaluation Sepsis Screening Result: No Definite Risk
[2021-01-22 04:59] LABS: AMPHETAMINES,URINE NEGATIVE (NEGATIVE); BARBITURATES,URINE NEGATIVE (NEGATIVE); BENZODIAZEPINE,URINE NEGATIVE (NEGATIVE); MDMA (ECSTASY), URINE NEGATIVE (NEGATIVE); METHADONE,URINE NEGATIVE (NEGATIVE); METHAMPHETAMINES,URINE NEGATIVE (NEGATIVE); OPIATES,URINE NEGATIVE (NEGATIVE); OXYCODONE,URINE NEGATIVE (NEGATIVE); PHENCYCLIDINE,URINE NEGATIVE (NEGATIVE); TCA,URINE NEGATIVE (NEGATIVE)
== END 2021-01-22 07:30 | disposition home or self-care (01) ==
LOC: DL.ED 01:48
DX: F10.10 Alcohol abuse, uncomplicated (principal); Z79.899 Other long term (current) drug therapy; Y90.8 Blood alcohol level of 240 mg/100 ml or more
CPT/HCPCS: 36415; 80053; 80305; 80307; 85025; 96365; 99284; J3411; J7120; J3490

== ENCOUNTER 2021-04-03 15:42 | Emergency (ER) | payer MEDICAID ==
[2021-04-03 15:48] VITALS: BP 118/75; PULSE 99
[2021-04-03 17:20] LABS: ANION GAP 17.4 mEq/L (7-13); CHLORIDE,CL 95 mmol/L (98-107); SODIUM,NA 133 mmol/L (136-145)
== END 2021-04-03 17:18 | disposition left against medical advice (07) ==
LOC: DL.ED 15:42
DX: E87.6 Hypokalemia (principal); F10.10 Alcohol abuse, uncomplicated; Z72.0 Tobacco use; Z79.899 Other long term (current) drug therapy
CPT/HCPCS: 36415; 80053; 80307; 83735; 85025; 99284

== ENCOUNTER 2021-10-17 04:37 | Emergency (ER) | payer MEDICAID ==
[2021-10-17 04:42] VITALS: BP 114/88; PULSE 98
[2021-10-17 05:35] LABS: CHLORIDE,CL 99 mmol/L (98-107)
[2021-10-17] MEDS ORDERED: Potassium Chloride 20 MEQ in Premix Bag 1 BAG IV ONE (05:37)
[2021-10-17] MEDS ORDERED: MVI, Adult with Vitamin K 10 ML, Folic Acid 1 MG, Thiamine 100 MG in Lactated Ringers 1... IV ONE ×4 (05:38)
[2021-10-17 05:40] LABS: ANION GAP 14.4 mEq/L (7-13); SODIUM,NA 135 mmol/L (136-145)
[2021-10-17 05:42] LABS: CORONAVIRUS COVID-19 NAA NEGATIVE (NEGATIVE)
[2021-10-17 05:45] LABS: ACETAMINOPHEN 0 ug/mL (10-30 (Therapeutic)); ESTIMATED GFR 113 mL/min (>=60)
[2021-10-17 06:09] LABS: AMPHETAMINES,URINE POSITIVE (NEGATIVE); BARBITURATES,URINE NEGATIVE (NEGATIVE); BENZODIAZEPINE,URINE NEGATIVE (NEGATIVE); MDMA (ECSTASY), URINE NEGATIVE (NEGATIVE); METHADONE,URINE NEGATIVE (NEGATIVE); METHAMPHETAMINES,URINE POSITIVE (NEGATIVE); OPIATES,URINE NEGATIVE (NEGATIVE); OXYCODONE,URINE NEGATIVE (NEGATIVE); PHENCYCLIDINE,URINE NEGATIVE (NEGATIVE); TCA,URINE NEGATIVE (NEGATIVE)
[2021-10-17] MEDS ORDERED: cefTRIAXone 1 GM in Sodium Chloride 0.9% 50 ML IV ONE (07:27)
[2021-10-17] MEDS ORDERED: NS with KCl 40mEq 1,000 ML IV SCH (07:30)
[2021-10-18 13:46] LABS: C.TRACHOMATIS BY TMA Positive (Negative); N.GONORRHOEAE BY TMA Positive (Negative)
== END 2021-10-17 11:12 | disposition home or self-care (01) ==
LOC: DL.ED 04:37
DX: F10.129 Alcohol abuse with intoxication, unspecified (principal); N39.0 Urinary tract infection, site not specified; F15.10 Other stimulant abuse, uncomplicated; E87.6 Hypokalemia; R45.851 Suicidal ideations; F17.210 Nicotine dependence, cigarettes, uncomplicated; Z20.822 Contact with and (suspected) exposure to COVID-19; Y90.8 Blood alcohol level of 240 mg/100 ml or more
CPT/HCPCS: 0240U; 36415; 80053; 80143; 80179; 80305; 80307; 81001; 81025; 82140; 82150; 83605; 83735; 84484; 85025; 87040; 87086; 87088; 87186; 87491; 87563; 87591; 93005; 96365; 96366; 96367; 96368; 99285; J0696; J3411; J3480; J7120; J3490

== ENCOUNTER 2022-08-25 13:41 | Emergency (ER) | payer MEDICAID ==
[2022-08-25 14:31] VITALS: BP 125/101; PULSE 81
[2022-08-25] MEDS ORDERED: Ondansetron 4 MG/2 ML SDV IVPUSH ONE ×2 (14:35→16:01)
[2022-08-25] MEDS ORDERED: Lactated Ringers 1,000 ML IV ONE (14:35)
[2022-08-25] MEDS ORDERED: Pantoprazole 40 MG Vial IVPUSH ONE (14:40)
[2022-08-25 16:12] LABS: BASOPHILS PERCENT AUTO 0.1 % (0.0-1.0); HEMATOCRIT 32.3 % (37.0-47.0); HEMOGLOBIN 10.1 g/dL (12.0-16.0); LYMPHOCYTES PERCENT AUTO 4.5 % (20.5-50.1); MEAN CORPUSCULAR HEMOGLOBIN 23.2 pg (27.0-34.0); MEAN CORPUSCULAR HGB CONC 31.3 g/dL (33.0-35.0); MEAN CORPUSCULAR VOLUME 74.1 fL (80-100); MONOCYTES PERCENT AUTO 4.6 % (2-8); NEUTROPHILS PERCENT AUTO 90.8 % (42.2-75.2); PLATELET COUNT,PLT 377 10^3/uL (150-450); RED BLOOD CELL COUNT 4.36 10^6/uL (4.2-5.4); WHITE BLOOD CELL COUNT,WBC 12.3 10^3/uL (5.0-10.0)
[2022-08-25 16:33] LABS: A/G RATIO 0.73; ALANINE AMINOTRANSFERASE,ALT 18 U/L (14-59); ALBUMIN 3.2 g/dL (3.4-5.0); ALKALINE PHOSPHATASE 96 U/L (46-116); ANION GAP 14.2 mEq/L (7-13); ASPARTATE AMNIOTRANSFERASE,AST 13 U/L (15-37); BILIRUBIN TOTAL 0.3 mg/dL (0.2-1.0); BLOOD UREA NITROGEN,BUN 9 mg/dL (7-18); BUN/CREATININE RATIO 14.1 (No establ ref range); C-REACTIVE PROTEIN 3.6 mg/dL (0.0-0.9); CALCIUM 8.7 mg/dL (8.5-10.1); CARBON DIOXIDE,CO2 26 mmol/L (21-32); CHLORIDE,CL 108 mmol/L (98-107); CREATININE 0.64 mg/dL (0.55-1.02); EST CRCL DRUG DOSING (CG) 89.64 mL/min; ESTIMATED GFR 112 mL/min (>=60); ETHANOL BLOOD MEDICAL < 3 mg/dL (0); GLUCOSE RANDOM 148 mg/dL (70-99); POTASSIUM,K 3.2 mmol/L (3.5-5.1); PROTEIN TOTAL,TP 7.6 g/dL (6.4-8.2); SODIUM,NA 145 mmol/L (136-145)
[2022-08-25 17:17] LABS: BILIRUBIN,URINE SMALL (NEGATIVE); COLOR,URINE RED (YELLOW); GLUCOSE,URINE NEGATIVE (NEGATIVE); KETONES,URINE 80 (NEGATIVE); LEUKOCYTE ESTERASE,URINE NEGATIVE (NEGATIVE); NITRITE,URINE NEGATIVE (NEGATIVE); OCCULT BLOOD,URINE LARGE (NEGATIVE); PH,URINE >= 9.0 (5.0-9.0); PROTEIN,URINE 100 (NEGATIVE); UROBILINOGEN,URINE 0.2 mg/dL (0.2-1.0)
[2022-08-25 17:18] LABS: APPEARANCE,URINE CLOUDY (CLEAR)
[2022-08-25 17:23] LABS: AMPHETAMINES,URINE NEGATIVE (NEGATIVE); BARBITURATES,URINE NEGATIVE (NEGATIVE); BENZODIAZEPINE,URINE NEGATIVE (NEGATIVE); MDMA (ECSTASY), URINE NEGATIVE (NEGATIVE); METHADONE,URINE NEGATIVE (NEGATIVE); METHAMPHETAMINES,URINE NEGATIVE (NEGATIVE); OPIATES,URINE NEGATIVE (NEGATIVE); OXYCODONE,URINE NEGATIVE (NEGATIVE); PHENCYCLIDINE,URINE NEGATIVE (NEGATIVE); TCA,URINE NEGATIVE (NEGATIVE)
[2022-08-25 17:25] LABS: BACTERIA,URINE FEW /HPF (0-FEW/HPF); EPITHELIAL CELLS,URINE RARE /HPF (NOT SEEN); RBC,URINE >100 /HPF (0-5); WBC,URINE 0-5 /HPF (0-5/HPF)
[2022-08-25] MEDS ORDERED: Iopamidol 612 MG/ML 100 ML Bottle IVPUSH ONE (18:12)
[2022-08-25] MEDS ORDERED: Take Home: Ondansetron 4 MG Tab.DIS, 5 Tab Pack PO ONE (20:12)
== END 2022-08-25 20:56 | disposition home or self-care (01) ==
LOC: DL.ED 13:41
DX: R10.84 Generalized abdominal pain (principal); R11.2 Nausea with vomiting, unspecified
CPT/HCPCS: 36415; 74177; 80053; 80305; 80307; 81001; 84703; 85025; 86140; 96361; 96374; 96375; 96376; 99284; C9113; J2405; J7120; Q0162; Q9967

== ENCOUNTER 2022-10-15 17:53 | Inpatient (IN) | payer MEDICAID ==
[2022-10-15] MEDS ORDERED: Sodium Chloride 0.9% 1,000 ML IV ONE (18:00)
[2022-10-15] MEDS ORDERED: Sodium Chloride 0.9% 10 ML Syringe FLUSH PRN (18:01)
[2022-10-15] MEDS ORDERED: Lactated Ringers 1,000 ML IV ONE ×2 (18:01→18:38)
[2022-10-15] MEDS ORDERED: cefTRIAXone 2 GM Vial IV ONE (18:01)
[2022-10-15] MEDS ORDERED: Morphine 2 MG/ML SYRINGE IVPUSH ONE (18:08)
[2022-10-15] MEDS ORDERED: Naloxone 2 MG/2 ML Syringe IVPUSH PRN (18:08)
[2022-10-15 18:15] LABS: BASOPHILS PERCENT AUTO 0.1 % (0.0-1.0); HEMATOCRIT 35.3 % (37.0-47.0); HEMOGLOBIN 11.2 g/dL (12.0-16.0); LYMPHOCYTES PERCENT AUTO 5.6 % (20.5-50.1); MEAN CORPUSCULAR HEMOGLOBIN 23.1 pg (27.0-34.0); MEAN CORPUSCULAR HGB CONC 31.7 g/dL (33.0-35.0); MEAN CORPUSCULAR VOLUME 72.9 fL (80-100); MONOCYTES PERCENT AUTO 5.4 % (2-8); NEUTROPHILS PERCENT AUTO 88.9 % (42.2-75.2); PLATELET COUNT,PLT 314 10^3/uL (150-450); RED BLOOD CELL COUNT 4.84 10^6/uL (4.2-5.4); WHITE BLOOD CELL COUNT,WBC 18.4 10^3/uL (5.0-10.0)
[2022-10-15 18:29] LABS: ALANINE AMINOTRANSFERASE,ALT 115 U/L (14-59); ALBUMIN 2.8 g/dL (3.4-5.0); ALKALINE PHOSPHATASE 214 U/L (46-116); ANION GAP 19.2 mEq/L (7-13); ASPARTATE AMNIOTRANSFERASE,AST 105 U/L (15-37); BILIRUBIN TOTAL 0.4 mg/dL (0.2-1.0); BLOOD UREA NITROGEN,BUN 8 mg/dL (7-18); BUN/CREATININE RATIO 12.5 (No establ ref range); CALCIUM 8.3 mg/dL (8.5-10.1); CARBON DIOXIDE,CO2 24 mmol/L (21-32); CHLORIDE,CL 98 mmol/L (98-107); CREATININE 0.64 mg/dL (0.55-1.02); GLUCOSE RANDOM 201 mg/dL (70-99); POTASSIUM,K 3.2 mmol/L (3.5-5.1); PROTEIN TOTAL,TP 8.6 g/dL (6.4-8.2); SODIUM,NA 138 mmol/L (136-145)
[2022-10-15 18:38] LABS: LACTIC ACID 5.9 mmol/L (0.4-2.0)
[2022-10-15 18:41] LABS: APPEARANCE,URINE CLEAR (CLEAR); BILIRUBIN,URINE NEGATIVE (NEGATIVE); COLOR,URINE YELLOW (YELLOW); GLUCOSE,URINE 250 (NEGATIVE); KETONES,URINE NEGATIVE (NEGATIVE); LEUKOCYTE ESTERASE,URINE SMALL (NEGATIVE); NITRITE,URINE NEGATIVE (NEGATIVE); OCCULT BLOOD,URINE SMALL (NEGATIVE); PROTEIN,URINE NEGATIVE (NEGATIVE); UROBILINOGEN,URINE 0.2 mg/dL (0.2-1.0)
[2022-10-15 18:42] LABS: A/G RATIO 0.48; C-REACTIVE PROTEIN 26.4 mg/dL (0.0-0.9); ESTIMATED GFR 112 mL/min (>=60)
[2022-10-15 18:49] LABS: BACTERIA,URINE FEW /HPF (0-FEW/HPF); EPITHELIAL CELLS,URINE MODERATE /HPF (NOT SEEN); RBC,URINE 0-5 /HPF (0-5)
[2022-10-15] MEDS ORDERED: Thiamine 100 MG Tab PO ONE ×2 (19:06→23:00)
[2022-10-15] MEDS ORDERED: Potassium Chloride 10 MEQ Tab.ER PO ONE (19:30)
[2022-10-15] MEDS ORDERED: fentaNYL 100 MCG/2 ML SDV IVPUSH ONE (19:38)
[2022-10-15] MEDS ORDERED: Ondansetron 4 MG Tab.DIS PO PRN (20:52)
[2022-10-15] MEDS ORDERED: Ibuprofen 600 MG Tab PO PRN (20:52)
[2022-10-15] MEDS ORDERED: HYDROmorphone 1 MG/ML Syringe IVPUSH ONE (21:03)
[2022-10-15] MEDS ORDERED: fentaNYL 100 MCG/2 ML SDV IVPUSH PRN (21:06)
[2022-10-15] MEDS ORDERED: Enoxaparin 40 MG/0.4 ML Syringe SUBCUT SCH (21:45)
[2022-10-15] MEDS: Polyethylene Glycol 3350 Powder 17 GM Packet PO SCH (22:30)
[2022-10-15] MEDS: Nicotine 21 MG/24 Hr Patch TRDERM SCH (22:48)
[2022-10-15] MEDS: oxyCODONE 5 MG Tab PO PRN (22:50)
[2022-10-15] MEDS: Acetaminophen 325 MG Tab PO SCH (22:52)
[2022-10-15] MEDS ORDERED: LORazepam 2 MG/ML SDV IV PRN (23:13)
[2022-10-15] MEDS: Lactated Ringers 1,000 ML IV SCH (23:18)
[2022-10-15] MEDS: LORazepam 0.5 MG Tab PO PRN (23:54)
[2022-10-16] MEDS: oxyCODONE 5 MG Tab PO PRN ×2 (05:40→10:18)
[2022-10-16] MEDS: Acetaminophen 325 MG Tab PO SCH (05:41)
[2022-10-16 06:34] LABS: HEMOGLOBIN 8.9 g/dL (12.0-16.0); MEAN CORPUSCULAR HEMOGLOBIN 23.5 pg (27.0-34.0); MEAN CORPUSCULAR HGB CONC 31.8 g/dL (33.0-35.0); MEAN CORPUSCULAR VOLUME 74.1 fL (80-100); RED BLOOD CELL COUNT 3.78 10^6/uL (4.2-5.4); WHITE BLOOD CELL COUNT,WBC 15.2 10^3/uL (5.0-10.0)
[2022-10-16 06:45] LABS: ANION GAP 12.5 mEq/L (7-13); CALCIUM 7.3 mg/dL (8.5-10.1); CREATININE 0.59 mg/dL (0.55-1.02); EST CRCL DRUG DOSING (CG) 97.24 mL/min; MAGNESIUM 1.2 mg/dL (1.8-2.4); POTASSIUM,K 3.5 mmol/L (3.5-5.1)
[2022-10-16] MEDS: Lactated Ringers 1,000 ML IV SCH (08:57)
[2022-10-16] MEDS ORDERED: Magnesium Sulfate/Water 4 GM in Premix Bag 1 BAG IV ONE (09:01)
[2022-10-16] MEDS: Nicotine 21 MG/24 Hr Patch TRDERM SCH (09:35)
[2022-10-16] MEDS ORDERED: oxyCODONE 5 MG Tab PO PRN (09:58)
[2022-10-16] MEDS: Polyethylene Glycol 3350 Powder 17 GM Packet PO SCH (10:10)
[2022-10-16] MEDS: LORazepam 0.5 MG Tab PO PRN (10:14)
[2022-10-16] MEDS ORDERED: Folic Acid 1 MG Tab PO SCH (10:30)
[2022-10-16] MEDS ORDERED: Iopamidol 612 MG/ML 100 ML Bottle IVPUSH ONE (10:30)
[2022-10-16] MEDS ORDERED: Multivitamin Tab PO SCH (10:30)
[2022-10-16] MEDS ORDERED: chlordiazePOXIDE 25 MG Cap PO SCH (10:30)
[2022-10-16 11:49] VITALS: BP 104/66; PULSE 76
[2022-10-16] MEDS ORDERED: cefTRIAXone 2 GM Vial IVPUSH SCH (18:00)
[2022-10-16] MEDS ORDERED: Heparin Sodium 5,000 Units/ML Vial SUBCUT SCH (21:00)
[2022-10-17] MEDS ORDERED: Thiamine 100 MG Tab PO SCH (09:00)
== END 2022-10-16 12:40 | DRG 559 ==
LOC: DL.ED 17:53 → DL.MS 20:20
PROVIDERS: ADMIT Family Medicine; ATTEND Hospitalist
DX: T84.629A Infection and inflammatory reaction due to internal fixation device of unspecified bone of leg, initial encounter (principal); A41.9 Sepsis, unspecified organism; R65.20 Severe sepsis without septic shock; E87.20 Acidosis, unspecified; M06.9 Rheumatoid arthritis, unspecified; F32.A Depression, unspecified; F17.210 Nicotine dependence, cigarettes, uncomplicated; D64.9 Anemia, unspecified; E87.6 Hypokalemia; E83.42 Hypomagnesemia; F10.20 Alcohol dependence, uncomplicated; Z79.899 Other long term (current) drug therapy; Z98.890 Other specified postprocedural states; Z59.00 Homelessness unspecified; Z98.51 Tubal ligation status; Z56.0 Unemployment, unspecified
CPT/HCPCS: 36415; 73701-LT; 80048; 80053; 81001; 82947; 83605; 83735; 85025; 85027; 86140; 87040; 87086; 87088; 87186; 96361; 96365; 96375; 99284-25; 99285; A9270-GY; J0696; J1170; J1650; J2270; J3010; J3370; J3475; J3490; J7030; J7050; J7060; J7120; Q9967

== ENCOUNTER 2023-01-20 21:03 | Emergency (ER) | payer MEDICAID ==
[2023-01-20 21:11] LABS: BASOPHILS PERCENT AUTO 0.1 % (0.0-1.0); HEMATOCRIT 35.7 % (37.0-47.0); HEMOGLOBIN 10.7 g/dL (12.0-16.0); MEAN CORPUSCULAR VOLUME 73.5 fL (80-100); MONOCYTES PERCENT AUTO 3.6 % (2-8); NEUTROPHILS PERCENT AUTO 81.3 % (42.2-75.2); PLATELET COUNT,PLT 392 10^3/uL (150-450); RED BLOOD CELL COUNT 4.86 10^6/uL (4.2-5.4)
[2023-01-20 21:39] LABS: A/G RATIO 0.7; ALANINE AMINOTRANSFERASE,ALT 15 U/L (14-59); ALBUMIN 3.4 g/dL (3.4-5.0); ALKALINE PHOSPHATASE 103 U/L (46-116); ANION GAP 12.3 mEq/L (7-13); ASPARTATE AMNIOTRANSFERASE,AST 14 U/L (15-37); BILIRUBIN TOTAL 0.3 mg/dL (0.2-1.0); BLOOD UREA NITROGEN,BUN 8 mg/dL (7-18); BUN/CREATININE RATIO 12.9 (No establ ref range); CALCIUM 8.6 mg/dL (8.5-10.1); CARBON DIOXIDE,CO2 26 mmol/L (21-32); CHLORIDE,CL 103 mmol/L (98-107); CREATININE 0.62 mg/dL (0.55-1.02); EST CRCL DRUG DOSING (CG) 91.58 mL/min; ESTIMATED GFR 113 mL/min (>=60); ETHANOL BLOOD MEDICAL < 3 mg/dL (0); GLUCOSE RANDOM 113 mg/dL (70-99); LIPASE 19 U/L (16-77); POTASSIUM,K 3.3 mmol/L (3.5-5.1); PROTEIN TOTAL,TP 8.1 g/dL (6.4-8.2); SODIUM,NA 138 mmol/L (136-145)
[2023-01-20 23:29] LABS: APPEARANCE,URINE CLEAR (CLEAR); BILIRUBIN,URINE NEGATIVE (NEGATIVE); COLOR,URINE YELLOW (YELLOW); GLUCOSE,URINE NEGATIVE (NEGATIVE); KETONES,URINE 40 (NEGATIVE); LEUKOCYTE ESTERASE,URINE NEGATIVE (NEGATIVE); NITRITE,URINE NEGATIVE (NEGATIVE); OCCULT BLOOD,URINE NEGATIVE (NEGATIVE); PROTEIN,URINE 30 (NEGATIVE); UROBILINOGEN,URINE 0.2 mg/dL (0.2-1.0)
[2023-01-20 23:33] LABS: AMPHETAMINES,URINE NEGATIVE (NEGATIVE); BARBITURATES,URINE NEGATIVE (NEGATIVE); BENZODIAZEPINE,URINE NEGATIVE (NEGATIVE); MDMA (ECSTASY), URINE NEGATIVE (NEGATIVE); METHADONE,URINE NEGATIVE (NEGATIVE); METHAMPHETAMINES,URINE NEGATIVE (NEGATIVE); OPIATES,URINE NEGATIVE (NEGATIVE); OXYCODONE,URINE NEGATIVE (NEGATIVE); PHENCYCLIDINE,URINE NEGATIVE (NEGATIVE); TCA,URINE NEGATIVE (NEGATIVE)
[2023-01-20 23:38] LABS: BACTERIA,URINE FEW /HPF (0-FEW/HPF); EPITHELIAL CELLS,URINE MODERATE /HPF (NOT SEEN); MUCUS,URINE MODERATE /LPF (NOT SEEN); RBC,URINE 0-5 /HPF (0-5); WBC,URINE 0-5 /HPF (0-5/HPF)
[2023-01-21 01:19] VITALS: BP 154/78; PULSE 68
== END 2023-01-21 01:17 | disposition home or self-care (01) ==
LOC: DL.ED 21:03
DX: R10.31 Right lower quadrant pain (principal); Z79.899 Other long term (current) drug therapy
CPT/HCPCS: 36415; 80053; 80305-QW; 80307; 81001; 81025; 83690; 85025; 99283; 99284

== ENCOUNTER 2023-07-03 18:12 | Emergency (ER) | payer MEDICAID ==
[2023-07-03 19:29] LABS: BASOPHILS PERCENT AUTO 0.2 % (0.0-1.0); HEMATOCRIT 31.4 % (37.0-47.0); HEMOGLOBIN 9.5 g/dL (12.0-16.0); LYMPHOCYTES PERCENT AUTO 5.5 % (20.5-50.1); MEAN CORPUSCULAR HEMOGLOBIN 19.9 pg (27.0-34.0); MEAN CORPUSCULAR HGB CONC 30.3 g/dL (33.0-35.0); MEAN CORPUSCULAR VOLUME 65.7 fL (80-100); MONOCYTES PERCENT AUTO 3.5 % (2-8); NEUTROPHILS PERCENT AUTO 90.8 % (42.2-75.2); PLATELET COUNT,PLT 509 10^3/uL (150-450); RED BLOOD CELL COUNT 4.78 10^6/uL (4.2-5.4); WHITE BLOOD CELL COUNT,WBC 15.4 10^3/uL (5.0-10.0)
[2023-07-03] MEDS: Promethazine 25 MG/ML SDV IM ONE (19:30)
[2023-07-03] MEDS: Sodium Chloride 0.9% 10 ML Syringe FLUSH PRN (19:36)
[2023-07-03 19:49] LABS: HCG QUALITATIVE,SERUM NEGATIVE (NEGATIVE)
[2023-07-03 19:51] LABS: A/G RATIO 0.7; ALANINE AMINOTRANSFERASE,ALT 15 U/L (14-59); ALBUMIN 3.7 g/dL (3.4-5.0); ALKALINE PHOSPHATASE 95 U/L (46-116); ASPARTATE AMNIOTRANSFERASE,AST 13 U/L (15-37); BILIRUBIN TOTAL 0.3 mg/dL (0.2-1.0); BLOOD UREA NITROGEN,BUN 13 mg/dL (7-18); BUN/CREATININE RATIO 17.8 (No establ ref range); CALCIUM 8.9 mg/dL (8.5-10.1); CARBON DIOXIDE,CO2 22 mmol/L (21-32); CHLORIDE,CL 105 mmol/L (98-107); CREATININE 0.73 mg/dL (0.55-1.02); EST CRCL DRUG DOSING (CG) 77.78 mL/min; ESTIMATED GFR 104 mL/min (>=60); ETHANOL BLOOD MEDICAL < 3 mg/dL (0); GLUCOSE RANDOM 169 mg/dL (70-99); SODIUM,NA 143 mmol/L (136-145)
[2023-07-03] MEDS: Iopamidol 612 MG/ML 100 ML Bottle IVPUSH ONE (20:07)
[2023-07-03 21:22] LABS: APPEARANCE,URINE SLIGHTLY CLOUDY (CLEAR); BILIRUBIN,URINE NEGATIVE (NEGATIVE); COLOR,URINE YELLOW (YELLOW); GLUCOSE,URINE NEGATIVE (NEGATIVE); KETONES,URINE 80 (NEGATIVE); LEUKOCYTE ESTERASE,URINE NEGATIVE (NEGATIVE); NITRITE,URINE NEGATIVE (NEGATIVE); OCCULT BLOOD,URINE TRACE-INTACT (NEGATIVE); PH,URINE 7.5 (5.0-9.0); PROTEIN,URINE NEGATIVE (NEGATIVE); UROBILINOGEN,URINE 0.2 mg/dL (0.2-1.0)
[2023-07-03 21:23] LABS: AMPHETAMINES,URINE NEGATIVE (NEGATIVE); BARBITURATES,URINE NEGATIVE (NEGATIVE); BENZODIAZEPINE,URINE NEGATIVE (NEGATIVE); MDMA (ECSTASY), URINE NEGATIVE (NEGATIVE); METHADONE,URINE NEGATIVE (NEGATIVE); METHAMPHETAMINES,URINE NEGATIVE (NEGATIVE); OPIATES,URINE NEGATIVE (NEGATIVE); OXYCODONE,URINE NEGATIVE (NEGATIVE); PHENCYCLIDINE,URINE NEGATIVE (NEGATIVE); TCA,URINE NEGATIVE (NEGATIVE)
[2023-07-03 21:26] LABS: BACTERIA,URINE FEW /HPF (0-FEW/HPF); EPITHELIAL CELLS,URINE OCCASIONAL /HPF (NOT SEEN); MUCUS,URINE MODERATE /LPF (NOT SEEN); RBC,URINE 0-5 /HPF (0-5); WBC,URINE 0-5 /HPF (0-5/HPF)
[2023-07-03] MEDS: Ketorolac 30 MG/ML SDV IVPUSH ONE (22:12)
[2023-07-03] MEDS: cefTRIAXone 1 GM Vial IVPUSH ONE (22:12)
[2023-07-03] MEDS: Sodium Chloride 0.9% 1,000 ML IV ONE (22:18)
[2023-07-03 22:23] VITALS: BP 138/73; PULSE 73
== END 2023-07-03 22:25 | disposition home or self-care (01) ==
LOC: DL.ED 18:12
DX: R10.31 Right lower quadrant pain (principal); Z79.899 Other long term (current) drug therapy; Z79.2 Long term (current) use of antibiotics; Z79.891 Long term (current) use of opiate analgesic
CPT/HCPCS: 36415; 74177; 80053; 80305-QW; 80307; 81001; 83605; 84703; 85025; 96361; 96372; 96374; 96375; 99283; 99284-25; J0696; J1885; J2550; J3490; J7030; Q9967

== ENCOUNTER 2023-08-19 11:31 | Emergency (ER) | payer MEDICAID ==
[2023-08-19] MEDS: Ondansetron 4 MG/2 ML SDV IVPUSH ONE (11:55)
[2023-08-19] MEDS: HYDROmorphone 1 MG/ML Syringe IVPUSH ONE (12:05)
[2023-08-19 12:17] LABS: BASOPHILS PERCENT AUTO 0.4 % (0.0-1.0); HEMATOCRIT 34.6 % (37.0-47.0); HEMOGLOBIN 10.4 g/dL (12.0-16.0); LYMPHOCYTES PERCENT AUTO 22.3 % (20.5-50.1); MEAN CORPUSCULAR HEMOGLOBIN 19.8 pg (27.0-34.0); MEAN CORPUSCULAR HGB CONC 30.1 g/dL (33.0-35.0); MEAN CORPUSCULAR VOLUME 65.9 fL (80-100); MONOCYTES PERCENT AUTO 7.5 % (2-8); NEUTROPHILS PERCENT AUTO 69.8 % (42.2-75.2); PLATELET COUNT,PLT 556 10^3/uL (150-450); RED BLOOD CELL COUNT 5.25 10^6/uL (4.2-5.4); WHITE BLOOD CELL COUNT,WBC 5.6 10^3/uL (5.0-10.0)
[2023-08-19 12:26] LABS: A/G RATIO 0.9; ALANINE AMINOTRANSFERASE,ALT 28 U/L (14-59); ALBUMIN 3.9 g/dL (3.4-5.0); ALKALINE PHOSPHATASE 135 U/L (46-116); AMYLASE 84 U/L (25-115); ANION GAP 14.8 mEq/L (7-13); ASPARTATE AMNIOTRANSFERASE,AST 15 U/L (15-37); BILIRUBIN TOTAL 0.3 mg/dL (0.2-1.0); BLOOD UREA NITROGEN,BUN 10 mg/dL (7-18); BUN/CREATININE RATIO 16.9 (No establ ref range); C-REACTIVE PROTEIN < 0.50 ng/dL (<=0.50); CALCIUM 9.1 mg/dL (8.5-10.1); CARBON DIOXIDE,CO2 26 mmol/L (21-32); CHLORIDE,CL 106 mmol/L (98-107); CREATININE 0.59 mg/dL (0.55-1.02); EST CRCL DRUG DOSING (CG) 96.24 mL/min; ESTIMATED GFR 114 mL/min (>=60); ETHANOL BLOOD MEDICAL < 3 mg/dL (0); GLUCOSE RANDOM 110 mg/dL (70-99); LIPASE 21 U/L (16-77); MAGNESIUM 1.8 mg/dL (1.8-2.4); POTASSIUM,K 3.8 mmol/L (3.5-5.1); PROTEIN TOTAL,TP 8.3 g/dL (6.4-8.2); SODIUM,NA 143 mmol/L (136-145)
[2023-08-19 12:27] LABS: LACTIC ACID 1.8 mmol/L (0.4-2.0)
[2023-08-19 12:35] LABS: PROTHROMBIN TIME 10.1 SEC (9.0-12.0); PTT,PARTIAL THROMBOPLSTIN TIME 24.2 SEC (22.0-34.0)
[2023-08-19 12:39] LABS: AMPHETAMINES,URINE NEGATIVE (NEGATIVE); BARBITURATES,URINE NEGATIVE (NEGATIVE); BENZODIAZEPINE,URINE NEGATIVE (NEGATIVE); MDMA (ECSTASY), URINE NEGATIVE (NEGATIVE); METHADONE,URINE NEGATIVE (NEGATIVE); METHAMPHETAMINES,URINE NEGATIVE (NEGATIVE); OPIATES,URINE NEGATIVE (NEGATIVE); OXYCODONE,URINE NEGATIVE (NEGATIVE); PHENCYCLIDINE,URINE NEGATIVE (NEGATIVE); TCA,URINE NEGATIVE (NEGATIVE)
[2023-08-19 12:40] LABS: APPEARANCE,URINE SLIGHTLY CLOUDY (CLEAR); BILIRUBIN,URINE NEGATIVE (NEGATIVE); COLOR,URINE YELLOW (YELLOW); GLUCOSE,URINE NEGATIVE (NEGATIVE); KETONES,URINE 40 (NEGATIVE); LEUKOCYTE ESTERASE,URINE NEGATIVE (NEGATIVE); NITRITE,URINE NEGATIVE (NEGATIVE); OCCULT BLOOD,URINE LARGE (NEGATIVE); PH,URINE 8.5 (5.0-9.0); PROTEIN,URINE 100 (NEGATIVE); UROBILINOGEN,URINE 0.2 mg/dL (0.2-1.0)
[2023-08-19] MEDS: Iopamidol 612 MG/ML 100 ML Bottle IVPUSH ONE (12:40)
[2023-08-19 12:50] LABS: BACTERIA,URINE OCCASIONAL /HPF (0-FEW/HPF); EPITHELIAL CELLS,URINE FEW /HPF (NOT SEEN); MUCUS,URINE FEW /LPF (NOT SEEN); RBC,URINE >100 /HPF (0-5); WBC,URINE 0-5 /HPF (0-5/HPF)
[2023-08-19 13:38] VITALS: BP 99/68; PULSE 65
[2023-08-19] MEDS: Pantoprazole 40 MG Vial IVPUSH ONE (13:57)
[2023-08-19] MEDS: GI Cocktail Oral Solution 30 ML PO ONE (13:57)
[2023-08-19] MEDS: Sennosides/Docusate Sodium 50-8.6 MG Tab PO ONE (14:06)
== END 2023-08-19 14:28 | disposition home or self-care (01) ==
LOC: DL.ED 11:31
DX: K29.00 Acute gastritis without bleeding (principal); Z79.899 Other long term (current) drug therapy
CPT/HCPCS: 36415; 74177; 80053; 80305; 80307; 81001; 81025; 82150; 83605; 83690; 83735; 84145; 84484; 85025; 85610; 85730; 86140; 87040; 93005; 96374; 96375; 99285; A9270; C9113; J1170; J2405; Q9967

== ENCOUNTER 2023-08-23 13:33 | Observation (INO) | payer MEDICAID ==
[2023-08-23] MEDS: Ondansetron 4 MG/2 ML SDV IVPUSH ONE (14:08)
[2023-08-23] MEDS: Sodium Chloride 0.9% 1,000 ML IV ONE (14:08)
[2023-08-23 14:17] LABS: BASOPHILS PERCENT AUTO 0.1 % (0.0-1.0); HEMATOCRIT 32.8 % (37.0-47.0); HEMOGLOBIN 9.9 g/dL (12.0-16.0); LYMPHOCYTES PERCENT AUTO 6.1 % (20.5-50.1); MEAN CORPUSCULAR HGB CONC 30.2 g/dL (33.0-35.0); MEAN CORPUSCULAR VOLUME 66.1 fL (80-100); MONOCYTES PERCENT AUTO 2.7 % (2-8); NEUTROPHILS PERCENT AUTO 91.1 % (42.2-75.2); PLATELET COUNT,PLT 518 10^3/uL (150-450); RED BLOOD CELL COUNT 4.96 10^6/uL (4.2-5.4); WHITE BLOOD CELL COUNT,WBC 8.5 10^3/uL (5.0-10.0)
[2023-08-23 14:36] LABS: A/G RATIO 0.9; ALANINE AMINOTRANSFERASE,ALT 22 U/L (14-59); ALKALINE PHOSPHATASE 120 U/L (46-116); AMYLASE 64 U/L (25-115); ANION GAP 15.1 mEq/L (7-13); ASPARTATE AMNIOTRANSFERASE,AST 16 U/L (15-37); BILIRUBIN TOTAL 0.3 mg/dL (0.2-1.0); BLOOD UREA NITROGEN,BUN 13 mg/dL (7-18); BUN/CREATININE RATIO 18.3 (No establ ref range); CARBON DIOXIDE,CO2 27 mmol/L (21-32); CHLORIDE,CL 108 mmol/L (98-107); CREATININE 0.71 mg/dL (0.55-1.02); EST CRCL DRUG DOSING (CG) 79.28 mL/min; GLUCOSE RANDOM 168 mg/dL (70-99); LIPASE 18 U/L (16-77); POTASSIUM,K 3.1 mmol/L (3.5-5.1); PROTEIN TOTAL,TP 8.3 g/dL (6.4-8.2); SODIUM,NA 147 mmol/L (136-145)
[2023-08-23 14:37] LABS: ESTIMATED GFR 107 mL/min (>=60); ETHANOL BLOOD MEDICAL < 3 mg/dL (0)
[2023-08-23] MEDS: Ketorolac 30 MG/ML SDV IM ONE (14:45)
[2023-08-23] MEDS: Pantoprazole 40 MG Vial IVPUSH ONE (14:45)
[2023-08-23 15:44] LABS: AMPHETAMINES,URINE NEGATIVE (NEGATIVE); BARBITURATES,URINE NEGATIVE (NEGATIVE); BENZODIAZEPINE,URINE NEGATIVE (NEGATIVE); MDMA (ECSTASY), URINE NEGATIVE (NEGATIVE); METHADONE,URINE NEGATIVE (NEGATIVE); METHAMPHETAMINES,URINE NEGATIVE (NEGATIVE); OPIATES,URINE NEGATIVE (NEGATIVE); OXYCODONE,URINE NEGATIVE (NEGATIVE); PHENCYCLIDINE,URINE NEGATIVE (NEGATIVE); TCA,URINE NEGATIVE (NEGATIVE)
[2023-08-23] MEDS: Potassium Chloride 20 MEQ in Premix Bag 1 BAG IV ONE (16:27)
[2023-08-23] MEDS: Potassium Chloride 10 MEQ Tab.ER PO ONE (19:07)
[2023-08-23] MEDS: Ondansetron 4 MG/2 ML SDV IVPUSH PRN (19:28)
[2023-08-23] MEDS: traMADol 50 MG Tab PO SCH (19:29)
[2023-08-23 20:00] LABS: PERCENT FE SATURATION 1.8 % (20.0-50.0)
[2023-08-23] MEDS: Gabapentin 300 MG Cap PO SCH (20:56)
[2023-08-23] MEDS: Morphine 2 MG/ML SYRINGE IVPUSH ONE (20:56)
[2023-08-23] MEDS: Polyethylene Glycol 3350 Powder 17 GM Packet PO PRN (20:57)
[2023-08-23] MEDS: Sennosides/Docusate Sodium 50-8.6 MG Tab PO SCH (20:57)
[2023-08-23] MEDS: Escitalopram 10 MG Tab PO SCH (20:57)
[2023-08-24 06:00] LABS: HEMATOCRIT 29.5 % (37.0-47.0); HEMOGLOBIN 8.7 g/dL (12.0-16.0); MEAN CORPUSCULAR HEMOGLOBIN 19.7 pg (27.0-34.0); MEAN CORPUSCULAR HGB CONC 29.5 g/dL (33.0-35.0); MEAN CORPUSCULAR VOLUME 66.7 fL (80-100); RED BLOOD CELL COUNT 4.42 10^6/uL (4.2-5.4); WHITE BLOOD CELL COUNT,WBC 6.6 10^3/uL (5.0-10.0)
[2023-08-24 06:14] LABS: ANION GAP 13.3 mEq/L (7-13); CALCIUM 8.8 mg/dL (8.5-10.1); CREATININE 0.66 mg/dL (0.55-1.02); EST CRCL DRUG DOSING (CG) 86.03 mL/min; POTASSIUM,K 3.3 mmol/L (3.5-5.1)
[2023-08-24] MEDS: Pantoprazole 40 MG Tab.CR PO SCH (06:16)
[2023-08-24] MEDS: Potassium Chloride 10 MEQ Tab.ER PO ONE (08:55)
[2023-08-24] MEDS: Lisinopril 5 MG Tab PO SCH (08:56)
[2023-08-24] MEDS: Bisacodyl 5 MG Tab PO SCH (08:57)
[2023-08-24] MEDS: Enoxaparin 40 MG/0.4 ML Syringe SUBCUT SCH (08:58)
[2023-08-24] MEDS: Acetaminophen 325 MG Tab PO PRN (10:22)
[2023-08-24] MEDS ORDERED: traMADol 50 MG Tab PO PRN (11:02)
[2023-08-24] MEDS: Sodium Chloride 0.9% 1,000 ML IV SCH (14:49)
[2023-08-24] MEDS ORDERED: Simethicone 80 MG Tab.Chew PO PRN (21:31)
[2023-08-24] MEDS: hydrOXYzine HCl 25 MG Tab PO PRN (21:54)
[2023-08-25] MEDS: Ketorolac 30 MG/ML SDV IM PRN (07:34)
[2023-08-25] MEDS: Haloperidol Lactate 5 MG/ML SDV IVPUSH ONE (08:10)
[2023-08-25] MEDS ORDERED: traMADol 50 MG Tab PO PRN (09:00)
[2023-08-25] MEDS: Ferrous Sulfate 325 MG Tab PO SCH (09:52)
[2023-08-25] MEDS: Potassium Chloride 10 MEQ Tab.ER PO ONE (09:52)
[2023-08-25] MEDS: oxyCODONE ER 10 MG TAB.ER PO ONE (09:54)
[2023-08-25] MEDS: Capsaicin 0.025% Crm 60 GM Tube TOP SCH (12:29)
[2023-08-25] MEDS: Haloperidol Lactate 5 MG/ML SDV IVPUSH SCH (14:39)
[2023-08-25] MEDS: Pantoprazole 40 MG Tab.CR PO SCH (18:26)
[2023-08-25] MEDS: oxyCODONE ER 10 MG TAB.ER PO SCH (21:16)
[2023-08-26] MEDS: Haloperidol Lactate 5 MG/ML SDV IVPUSH SCH (03:22)
[2023-08-26 06:48] LABS: BASOPHILS PERCENT AUTO 0.5 % (0.0-1.0); EOSINOPHILS PERCENT AUTO 0.7 % (1.0-3.0); HEMATOCRIT 33.5 % (37.0-47.0); HEMOGLOBIN 10.1 g/dL (12.0-16.0); MEAN CORPUSCULAR HGB CONC 30.1 g/dL (33.0-35.0); MEAN CORPUSCULAR VOLUME 66.2 fL (80-100); MONOCYTES PERCENT AUTO 14.9 % (2-8); NEUTROPHILS PERCENT AUTO 41.9 % (42.2-75.2); PLATELET COUNT,PLT 529 10^3/uL (150-450); RED BLOOD CELL COUNT 5.06 10^6/uL (4.2-5.4); WHITE BLOOD CELL COUNT,WBC 4.1 10^3/uL (5.0-10.0)
[2023-08-26 07:02] LABS: ALBUMIN 3.3 g/dL (3.4-5.0); ANION GAP 12.2 mEq/L (7-13); BILIRUBIN TOTAL 0.4 mg/dL (0.2-1.0); BUN/CREATININE RATIO 17.2 (No establ ref range); CALCIUM 8.6 mg/dL (8.5-10.1); CREATININE 0.64 mg/dL (0.55-1.02); EST CRCL DRUG DOSING (CG) 88.72 mL/min; MAGNESIUM 1.8 mg/dL (1.8-2.4); POTASSIUM,K 3.2 mmol/L (3.5-5.1); PROTEIN TOTAL,TP 7.2 g/dL (6.4-8.2)
[2023-08-26 07:03] LABS: A/G RATIO 0.85
[2023-08-26 08:29] VITALS: BP 123/74
[2023-08-26 09:28] VITALS: PULSE 86
[2023-08-26] MEDS: Potassium Chloride 10 MEQ Tab.ER PO ONE (11:46)
[2023-08-28] MEDS ORDERED: Methotrexate 2.5 MG Tab PO SCH (09:00)
[2023-09-04] MEDS ORDERED: HUMIRA SUBCUT SCH (10:45)
== END 2023-08-26 11:54 | disposition home or self-care (01) ==
LOC: DL.ED 13:33 → DL.MS 17:34 → UNDOADMOB 17:34 → DL.ED 17:56 → DL.MS 18:53
PROVIDERS: ADMIT Student in an Organized Health Care Education/Training Program; ATTEND Internal Medicine
DX: R10.84 Generalized abdominal pain (principal); E87.6 Hypokalemia; D50.9 Iron deficiency anemia, unspecified; R11.2 Nausea with vomiting, unspecified; M06.9 Rheumatoid arthritis, unspecified; F32.A Depression, unspecified; D75.839 Thrombocytosis, unspecified; Z79.899 Other long term (current) drug therapy
CPT/HCPCS: 36415; 74176; 80048; 80053; 80305; 80307; 81025; 82150; 82728; 83540; 83550; 83605; 83690; 83735; 85025; 85027; 85651; 86140; 93010; 96361; 96365; 96366; 96372; 96375; 96376; 99232; 99238; 99284; 99285; A9270; G0378; J1630; J1650; J1885; J2270; J2405; J2470; J3480; J7030

== ENCOUNTER 2023-09-02 14:14 | Emergency (ER) | payer MEDICAID ==
[2023-09-02] MEDS: Ondansetron 4 MG in Sodium Chloride 0.9% 50 ML IV ONE (14:45)
[2023-09-02] MEDS: Famotidine 20 MG/2 ML SDV IVPUSH ONE (14:45)
[2023-09-02 14:46] LABS: BASOPHILS PERCENT AUTO 0.3 % (0.0-1.0); HEMATOCRIT 34.5 % (37.0-47.0); HEMOGLOBIN 10.5 g/dL (12.0-16.0); LYMPHOCYTES PERCENT AUTO 5.1 % (20.5-50.1); MEAN CORPUSCULAR HEMOGLOBIN 19.9 pg (27.0-34.0); MEAN CORPUSCULAR HGB CONC 30.4 g/dL (33.0-35.0); MEAN CORPUSCULAR VOLUME 65.5 fL (80-100); MONOCYTES PERCENT AUTO 1.9 % (2-8); NEUTROPHILS PERCENT AUTO 92.7 % (42.2-75.2); PLATELET COUNT,PLT 421 10^3/uL (150-450); RED BLOOD CELL COUNT 5.27 10^6/uL (4.2-5.4); WHITE BLOOD CELL COUNT,WBC 7.4 10^3/uL (5.0-10.0)
[2023-09-02] MEDS: Lactated Ringers 1,000 ML IV ONE (14:46)
[2023-09-02 14:48] LABS: APPEARANCE,URINE SLIGHTLY CLOUDY (CLEAR); BILIRUBIN,URINE NEGATIVE (NEGATIVE); COLOR,URINE YELLOW (YELLOW); GLUCOSE,URINE NEGATIVE (NEGATIVE); KETONES,URINE 40 (NEGATIVE); LEUKOCYTE ESTERASE,URINE NEGATIVE (NEGATIVE); NITRITE,URINE NEGATIVE (NEGATIVE); OCCULT BLOOD,URINE TRACE-INTACT (NEGATIVE); PH,URINE 6.5 (5.0-9.0); PROTEIN,URINE 100 (NEGATIVE); UROBILINOGEN,URINE 0.2 mg/dL (0.2-1.0)
[2023-09-02 14:58] VITALS: BP 163/107; PULSE 93
[2023-09-02 14:59] LABS: BACTERIA,URINE FEW /HPF (0-FEW/HPF); EPITHELIAL CELLS,URINE MODERATE /HPF (NOT SEEN); MUCUS,URINE MANY /LPF (NOT SEEN); RBC,URINE 0-5 /HPF (0-5); WBC,URINE 0-5 /HPF (0-5/HPF)
[2023-09-02 15:01] LABS: ANION GAP 17.1 mEq/L (7-13); BLOOD UREA NITROGEN,BUN 6 mg/dL (7-18); CALCIUM 9.6 mg/dL (8.5-10.1); CARBON DIOXIDE,CO2 24 mmol/L (21-32); CHLORIDE,CL 104 mmol/L (98-107); CREATININE 0.78 mg/dL (0.55-1.02); GLUCOSE RANDOM 159 mg/dL (70-99); POTASSIUM,K 3.1 mmol/L (3.5-5.1); SODIUM,NA 142 mmol/L (136-145)
[2023-09-02 15:02] LABS: ESTIMATED GFR 96 mL/min (>=60)
[2023-09-02] MEDS: Haloperidol Lactate 5 MG/ML SDV IM ONE (15:20)
== END 2023-09-02 16:12 | disposition home or self-care (01) ==
LOC: DL.ED 14:14
DX: R11.2 Nausea with vomiting, unspecified (principal); F12.90 Cannabis use, unspecified, uncomplicated; Z90.49 Acquired absence of other specified parts of digestive tract; Z79.899 Other long term (current) drug therapy; Z88.8 Allergy status to other drugs, medicaments and biological substances
CPT/HCPCS: 36415; 80048; 81001; 85025; 96361; 96372; 96374; 96375; 99284-25; J1630; J2405; J3490; J7120

== ENCOUNTER 2023-09-23 16:00 | Emergency (ER) | payer MEDICAID ==
[2023-09-23 16:22] VITALS: BP 142/79; PULSE 104
[2023-09-23] MEDS ORDERED: Sodium Chloride 0.9% 10 ML Syringe FLUSH PRN (18:13)
[2023-09-23 18:17] LABS: BASOPHILS PERCENT AUTO 0.1 % (0.0-1.0); HEMATOCRIT 34.8 % (37.0-47.0); HEMOGLOBIN 10.8 g/dL (12.0-16.0); LYMPHOCYTES PERCENT AUTO 15.1 % (20.5-50.1); MEAN CORPUSCULAR VOLUME 64.4 fL (80-100); NEUTROPHILS PERCENT AUTO 74.8 % (42.2-75.2); PLATELET COUNT,PLT 559 10^3/uL (150-450); WHITE BLOOD CELL COUNT,WBC 9.2 10^3/uL (5.0-10.0)
[2023-09-23] MEDS: Sodium Chloride 0.9% 1,000 ML IV ONE (18:25)
[2023-09-23] MEDS: Ondansetron 4 MG/2 ML SDV IVPUSH ONE (18:26)
[2023-09-23 18:29] LABS: APPEARANCE,URINE CLOUDY (CLEAR); BILIRUBIN,URINE NEGATIVE (NEGATIVE); COLOR,URINE DARK YELLOW (YELLOW); GLUCOSE,URINE NEGATIVE (NEGATIVE); KETONES,URINE TRACE (NEGATIVE); LEUKOCYTE ESTERASE,URINE TRACE (NEGATIVE); NITRITE,URINE NEGATIVE (NEGATIVE); OCCULT BLOOD,URINE SMALL (NEGATIVE); PROTEIN,URINE 100 (NEGATIVE); UROBILINOGEN,URINE 0.2 mg/dL (0.2-1.0)
[2023-09-23 18:32] LABS: ALANINE AMINOTRANSFERASE,ALT 32 U/L (14-59); ALBUMIN 4.5 g/dL (3.4-5.0); ALKALINE PHOSPHATASE 108 U/L (46-116); AMYLASE 90 U/L (25-115); ANION GAP 15.8 mEq/L (7-13); ASPARTATE AMNIOTRANSFERASE,AST 48 U/L (15-37); BILIRUBIN TOTAL 0.6 mg/dL (0.2-1.0); BLOOD UREA NITROGEN,BUN 22 mg/dL (7-18); BUN/CREATININE RATIO 21.6 (No establ ref range); CALCIUM 9.6 mg/dL (8.5-10.1); CARBON DIOXIDE,CO2 28 mmol/L (21-32); CHLORIDE,CL 97 mmol/L (98-107); CREATININE 1.02 mg/dL (0.55-1.02); GLUCOSE RANDOM 122 mg/dL (70-99); LIPASE 28 U/L (16-77); POTASSIUM,K 3.8 mmol/L (3.5-5.1); PROTEIN TOTAL,TP 9.1 g/dL (6.4-8.2); SODIUM,NA 137 mmol/L (136-145)
[2023-09-23 18:33] LABS: ESTIMATED GFR 70 mL/min (>=60); LACTIC ACID 1.9 mmol/L (0.4-2.0)
[2023-09-23 18:35] LABS: AMPHETAMINES,URINE NEGATIVE (NEGATIVE); BARBITURATES,URINE NEGATIVE (NEGATIVE); BENZODIAZEPINE,URINE NEGATIVE (NEGATIVE); MDMA (ECSTASY), URINE NEGATIVE (NEGATIVE); METHADONE,URINE NEGATIVE (NEGATIVE); METHAMPHETAMINES,URINE NEGATIVE (NEGATIVE); OPIATES,URINE NEGATIVE (NEGATIVE); OXYCODONE,URINE NEGATIVE (NEGATIVE); PHENCYCLIDINE,URINE NEGATIVE (NEGATIVE); TCA,URINE NEGATIVE (NEGATIVE)
[2023-09-23 19:01] LABS: BACTERIA,URINE MANY /HPF (0-FEW/HPF); EPITHELIAL CELLS,URINE FEW /HPF (NOT SEEN); HYALINE CASTS,URINE MODERATE; MUCUS,URINE MODERATE /LPF (NOT SEEN); WBC,URINE 40-50 /HPF (0-5/HPF)
[2023-09-23] MEDS ORDERED: Iopamidol 612 MG/ML 100 ML Bottle IVPUSH ONE (19:14)
[2023-09-23] MEDS: Ketorolac 30 MG/ML SDV IVPUSH ONE (19:23)
[2023-09-23] MEDS: cefTRIAXone 1 GM Vial IVPUSH ONE (19:25)
[2023-09-23] MEDS: Pantoprazole 40 MG Vial IVPUSH ONE (19:30)
== END 2023-09-23 19:44 | disposition home or self-care (01) ==
LOC: DL.ED 16:00
DX: N39.0 Urinary tract infection, site not specified (principal); R11.2 Nausea with vomiting, unspecified; F12.90 Cannabis use, unspecified, uncomplicated; Z90.49 Acquired absence of other specified parts of digestive tract; Z79.899 Other long term (current) drug therapy; Z88.8 Allergy status to other drugs, medicaments and biological substances
CPT/HCPCS: 36415; 80053; 80305-QW; 80307; 81001; 81025; 82150; 83605; 83690; 83735; 84484; 85025; 87086; 87088; 87186; 96361; 96374; 96375; 99284; 99284-25; J0696; J1885; J2405; J2470; J7030

== ENCOUNTER → 2023-10-02 | Day surgery (SDC) | payer MEDICAID ==
[~2023-10-02] MED LIST: Dextrose 5%-0.45% NaCl 1,000 ML IV SCH; Midazolam 1 MG/ML 2 ML SDV IV ONE; Midazolam 1 MG/ML 2 ML SDV ONE; fentaNYL 100 MCG/2 ML SDV IV ONE; fentaNYL 100 MCG/2 ML SDV ONE
[2023-10-02] MEDS: Dextrose 5%-0.45% NaCl 1,000 ML IV SCH (06:57)
[2023-10-02] MEDS: fentaNYL 100 MCG/2 ML SDV IV ONE ×2 (07:02→07:03)
[2023-10-02] MEDS: Midazolam 1 MG/ML 2 ML SDV IV ONE ×2 (07:03→07:04)
[2023-10-02 08:26] VITALS: PULSE 53
[2023-10-02 08:27] VITALS: BP 105/57
== END ==
LOC: DL.ENDO 05:45
PROVIDERS: ATTEND Internal Medicine Gastroenterology
DX: D50.9 Iron deficiency anemia, unspecified (principal)
CPT/HCPCS: 43239; 81025; 87077; J2250; J3010; J7799

== ENCOUNTER 2023-10-07 07:27 | Day surgery (SDC) | payer MEDICAID ==
[~2023-10-07 07:27] MED LIST changes: -Dextrose 5%-0.45% NaCl 1,000 ML IV SCH; -Midazolam 1 MG/ML 2 ML SDV IV ONE; -fentaNYL 100 MCG/2 ML SDV IV ONE
[2023-10-07] MEDS ORDERED: fentaNYL 100 MCG/2 ML SDV IV ONE (07:28)
[2023-10-07] MEDS ORDERED: Midazolam 1 MG/ML 2 ML SDV IV ONE (07:28)
[2023-10-07] MEDS ORDERED: Dextrose 5%-0.45% NaCl 1,000 ML IV SCH (07:30)
[2023-10-07] MEDS: Dextrose 5%-0.45% NaCl 1,000 ML IV SCH (07:58)
[2023-10-07] MEDS: fentaNYL 100 MCG/2 ML SDV IV ONE ×3 (08:11→08:23)
[2023-10-07] MEDS: Midazolam 1 MG/ML 2 ML SDV IV ONE ×6 (08:12→08:19)
[2023-10-07 09:32] VITALS: BP 145/62; PULSE 58
== END 2023-10-07 09:38 | disposition home or self-care (01) ==
LOC: DL.ENDO 07:27
PROVIDERS: ATTEND Internal Medicine Gastroenterology
DX: D50.9 Iron deficiency anemia, unspecified (principal)
CPT/HCPCS: 81025; J2250; J3010; J7799

== ENCOUNTER 2024-11-22 06:40 | Emergency (ER) | payer MEDICAID ==
[2024-11-22 07:31] LABS: BASOPHILS PERCENT AUTO 0.2 % (0.0-1.0); EOSINOPHILS PERCENT AUTO 0.0 % (1.0-3.0); LYMPHOCYTES PERCENT AUTO 16.2 % (20.5-50.1); MONOCYTES PERCENT AUTO 5.1 % (2-8); NEUTROPHILS PERCENT AUTO 78.5 % (42.2-75.2); PLATELET COUNT,PLT 535 10^3/uL (150-450); RED BLOOD CELL COUNT 5.22 10^6/uL (4.2-5.4); WHITE BLOOD CELL COUNT,WBC 6.1 10^3/uL (5.0-10.0)
[2024-11-22 07:41] LABS: ALANINE AMINOTRANSFERASE,ALT 15.0 U/L (14-59); ASPARTATE AMNIOTRANSFERASE,AST 16.0 U/L (15-37); BILIRUBIN DIRECT 0.1 mg/dL (0.0-0.2); BILIRUBIN INDIRECT 0.2; BILIRUBIN TOTAL 0.3 mg/dL (0.2-1.0); BLOOD UREA NITROGEN,BUN 6.0 mg/dL (7-18); CARBON DIOXIDE,CO2 28.0 mmol/L (21-32); CHLORIDE,CL 104.0 mmol/L (98-107); CREATININE 0.51 mg/dL (0.55-1.02); EST CRCL DRUG DOSING (CG) 109.72 mL/min; GLUCOSE RANDOM 120.0 mg/dL (70-99); POTASSIUM,K 4.2 mmol/L (3.5-5.1); PROTEIN TOTAL,TP 8.3 g/dL (6.4-8.2); SODIUM,NA 141.0 mmol/L (136-145)
[2024-11-22 07:42] LABS: A/G RATIO 0.66; ESTIMATED GFR 117.0 mL/min (>=60)
[2024-11-22] MEDS: Ondansetron 4 MG/2 ML SDV IVPUSH ONE ×3 (07:46→09:21)
[2024-11-22] MEDS: Ondansetron 4 MG/2 ML SDV ONE (07:54)
[2024-11-22 07:55] LABS: INR 0.9 (0.9-1.2)
[2024-11-22] MEDS: Iopamidol 612 MG/ML 100 ML Bottle IVPUSH ONE (08:51)
[2024-11-22 09:17] LABS: APPEARANCE,URINE CLEAR (CLEAR); GLUCOSE,URINE NEGATIVE (NEGATIVE); OCCULT BLOOD,URINE NEGATIVE (NEGATIVE)
[2024-11-22 09:50] LABS: EPITHELIAL CELLS,URINE FEW /HPF (NOT SEEN)
[2024-11-22 10:01] VITALS: BP 160/99; PULSE 71
== END 2024-11-22 10:07 | disposition home or self-care (01) ==
LOC: DL.ED 06:40
DX: R10.84 Generalized abdominal pain (principal); Z88.8 Allergy status to other drugs, medicaments and biological substances; Z79.899 Other long term (current) drug therapy; Z90.49 Acquired absence of other specified parts of digestive tract
CPT/HCPCS: 36415; 74177; 80048; 80076; 81001; 82150; 83690; 84703; 85025; 85610; 96361; 96374; 96375; 96376; 99285; J2405; J7030; Q9967; 99283; J1171

== ENCOUNTER 2024-11-26 07:58 | Emergency (ER) | payer MEDICAID ==
[2024-11-26] MEDS: Ondansetron 4 MG/2 ML SDV IVPUSH ONE (08:21)
[2024-11-26 08:24] LABS: BASOPHILS PERCENT AUTO 0.2 % (0.0-1.0); EOSINOPHILS PERCENT AUTO 0.2 % (1.0-3.0); LYMPHOCYTES PERCENT AUTO 13.5 % (20.5-50.1); MONOCYTES PERCENT AUTO 6.8 % (2-8); NEUTROPHILS PERCENT AUTO 79.3 % (42.2-75.2); PLATELET COUNT,PLT 535 10^3/uL (150-450); RED BLOOD CELL COUNT 4.74 10^6/uL (4.2-5.4); WHITE BLOOD CELL COUNT,WBC 6.0 10^3/uL (5.0-10.0)
[2024-11-26 08:45] LABS: ALANINE AMINOTRANSFERASE,ALT 15 U/L (14-59); ASPARTATE AMNIOTRANSFERASE,AST 12 U/L (15-37); BILIRUBIN TOTAL 0.3 mg/dL (0.2-1.0); BLOOD UREA NITROGEN,BUN 11 mg/dL (7-18); CARBON DIOXIDE,CO2 29 mmol/L (21-32); CHLORIDE,CL 104 mmol/L (98-107); CREATININE 0.56 mg/dL (0.55-1.02); EST CRCL DRUG DOSING (CG) 100.34 mL/min; GLUCOSE RANDOM 107 mg/dL (70-99); POTASSIUM,K 3.7 mmol/L (3.5-5.1); PROTEIN TOTAL,TP 7.5 g/dL (6.4-8.2); SODIUM,NA 140 mmol/L (136-145)
[2024-11-26 08:46] LABS: A/G RATIO 0.79; ESTIMATED GFR 115 mL/min (>=60); ETHANOL BLOOD MEDICAL < 3 mg/dL (0)
[2024-11-26 09:45] LABS: APPEARANCE,URINE SLIGHTLY CLOUDY (CLEAR); GLUCOSE,URINE NEGATIVE (NEGATIVE); OCCULT BLOOD,URINE NEGATIVE (NEGATIVE)
[2024-11-26 09:50] LABS: AMPHETAMINES,URINE NEGATIVE (NEGATIVE); BARBITURATES,URINE NEGATIVE (NEGATIVE); MDMA (ECSTASY), URINE NEGATIVE (NEGATIVE); METHAMPHETAMINES,URINE NEGATIVE (NEGATIVE); OPIATES,URINE NEGATIVE (NEGATIVE); OXYCODONE,URINE NEGATIVE (NEGATIVE); PHENCYCLIDINE,URINE NEGATIVE (NEGATIVE); TCA,URINE NEGATIVE (NEGATIVE)
[2024-11-26 09:53] LABS: EPITHELIAL CELLS,URINE FEW /HPF (NOT SEEN)
[2024-11-26] MEDS: Phenazopyridine 95 MG Tab PO ONE (10:36)
[2024-11-26 11:15] VITALS: BP 152/75; PULSE 78
== END 2024-11-26 11:00 | disposition home or self-care (01) ==
LOC: DL.ED 07:58
DX: N39.0 Urinary tract infection, site not specified (principal); Z79.899 Other long term (current) drug therapy; Z88.8 Allergy status to other drugs, medicaments and biological substances
CPT/HCPCS: 36415; 80053; 80305; 80307; 81001; 83605; 83690; 83735; 84484; 84703; 85025; 87086; 87186; 93005; 93010; 96361; 96374; 96375; 99284; A9270; J0696; J1630; J2405; J7030